=== PATIENT | male | born 1990 | race Caucasian/White ===

== ENCOUNTER 2020-05-17 17:38 | Emergency (ER) | payer SELFPAY ==
[2020-05-17 17:45] VITALS: BP 139/84; PULSE 138; RESP 18; TEMP 36.8; O2SAT 98; BMI 20.5
--- NOTE | 2020-05-17 17:58 | XRR_ITS ---
PROCEDURE INFORMATION: Exam: XR Chest, 1 View Exam date and time: 05/17/2020 6:13 PM Age: 30 years old Clinical indication: Patient HX: C/O shortness of breath and chest pain x 2 weeks. Dyspnea TECHNIQUE: Imaging protocol: XR of the chest Views: 1 view. COMPARISON: CR Chest 2 views* [id number] 09/20/2019 3:57 PM FINDINGS: Lungs: No lung consolidation or pulmonary edema. Pleural space: No pleural effusion or pneumothorax. Heart/Mediastinum: The cardiac silhouette is not enlarged. The mediastinal contours are normal. Bones/joints: No acute osseous abnormality. XR/XR chest 1V portable [id number] IMPRESSION: No acute abnormality.
--- NOTE | 2020-05-17 18:49 | ED_ITS ---
HPI - SOB/Dyspnea General: Chief Complaint: Shortness of Breath/Dyspnea Stated Complaint: covid s/s Time Seen by Provider: 05/17/20 18:06 Source: patient Mode of arrival: ambulatory Limitations: no limitations History of Present Illness: HPI Narrative: Prateek is a nice 30-year-old male who comes in with a complaint of shortness of breath. Patient states that he has an indirect exposure to the COVID-19 virus. He denies any loss of sense of smell, loss of sense of taste, cough, URI symptoms, headache, and fever. She states is possible he had a fever but he never felt as though he did and he never checked. Because of the exposure he was concerned and he presents here to the ER for check Associated symptoms: Deny abdominal pain, chest congestion, chest pain, diaphoresis, dizziness, extremity pain, fever(s), hemoptysis, lightheadedness, nausea, orthopnea, palpitations, syncope or vomiting Review of Systems Const: Denies: fever(s), chills, body aches, fatigue, malaise or diaphoresis Eyes: Denies: change in vision, blurry vision, blind spots, photophobia, eye discharge or eye redness ENMT: Denies: throat pain, odynophagia, hoarseness, swelling of lips/tongue, oral sores, ear or mastoid pain, ear discharge, change in hearing or nasal discharge Card: Denies: chest pain, palpitations, irregular heart rhythm, edema, lightheadedness, syncope, pre-syncope, dyspnea on exertion or orthopnea Resp: Reports: dyspnea; Denies: productive cough, non-productive cough, wheezing, hemoptysis or chest congestion GI: Denies: abdominal pain, nausea, vomiting, hematemesis, coffee ground emesis, heartburn, diarrhea, constipation, GI cramping, hematochezia or melena : Denies: flank pain, dysuria, urinary frequency, urinary urgency or hematuria Musc: Denies: neck pain, back pain, extremity pain, extremity swelling, joint pain, joint swelling, joint redness, joint warmth or joint stiffness Skin/Breast: Denies: rash, pruritus, erythema, skin tenderness or jaundice Neuro: Denies: headache(s), numbness in extremities, weakness in extremities, sensory changes, lack of coordination, difficulty walking, dizziness, vertigo, confusion, Slurred speech present or seizure-like activity Bakari/Lymph: Denies: easy bruising, easy bleeding, petechiae, purpura or enlarged lymph nodes All/Imm: Denies: urticaria, throat swelling, tongue swelling, facial swelling or acute wheezing PFSH ED PFSH: Medical History No pertinent past medical history Surgical History No pertinent past surgical history Physical Exam 2 Const: COMMON NORMALS: no acute distress, patient oriented x3, no limitations, healthy appearing and well nourished GENERAL APPEARANCE: cooperative, well kempt and well developed HENMT: COMMON NORMALS: normocephalic, atraumatic, external ears normal, EAC's normal and Normal external nose present HEAD & SCALP: normal to inspection, normocephalic and atraumatic FACE & SINUS: normal facial exam and face symmetric NOSE: Normal external nose present and Normal nares present EXTERNAL EAR: Yes external ears normal EXTERNAL AUDITORY CANAL: EAC's normal MOUTH: Normal oral and palatal mucosa present, lip normal and tongue normal Eye: COMMON NORMALS: Equal, round and reactive pupils present and conjunctivae normal GENERAL EYE: appearance normal, both eyes and all related structures ALIGNMENT: Yes alignment normal PERIORBITAL: periorbital findings normal EYELID: eyelids normal CONJUNCTIVA: Yes conjunctivae normal SCLERA: sclerae normal PUPIL: Yes Equal, round and reactive pupils present Neck/C-Spine: COMMON NORMALS: full ROM, no lymphadenopathy, supple, no meningeal signs and no JVD GENERAL: Yes normal visual inspection and Yes trachea midline Chest: COMMONS NORMALS: normal inspection of the chest and normal palpation of entire chest wall Resp: COMMON NORMALS: normal respiratory effort, No retractions and No use of accessory muscles EFFORT & INSPECTION: Yes able to speak in complete sentences and Yes symmetric chest movement AUSCULTATION: no crackles, no rales, no rhonchi and no wheezes Cardio: COMMON NORMALS: no JVD, regular rate, regular rhythm, S1 normal heart sound present and S2 normal heart sound present RATE: regular rate RHYTHM: regular rhythm HEART SOUNDS: S1 normal heart sound present, S2 normal heart sound present, no click, no gallops, no murmurs, no rubs and abnormal split S2 GI: COMMON NORMALS: Soft to palpation and No hepatosplenomegaly present PALPATION: Yes Soft to palpation, No Tenderness to palpation present (GI), No Guarding due to palpation present (GI), No Rigid due to palpation, Yes No hepatosplenomegaly present, No Hernia present, No Palpable mass present and No Pulsatile mass present : COMMON NORMALS: Yes no CVA tenderness BLADDER/KIDNEY EXAM: Yes no CVA tenderness Back/Pelvis: COMMON NORMALS: no CVA tenderness, thoracic and lumbar spine normal to inspection, no thoracic nor lumbar tenderness and thoraco-lumbar ROM normal Extremity: COMMON NORMALS: normal to inspection, full ROM, capillary refill normal, no joint enlargement, no clubbing, cyanosis or edema and no calf tenderness Neuro: COMMON NORMALS: patient oriented x3, CN's II-XII intact bilaterally, moves all extremities, no focal motor deficits and no sensory deficits noted MENINGEAL SIGNS: Yes no meningeal signs SPEECH: speech normal Psych: COMMON NORMALS: mental status grossly normal, Normal thought process present, cooperative, normal affect, speech normal and activity/motor behavior normal APPEARANCE: Yes well kempt SPEECH: Yes normal speech THOUGHT PROCESS: Normal thought process present Skin: COMMON NORMALS: no rashes or lesions noted, turgor normal, no jaundice, no petechiae and no mottling GENERAL SKIN EXAM: no rashes or lesions noted and turgor normal Course Vital Signs: Vital signs: Vital Signs Temperature 98.2 F 05/17/20 17:45 Pulse Rate 99 05/17/20 20:15 Respiratory Rate 18 05/17/20 17:45 Blood Pressure 126/85 05/17/20 18:59 Pulse Oximetry 98 05/17/20 17:45 MDM - SOB/Dyspnea MDM Narrative: Medical decision making narrative: Patient is feeling much better and is ready to go home. His heart rate is back down to normal. He is understanding he needs to quarantine himself for the next 14 days until he can get cleared from the COVID. He understands we will contact him with his test results. This time is feeling better. He has no shortness of breath, he has no cough and he has no loss of sense of smell or taste. We will discharge him home but he agrees to return should his symptoms change or worsen. Lab Data: Attestation: I reviewed the patient's lab results. Labs: Lab Results 05/17/20 05/17/20 05/17/20 Range/Units 18:56 18:56 18:56 WBC 11.0 H (4.0-10.0) 10^3/ uL RBC 5.57 H (4.1-5.3) 10^6/u L Hgb 16.8 H (11.7-16.6) g/dL Hct 49.1 (42.0-52.0) % MCV 88.2 (80-94) fL MCH 30.2 (28.0-34.0) pg MCHC 34.2 (30.0-36.0) g/dL RDW 12.3 (12.1-15.1) % Plt Count 275 (130-400) 10^3/c mm MPV 10.4 (7.4-10.4) fL Neut % (Auto) 74.4 % Lymph % (Auto) 17.5 % [place] % (Auto) 7.3 % Eos % (Auto) 0.4 % Baso % (Auto) 0.2 % Neut # (Auto) 8.19 H (1.8-7.7) 10^3/u L Lymph # (Auto) 1.9 (0.8-4.8) 10^3/u L [place] # (Auto) 0.8 (0.2-0.9) 10^3/u L Eos # (Auto) 0.0 (0.0-0.8) 10^3/u L Baso # (Auto) 0.0 (0.0-0.1) 10^3/u L Nucleated RBC % (a uto) 0 % Nucleated RBCs # 0.0 /100WBC D-Dimer <= 0.27 (0-0.59) ug/mIFE U Sodium 141 (136-145) mmol/L Potassium 3.7 (3.5-5.1) mmol/L Chloride 104 (98-107) mmol/L Carbon Dioxide 24 (22-29) mmol/L Anion Gap 16.7 (5-19) BUN 8 (6-20) mg/dL Creatinine 0.8 (0.7-1.2) mg/dL GFR Calculation 115.1 (90-130) mL/min Glucose 96 (65-115) mg/dL Calculated Osmolal ity 288 (285-295) mOsm/k g Lactic Acid (0.5-2.2) mmol/L Calcium 10.5 (8.5-10.5) mg/dL Magnesium 2.3 (1.7-2.3) mg/dL Total Bilirubin 0.5 (0.15-1.2) mg/dL AST 15 (0-40) U/L ALT 17 (0-41) U/L Alkaline Phosphata se 70 (40-130) IU/L Total Protein 7.5 (6.6-8.7) g/dL Albumin 5.0 (3.5-5.2) g/dL Globulin 2.5 (1.3-4.6) g/dL 05/17/20 Range/Units 18:56 WBC (4.0-10.0) 10^3/ uL RBC (4.1-5.3) 10^6/u L Hgb (11.7-16.6) g/dL Hct (42.0-52.0) % MCV (80-94) fL MCH (28.0-34.0) pg MCHC (30.0-36.0) g/dL RDW (12.1-15.1) % Plt Count (130-400) 10^3/c mm MPV (7.4-10.4) fL Neut % (Auto) % Lymph % (Auto) % [place] % (Auto) % Eos % (Auto) % Baso % (Auto) % Neut # (Auto) (1.8-7.7) 10^3/u L Lymph # (Auto) (0.8-4.8) 10^3/u L [place] # (Auto) (0.2-0.9) 10^3/u L Eos # (Auto) (0.0-0.8) 10^3/u L Baso # (Auto) (0.0-0.1) 10^3/u L Nucleated RBC % (a uto) % Nucleated RBCs # /100WBC D-Dimer (0-0.59) ug/mIFE U Sodium (136-145) mmol/L Potassium (3.5-5.1) mmol/L Chloride (98-107) mmol/L Carbon Dioxide (22-29) mmol/L Anion Gap (5-19) BUN (6-20) mg/dL Creatinine (0.7-1.2) mg/dL GFR Calculation (90-130) mL/min Glucose (65-115) mg/dL Calculated Osmolal ity (285-295) mOsm/k g Lactic Acid 1.5 (0.5-2.2) mmol/L Calcium (8.5-10.5) mg/dL Magnesium (1.7-2.3) mg/dL Total Bilirubin (0.15-1.2) mg/dL AST (0-40) U/L ALT (0-41) U/L Alkaline Phosphata se (40-130) IU/L Total Protein (6.6-8.7) g/dL Albumin (3.5-5.2) g/dL Globulin (1.3-4.6) g/dL Imaging Data^: CXR: My impression: No acute cardiopulmonary findings. Discharge Plan Discharge Patient Disposition: Home Clinical Impression: Acute dyspnea Condition: Stable Prescriptions: No Action No Known Home Medications RF: 0 Discharge Orders: Discharge Order (Routine); Ordered 05/17/20 Ordered By: Radha De La Garza Referrals: Andrzej Celaya MD [Primary Care Provider] - 1-3 days Discharge Diet: Advance as tolerated Discharge Activity: Increase activity as tolerated Activity Restrictions/Additional Instructions: Please return to the ER immediately for any of the signs or symptoms listed on your discharge instruction sheets, worsening/changing of your symptoms, you are not getting better as quickly as expected, or for ANY other cause or concerns. Self isolate yourself from everyone until you receive the results of your COVID test. Return to the ER for fever, vomiting, worsening shortness of breath or have any other cause for concern. 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
[2020-05-17 18:59] VITALS: BP 126/85
[2020-05-17 19:14] LABS: Basophils % 0.2 %; Eosinophils % 0.4 %; Hematocrit 49.1 % (42.0-52.0); Hemoglobin 16.8 g/dL (11.7-16.6); Lymphocytes # 1.9 10^3/uL (0.8-4.8); Lymphocytes % 17.5 %; Mean Corpuscular HGB Conc 34.2 g/dL (30.0-36.0); Mean Corpuscular Hemoglobin 30.2 pg (28.0-34.0); Mean Corpuscular Volume 88.2 fL (80-94); Mean Platelet Volume 10.4 fL (7.4-10.4); Monocytes # 0.8 10^3/uL (0.2-0.9); Monocytes % 7.3 %; Neutrophils # 8.19 10^3/uL (1.8-7.7); Neutrophils % 74.4 %; Nucleated Red Blood Cells % 0 %; Platelet Count 275 10^3/cmm (130-400); Red Blood Count 5.57 10^6/uL (4.1-5.3); Red Cell Distribution Width 12.3 % (12.1-15.1)
[2020-05-17 19:28] LABS: D Dimer <= 0.27 ug/mIFEU (0-0.59)
[2020-05-17 19:30] LABS: Lactic Sepsis W/Reflex 1.5 mmol/L (0.5-2.2)
[2020-05-17 19:40] LABS: Alanine Aminotransferase 17 U/L (0-41); Alkaline Phosphatase 70 IU/L (40-130); Anion Gap 16.7 (5-19); Aspartate Amino Transferase 15 U/L (0-40); Blood Urea Nitrogen 8 mg/dL (6-20); Calcium 10.5 mg/dL (8.5-10.5); Carbon Dioxide 24 mmol/L (22-29); Chloride 104 mmol/L (98-107); Creatinine Clr Calc Pharmacy 152.3472; Globulin 2.5 g/dL (1.3-4.6); Glomerular Filtration Rate 115.1 mL/min (90-130); Glucose 96 mg/dL (65-115); Magnesium 2.3 mg/dL (1.7-2.3); Osmolality Calculated 288 mOsm/kg (285-295); Potassium 3.7 mmol/L (3.5-5.1); Sodium 141 mmol/L (136-145); Total Bilirubin 0.5 mg/dL (0.15-1.2); Total Protein 7.5 g/dL (6.6-8.7)
[2020-05-17 20:15] VITALS: PULSE 99
[2020-05-17 20:41] VITALS: BP 115/81; PULSE 94; RESP 16; O2SAT 98
[2020-05-20 01:35] LABS: Quest SARS-CoV-2 RNA NOT DETECTED (NOT DETECTED)
== END 2020-05-17 20:41 | disposition home or self-care (01) ==
PROVIDERS: Emergency Provider Emergency Medicine; PCP Family Medicine
DX: R06.00 Dyspnea, unspecified (principal)
CPT/HCPCS: 12345; 36415; 71045; 80053; 83605; 83735; 85025; 85378; 87040; 87635; 96360; 99283

== ENCOUNTER 2021-06-01 12:56 | Emergency (ER) | payer SELFPAY ==
[2021-06-01 13:22] VITALS: BP 108/67; PULSE 65; RESP 16; TEMP 36.5; O2SAT 97; BMI 20.5
--- NOTE | 2021-06-01 13:56 | ED_ITS ---
HPI - General Adult General: Chief complaint: General Medical Stated complaint: SYNCOPAL EPISODE AFTER SMOKING MARIJUANA Time Seen by Provider: 06/01/21 13:33 History of Present Illness: HPI narrative: Patient states he did not have a syncopal episode. Patient did arrive via ambulance. Patient said he did not want to come but his mother talked him into it. Said after he smoked marijuana he kept repeating same thing over and over. He says he feels fine now. Onset (ago): hour(s) Associated symptoms: Reports no associated symptoms; Deny chest pain, dyspnea, headache(s), nausea, rash or vomiting Review of Systems Const: Denies: fever(s), chills or body aches Eyes: Denies: change in vision or blurry vision ENMT: Denies: throat pain or nasal congestion Card: Denies: chest pain or dyspnea on exertion Resp: Denies: dyspnea, productive cough or non-productive cough GI: Denies: abdominal pain, nausea or vomiting : Denies: difficulty urinating Musc: Denies: extremity pain Skin/Breast: Denies: rash Neuro: Reports: other (Patient says he did not pass out, but felt very tired); Denies: headache(s) Psych: Reports: other (Patient states he just did not feel right after smoking his marijuana today); Denies: anxiety or depression Bakari/Lymph: Denies: easy bruising [facility] ED PFSH: Medical History (Updated 06/01/21 @ 13:56 by YOKO Kumar) No pertinent past medical history Surgical History No pertinent past surgical history Physical Exam Narrative: EXAM NARRATIVE: Patient still appears intoxicated from smoking marijuana today Const: COMMON NORMALS: patient oriented x3 Eye: COMMON NORMALS: Equal, round and reactive pupils present PUPIL: Yes Equal, round and reactive pupils present Cardio: COMMON NORMALS: regular rate and regular rhythm RATE: regular rate RHYTHM: regular rhythm Neuro: COMMON NORMALS: patient oriented x3 Course Vital Signs: Vital signs: Vital Signs Temperature 97.7 F 06/01/21 13:22 Pulse Rate 65 06/01/21 13:22 Respiratory Rate 16 06/01/21 13:22 Blood Pressure 108/67 06/01/21 13:22 Pulse Oximetry 97 06/01/21 13:22 MDM - General Adult MDM Narrative: Medical decision making narrative: Patient states he is ready go home. Patient denies any problems presently. Patient says that he was tired after smoking marijuana today. He said he was forced to come in here did not really want to come in and in 1 to be here now. Patient appears appropriate does appear intoxicated from marijuana smoke. I did discuss since he says he has a history of clinical depression that may be marijuana is not the best choice for him because it can worsen depression. Discharge Plan Discharge Patient Disposition: Home Clinical Impression: Marijuana smoker Condition: Stable Prescriptions: No Action No Known Home Medications RF: 0 Discharge Orders: Discharge ED (Routine); Ordered 06/01/21 Ordered By: Akil Valle Referrals: Andrzej Celaya MD [Primary Care Provider] - Discharge Diet: Usual diet Discharge Activity: Increase activity as tolerated Activity Restrictions/Additional Instructions: Recommend stay away from marijuana if at all possible because history of clinical depression. Follow-up with family medical provider if he have any other problems. Consider other treatment for your medical problems besides marijuana if you can. 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
[2021-06-01 14:03] VITALS: BP 115/71; PULSE 58; RESP 18; O2SAT 95
== END 2021-06-01 14:04 | disposition home or self-care (01) ==
PROVIDERS: Emergency Provider Nurse Practitioner Family; PCP Family Medicine
DX: F12.10 Cannabis abuse, uncomplicated (principal)
CPT/HCPCS: 99282

== ENCOUNTER 2022-04-16 11:12 | Emergency (ER) | payer SELFPAY ==
[2022-04-16 12:22] VITALS: PULSE 90; RESP 18; TEMP 36.7; O2SAT 98
[2022-04-16 12:28] VITALS: BP 89/60
[2022-04-16] MEDS: sodium chloride 0.9% 1,000 ML 999 ML IV ×3 (14:25→17:26)
[2022-04-16] MEDS: ketorolac 30 mg/mL INJ IVP (14:27)
[2022-04-16] MEDS: acetaminophen 500 mg Tablet PO (14:28)
--- NOTE | 2022-04-16 14:31 | ED_ITS ---
HPI - General Adult General: Chief complaint: Urogenital-Male Stated complaint: Back pain/peeing blood Time Seen by Provider: 04/16/22 14:01 History of Present Illness: Patient is a 32-year-old male with a history of prior PEs who presents b/l flank pain and hematuria since this AM. Patient tells me he also has had bilateral lower back pain. Patient denies any prior history of renal colic. Patient denies any prior abdominal surgery. Denies any nausea/vomiting, fever/chills, cough runny nose sore throat, abdominal complaints. Patient denies any testicular pain or new penile discharge. Onset: this morning Duration:ongoing Location:home Severity:moderate Associated symptoms: Deny chest pain, dyspnea, nausea, rash, palpitations or vomiting Review of Systems Const: Denies: fever(s) or chills Eyes: Denies: change in vision ENMT: Denies: mouth pain Card: Denies: chest pain or palpitations Resp: Denies: dyspnea or non-productive cough GI: Denies: abdominal pain, nausea, vomiting or diarrhea : Reports: flank pain (+b/l flank pain) and other (+hematuria); Denies: dysuria Musc: Denies: extremity pain Skin/Breast: Denies: rash or new lesions Neuro: Denies: weakness in extremities Psych: Reports: other (Normal mood) Bakari/Lymph: Denies: easy bruising PFSH ED PFSH: Medical History (Updated 04/16/22 @ 17:35 by Starr Cheatham MD) No pertinent past medical history Surgical History No pertinent past surgical history Social History (Updated 04/16/22 @ 14:32 by Starr Cheatham MD) Smoking and tobacco status: current every day smoker Alcohol intake: never Substance/Drug Use: former Physical Exam Const: COMMON NORMALS: alert HENMT: COMMON NORMALS: atraumatic HEAD & SCALP: atraumatic MOUTH: moist mucous membranes not abnormal Eye: COMMON NORMALS: EOMs intact bilaterally and conjunctivae normal CONJUNCTIVA: Yes conjunctivae normal Neck/C-Spine: COMMON NORMALS: full ROM and supple Resp: COMMON NORMALS: normal respiratory effort and clear to auscultation bilaterally AUSCULTATION: clear to auscultation bilaterally Cardio: COMMON NORMALS: regular rate RATE: regular rate GI: COMMON NORMALS: Soft to palpation and non-tender PALPATION: Yes Soft to palpation OTHER: No focal TTP. NO guarding rebound, guarding, rigidity. +B/l CVA tenderness to percussion. Neg /Neg McBurney's point tenderness, no suprabupic tenderness to palpation. Extremity: COMMON NORMALS: full ROM Neuro: SENSORIUM/ORIENTATION: Yes alert MOTOR EXAM: No Abnormal motor strength present and Other motor observations present (no focal motor deficits) Psych: COMMON NORMALS: speech normal SPEECH: Yes normal speech MOOD & AFFECT: Yes euthymic mood Course Vital Signs: Vital signs: Vital Signs Temperature 98.0 F 04/16/22 18:07 Pulse Rate 90 04/16/22 18:07 Respiratory Rate 18 04/16/22 18:07 Blood Pressure 89/60 04/16/22 18:07 Pulse Oximetry 98 04/16/22 18:07 MDM - General Adult Medical Decision Making 32-year-old male presents emergency room for evaluation of bilateral flank pain and hematuria. Patient has bilateral CVA tenderness to palpation. Afebrile. White count 6.9. UA is consistent with renal colic. Creatinine 1.0. Patient received 2L IVF with morphine/toradol and reports there is improvement in pain. I have given patient close follow-up with urology for reneal colic Patient is given strict intervention for any signs of infection. No suspicion for other acute intra-abdominal pathology including SBO, biliary pathology, appendicitis, diverticulitis, or other emergent condition requiring surgery. I have given patient follow up with our case monitor to be seen by our outpatient Urology for kidney stones. Patient aware of a call from our case monitor to schedule for appointment(s) and verbalizes understanding of the importance of following up. Rx perocet PRN pain Disposition: Discharge. Patient counseled regarding diagnostic impression, treatment plan. Patient given ED strict return precautions to return for continuation, worsening, or development of new symptoms. Instructed to f/u w/ PCP regarding symptoms today. Patient verbalized understanding. Lab Data : 04/16/22 14:29 04/16/22 14:29 Laboratory Results WBC 6.9 10^3/uL (4.0-10.0) 04/16/22 14:29 RBC 5.00 10^6/uL (4.1-5.3) 04/16/22 14: Hgb 15.5 g/dL (11.7-16.6) 04/16/22 14:29 Hct 43.1 % (42.0-52.0) 04/16/22 14: MCV 86.2 fl (80-94) 04/16/22 14: MCH 31.0 pg (28.0-34.0) 04/16/22 14: MCHC 36.0 g/dL (30.0-36.0) 04/16/22 14: RDW 11.9 % (12.1-15.1) L 04/16/22 14: Plt Count 192 10^3/cmm (130-400) 04/16/22 14: MPV 10.8 fL (7.4-10.4) H 04/16/22 14: Neut % (Auto) 57.1 % 04/16/22 14: Lymph % (Auto) 30.7 % 04/16/22 14: [place] % (Auto) 9.0 % 04/16/22 14:29 Eos % (Auto) 2.8 % 04/16/22 14: Baso % (Auto) 0.1 % 04/16/22 14: Neut # (Auto) 3.92 10^3/uL (1.8-7.7) 04/16/22 14: Lymph # (Auto) 2.1 10^3/uL (0.8-4.8) 04/16/22 14:29 [place] # (Auto) 0.6 10^3/uL (0.2-0.9) 04/16/22 14:29 Eos # (Auto) 0.2 10^3/uL (0.0-0.8) 04/16/22 14: Baso # (Auto) 0.0 10^3/uL (0.0-0.1) 04/16/22 14: Nucleated RBC % (auto) 0 % 04/16/22 14: Nucleated RBCs # 0.0 /100WBC 04/16/22 14:29 Sodium 138 mmol/L (136-145) 04/16/22 14: Potassium 4.2 mmol/L (3.5-5.1) 04/16/22 14:29 Chloride 98 mmol/L (98-107) 04/16/22 14:29 Carbon Dioxide 27 mmol/L (22-29) 04/16/22 14:29 Anion Gap 17.2 (5-19) 04/16/22 14:29 BUN 19 mg/dL (6-20) 04/16/22 14: Creatinine 1.0 mg/dL (0.7-1.2) 04/16/22 14:29 GFR Calculation 87.7 mL/min (90-130) L 04/16/22 14:29 Glucose 81 mg/dL (65-115) 04/16/22 14:29 Calculated Osmolality 287 mOsm/kg (285-295) 04/16/22 14: Calcium 9.4 mg/dL (8.5-10.5) 04/16/22 14: Total Bilirubin 0.4 mg/dL (0.15-1.2) 04/16/22 14: AST 19 U/L (0-40) 04/16/22 14: ALT 11 U/L (0-41) 04/16/22 14: Alkaline Phosphatase 56 IU/L (40-130) 04/16/22 14:29 Total Protein 6.7 g/dL (6.6-8.7) 04/16/22 14: Albumin 4.4 g/dL (3.5-5.2) 04/16/22 14: Globulin 2.3 g/dL (1.3-4.6) 04/16/22 14:29 Urine Color Kel[place] (Yellow) 04/16/22 16:18 Urine Appearance Cloudy (CLEAR) 04/16/22 16:18 Urine pH 5 (5-7) 04/16/22 16:18 Ur Specific [place] 1.030 (1.005-1.030) 04/16/22 16:18 Urine Protein Neg (Negative) 04/16/22 16:18 Urine Glucose (UA) Norm (Normal) 04/16/22 16:18 Urine Ketones Negative (Negative) 04/16/22 16:18 Urine Blood 3+ (Negative) H 04/16/22 16:18 Urine Nitrate Negative (Negative) 04/16/22 16:18 Urine Bilirubin Neg (Negative) 04/16/22 16:18 Urine Urobilinogen Norm mg/dL (Negative) 04/16/22 16:18 Ur Leukocyte Esterase Negative (Negative) 04/16/22 16:18 Urine RBC >100 /hpf (0-2) H 04/16/22 16:18 Urine WBC 0-4 /hpf (0-5) H 04/16/22 16:18 Ur Squamous Epith Cells Rare /hpf (0-5) 04/16/22 16:18 Amorphous Sediment Not Reportable 04/16/22 16:18 Urine Bacteria Trace /hpf (NONE) 04/16/22 16:18 Urine Mucus Trace /hpf 04/16/22 16:18 Discharge Plan Discharge Patient Disposition: Home Clinical Impression: Bilateral renal colic Prescriptions: New acetaminophen 500 mg tablet 500 mg PO Q6H PRN (Reason: pain) 5 Days Qty: 20 0RF Discharge Orders: Discharge ED (Routine); Ordered 04/17/22 Ordered By: Starr Cheatham Referrals: Andrzej Celaya MD [Primary Care Provider] - Discharge Diet: Advance as tolerated Discharge Activity: Increase activity as tolerated Patient Instructions: Abdominal Pain (ED) Activity Restrictions/Additional Instructions: Our case monitor will have you follow-up with Urology in the next few days. You would be expected to have a phone call with our case monitor who will put you on the schedule. You can expect a call from us in the next 2-3 days. If you don't hear from us, call us back in the emergency room at [phone]. Please come back if you have any worsening abdominal pain, fever or chills, nausea or vomiting, diarrhea, blood in the stool, inability hold down liquid or solids, or any new concerning complaints. 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
[2022-04-16 14:32] VITALS: BP 89/60; PULSE 90; RESP 18; TEMP 36.7; O2SAT 98
[2022-04-16 15:13] LABS: Basophils % 0.1 %; Eosinophils # 0.2 10^3/uL (0.0-0.8); Eosinophils % 2.8 %; Hematocrit 43.1 % (42.0-52.0); Hemoglobin 15.5 g/dL (11.7-16.6); Lymphocytes # 2.1 10^3/uL (0.8-4.8); Lymphocytes % 30.7 %; Mean Corpuscular Volume 86.2 fl (80-94); Mean Platelet Volume 10.8 fL (7.4-10.4); Monocytes # 0.6 10^3/uL (0.2-0.9); Neutrophils # 3.92 10^3/uL (1.8-7.7); Neutrophils % 57.1 %; Nucleated Red Blood Cells % 0 %; Platelet Count 192 10^3/cmm (130-400); Red Cell Distribution Width 11.9 % (12.1-15.1); White Blood Count 6.9 10^3/uL (4.0-10.0)
[2022-04-16 16:22] LABS: Alanine Aminotransferase 11 U/L (0-41); Albumin Level 4.4 g/dL (3.5-5.2); Alkaline Phosphatase 56 IU/L (40-130); Anion Gap 17.2 (5-19); Aspartate Amino Transferase 19 U/L (0-40); Blood Urea Nitrogen 19 mg/dL (6-20); Calcium 9.4 mg/dL (8.5-10.5); Carbon Dioxide 27 mmol/L (22-29); Chloride 98 mmol/L (98-107); Globulin 2.3 g/dL (1.3-4.6); Glomerular Filtration Rate 87.7 mL/min (90-130); Glucose 81 mg/dL (65-115); Osmolality Calculated 287 mOsm/kg (285-295); Potassium 4.2 mmol/L (3.5-5.1); Sodium 138 mmol/L (136-145); Total Bilirubin 0.4 mg/dL (0.15-1.2); Total Protein 6.7 g/dL (6.6-8.7)
[2022-04-16 16:51] LABS: Add Urine Microscopic? YES; Bilirubin Urine Neg (Negative); Blood Urine 3+ (Negative); Glucose Urine UA Norm (Normal); Ketones Urine Negative (Negative); Leukocyte Esterase Urine Negative (Negative); Nitrate Urine Negative (Negative); Protein Urine Neg (Negative); Urine Appearance Cloudy (CLEAR); Urine Color Amber (Yellow); Urobilinogen Urine Norm (Negative); pH Urine 5 (5-7)
[2022-04-16 16:53] LABS: Bacteria Urine TRACE /hpf; Mucus Urine TRACE /hpf; RBC Urine >100 /hpf (0-2); Squamous Epithelial Cell Urine RARE /hpf (0-5); WBC Urine 0-4 /hpf (0-5)
[2022-04-16 16:54] LABS: Add Urine Culture? Yes
[2022-04-16] MEDS: morphine 4 mg/mL SDV 1 mL IVP (17:26)
[2022-04-16 18:07] VITALS: BP 89/60; PULSE 90; RESP 18; TEMP 36.7; O2SAT 98
--- NOTE | 2022-04-24 11:40 | DCPLANNER ---
Addendum entered by Yue Ace 05/15/22 11:17: gift shop manager was sent the following message about follow up appointment: Clinic tried numerous times and different days to contact this pt. Clinic is not able to reach pt. so the appt. on 05/16/22 will be cancelled. If you have any questions or another phone number please let us know. Batsheva On 04/26/22 @ 17:06 Mik Barboza Wrote To Urology Front Office Patient scheduled for 05/16/22 [id number]@[id number] Appointment to follow. Unable to reach patient. Mik Barboza completed item. Original Note: gift shop manager had message to schedule a follow up appointment for patient with urology. gift shop manager sent patients information to the front office staff at urology. Patients information will be printed and reviewed. Clinic will call patient with appointment information.
== END 2022-04-16 18:10 | disposition home or self-care (01) ==
PROVIDERS: Physician Assistant; Emergency Provider Emergency Medicine; PCP Family Medicine
DX: N23 Unspecified renal colic (principal); F17.210 Nicotine dependence, cigarettes, uncomplicated
CPT/HCPCS: 80053; 81001; 85025; 87086; 96361; 96374; 96375; 96376; 99284; J1885; J2270; J7030

== ENCOUNTER 2023-02-01 12:16 | Emergency (ER) | payer SELFPAY ==
[2023-02-01 11:58] VITALS: BP 124/78; PULSE 105; RESP 16; TEMP 36.7; O2SAT 97; BMI 21.8
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
== END 2023-02-01 12:22 | disposition left against medical advice (07) ==
LOC: ER 12:21
PROVIDERS: Emergency Provider Emergency Medicine; PCP Family Medicine
DX: Z04.1 Encounter for examination and observation following transport accident (principal); F11.90 Opioid use, unspecified, uncomplicated; Z53.21 Procedure and treatment not carried out due to patient leaving prior to being seen by health care provider; F17.210 Nicotine dependence, cigarettes, uncomplicated; V89.2XXA Person injured in unspecified motor-vehicle accident, traffic, initial encounter
CPT/HCPCS: 99282

== ENCOUNTER 2023-02-08 22:57 | Inpatient (IN) | payer SELFPAY ==
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
--- NOTE | 2023-02-08 22:58 | XRR_ITS ---
PROCEDURE INFORMATION: Exam: XR Chest Exam date and time: 02/08/2023 11:09 PM Age: 32 years old Clinical indication: Other: AMS; Additional info: AMS. Od TECHNIQUE: Imaging protocol: Radiologic exam of the chest. Views: 1 view. COMPARISON: CR XR chest 1V portable [id number] 05/17/2020 6:00 PM FINDINGS: Tubes, catheters and devices: Endotracheal tube tip in place 2.8 cm above the felicitas. Lungs: Bilateral right greater left pneumonic infiltrates. Pleural spaces: Unremarkable. No pleural effusion. No pneumothorax. Heart/Mediastinum: Unremarkable. No cardiomegaly. Bones/joints: Unremarkable. XR/XR chest 1V portable [id number] IMPRESSION: 1. Endotracheal tube tip in place 2.8 cm above the felicitas. 2. Bilateral right greater left pneumonic infiltrates.
--- NOTE | 2023-02-08 22:58 | ECG_ITS ---
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 Measurements Intervals [place] Rate: 86 P: 64 SC: 168 QRS: 94 QRSD: 95 T: 69 QT: 327 QTc: 391 Interpretive Statements SINUS RHYTHM BORDERLINE RIGHT AXIS DEVIATION [QRS AXIS > 90] Compared to ECG 09/20/2019 19:37:16 Sinus bradycardia no longer present Sinus arrhythmia no longer present Electronically Signed On 02-09-2023 21:57:02 CDT by Lupe Reed M.D. [id number]
[2023-02-08 23:00] VITALS: BP 164/94; PULSE 76; RESP 17; O2SAT 82
[2023-02-08 23:01] VITALS: BP 164/94; PULSE 83; RESP 18; TEMP 35.6; O2SAT 84; BMI 23.1
[2023-02-08 23:07] VITALS: RESP 18
[2023-02-08 23:09] LABS: Arterial Blood Gas Hematocrit 58.1 % (42-52); Base Excess ABG -4.1 mmol/L (-2.0-2.0); Blood Gas Allen Test Pos; Blood Gas Sample Site Radial, right; Blood Gas Sample Type Arterial; HCO3 ABG 29.3 mmol/L (22-26); Oxygen Device VENT; PO2 ABG 60.3 mmHg (80.0-100.0)
[2023-02-08 23:10] LABS: ABG PCO2 92.4 mmHg (35-45); ABG PH Result 7.11 (7.35-7.45)
[2023-02-08 23:30] VITALS: BP 163/99; PULSE 72; RESP 21; O2SAT 88
[2023-02-08] MEDS: propofol 10 mg/mL SDV 20 mL 50 MG IVP (23:30)
[2023-02-08 23:43] VITALS: BP 165/101; PULSE 97; RESP 24; O2SAT 79
[2023-02-08 23:49] LABS: Urine Appearance SL Hazy (CLEAR); Urine Color Yellow (Yellow)
[2023-02-08 23:50] LABS: Add Urine Microscopic? YES; Bilirubin Urine Neg (Negative); Blood Urine 3+ (Negative); Glucose Urine UA 4+ (Normal); Ketones Urine Negative (Negative); Leukocyte Esterase Urine 1+ (Negative); Nitrate Urine Negative (Negative); Protein Urine 2+ (Negative); RBC Urine 15-25 /hpf (0-2); Urobilinogen Urine Neg (Negative); pH Urine 5 (5-7)
[2023-02-08 23:52] LABS: Add Urine Culture? Yes; Bacteria Urine 1+ /hpf; Squamous Epithelial Cell Urine 0-4 /hpf (0-5); WBC Urine 15-25 /hpf (0-5)
[2023-02-09] VITALS (96 sets, daily range): BP systolic 74–143; BP diastolic 48–91; PULSE 80–117; RESP 16–30; TEMP 36.7–37.4; O2SAT 90–100
[2023-02-09] MEDS: propofol 1,000 MG/100 ML INJ 24.49 MG IV ×3 (00:07→21:41)
[2023-02-09 00:10] LABS: Amphetamines Screen Urine Negative (Negative); Barbiturates Screen Urine Negative (Negative); Benzodiazepines Screen Urine Positive (Negative); Cocaine Screen Urine Negative (Negative); Opiate Screen Urine Negative (Negative); PCP Screen Urine Negative (Negative); THC Screen Urine Positive (Negative)
[2023-02-09] MEDS: propofol 10 mg/mL SDV 20 mL 50 MG IVP ×2 (00:15)
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
--- NOTE | 2023-02-09 00:34 | W.ED.OVERDOS ---
HPI - Overdose General: Chief Complaint: Overdose Stated Complaint: OD Time Seen by Provider: 02/08/23 22:58 Source: EMS Mode of arrival: EMS Limitations: altered mental status History of Present Illness: 32-year-old male with a history of IV drug abuse family found him down unresponsive did initiate CPR when EMS arrived they states he was unresponsive did give him Narcan with no response patient was intubated in route. Pupils have been pinpoint. Patient currently is intubated he is not moving at this time. He is hypothermic with temperature 96 Review of Systems General: Reports: ROS unobtainable due to mental status [facility] ED PFSH: Medical History (Updated 02/09/23 @ 02:50 by Leland Rinaldi MD) No pertinent past medical history Surgical History No pertinent past surgical history Social History Smoking and tobacco status: current every day smoker Alcohol intake: never Substance/Drug Use: former Physical Exam Const: COMMON NORMALS: apparent distress and negative for patient oriented x3 HENMT: COMMON NORMALS: normocephalic and atraumatic HEAD & SCALP: normocephalic and atraumatic Eye: OTHER: Patient currently intubated his pupils are unreactive Neck/C-Spine: COMMON NORMALS: supple Chest: COMMONS NORMALS: normal inspection of the chest and normal palpation of entire chest wall Resp: OTHER: And abated diffuse rales bilaterally Cardio: RATE: tachycardic GI: COMMON NORMALS: Normal to inspection, nondistended, normoactive bowel sounds present, Soft to palpation and non-tender PALPATION: Yes Soft to palpation Back/Pelvis: COMMON NORMALS: thoracic and lumbar spine normal to inspection Extremity: COMMON NORMALS: normal to inspection Neuro: COMMON NORMALS: negative for patient oriented x3 Psych: COMMON NORMALS: negative for mental status grossly normal Skin: COMMON NORMALS: no rashes or lesions noted GENERAL SKIN EXAM: no rashes or lesions noted Course Vital Signs: Vital signs: Vital Signs Temperature 96.0 F L 02/08/23 23:01 Pulse Rate 106 H 02/09/23 02:00 Respiratory Rate 28 H 02/09/23 02:00 Blood Pressure 94/68 02/09/23 02:00 Pulse Oximetry 97 04/21/23 02:00 Oxygen Delivery Me thod Mechanical Ventil ation 02/08/23 23:01 Fraction of Inspir ed Oxygen 100 02/08/23 23:07 MDM - Overdose Medical Decision Making Patient presents here after an overdose he is intubated in the field he does have either pulmonary hemorrhage or pneumonia he did aspirate some in the field. He has a very tiny pneumothorax on the CT scan CT head and CT abdomen pelvis are normal he started to wake up now he will follow commands he is mouthing words we will squeeze her hand I did speak to the hospitalist will admit the ICU. Lab Data 02/09/23 02:30 02/09/23 00:13 Radiology Impressions Chest X-Ray 02/08/23 22:58 IMPRESSION: 1. Endotracheal tube tip in place 2.8 cm above the felicitas. 2. Bilateral right greater left pneumonic infiltrates. Head CT 02/08/23 22:58 IMPRESSION: Right sylvian fissure subtle hyperdensity likely reflects a vessel, subarachnoid hemorrhage is felt unlikely, series 3, image 18, please correlate clinically, consideration to short-term follow-up exam can be given. Cervical Spine CT 02/09/23 00:21 IMPRESSION: 1. Negative for fracture or dislocation. 2. Equivocal trace anterior right upper lobe pneumothorax, series 5, image 109, chest CT could further characterize this. Chest/Abdomen/Pelvis CT 02/09/23 00:21 IMPRESSION: 1. There is a small right pneumothorax. 2. Bilateral pulmonary opacities with consolidations in the lower lobes. Findings may be secondary to edema, hemorrhage or pneumonia. 3. The examination is limited by patient motion. 4. Support tubes and lines are in good position. IMPRESSION: No acute disease. ADDENDUM: 02/09/23 0148 THIS REPORT CONTAINS FINDINGS THAT MAY BE CRITICAL TO PATIENT CARE. The findings were verbally communicated by me to LELAND RINALDI via telephone conference at 1:46 AM CDT on 02/09/2023. The findings were acknowledged and understood. Laboratory Results WBC Cancelled 02/09/23 00:13 Corrected WBC Cancelled 02/09/23 00:13 RBC Cancelled 02/09/23 00:13 Hgb Cancelled 02/09/23 00:13 Hct Cancelled 02/09/23 00:13 MCV Cancelled 02/09/23 00:13 MCH Cancelled 02/09/23 00:13 MCHC Cancelled 02/09/23 00:13 RDW Cancelled 02/09/23 00:13 Plt Count Cancelled 02/09/23 00:13 MPV Cancelled 02/09/23 00:13 Gran % Cancelled 02/09/23 00:13 Neut % (Auto) Cancelled 02/09/23 00:13 Lymph % (Auto) Cancelled 02/09/23 00:13 [place] % (Auto) Cancelled 02/09/23 00:13 Eos % (Auto) Cancelled 02/09/23 00:13 Baso % (Auto) Cancelled 02/09/23 00:13 Neut # (Auto) Cancelled 02/09/23 00:13 Lymph # (Auto) Cancelled 02/09/23 00:13 [place] # (Auto) Cancelled 02/09/23 00:13 Eos # (Auto) Cancelled 02/09/23 00:13 Baso # (Auto) Cancelled 02/09/23 00:13 Absolute Gran (auto) Cancelled 02/09/23 00:13 Nucleated RBC % (auto) Cancelled 02/09/23 00:13 Nucleated RBCs # Cancelled 02/09/23 00:13 Specimen Type Arterial 02/08/23 22:57 Sample Site Radial, right 02/08/23 22:57 ABG pH 7.11 (7.35-7.45) L* 02/08/23 22:57 ABG pCO2 92.4 mmHg (35-45) H* 02/08/23 22:57 ABG pO2 60.3 mmHg (80.0-100.0) L 02/08/23 22:57 ABG HCO3 29.3 mmol/L (22-26) H 02/08/23 22:57 ABG Base Excess -4.1 mmol/L (-2.0-2.0) L 02/08/23 22:57 Greg Test Pos 02/08/23 22:57 Hematocrit 58.1 % (42-52) H 02/08/23 22:57 O2 Delivery Device Vent 02/08/23 22:57 FiO2 100.0 % 02/08/23 22:57 PEEP 10.0 cmH20 02/08/23 22:57 Behavioral Therapy Coordinator ID Boris 02/08/23 22:57 Sodium 136 mmol/L (136-145) 02/09/23 00:13 Potassium 5.7 mmol/L (3.5-5.1) H 02/09/23 00:13 Chloride 98 mmol/L (98-107) 02/09/23 00:13 Carbon Dioxide 27 mmol/L (22-29) 02/09/23 00:13 Anion Gap 16.7 (5-19) 02/09/23 00:13 BUN 19 mg/dL (6-20) 02/09/23 00:13 Creatinine 1.5 mg/dL (0.7-1.2) H 02/09/23 00:13 GFR Calculation 55.0 mL/min (90-130) L 02/09/23 00:13 Glucose 174 mg/dL (65-115) H 02/09/23 00:13 Calculated Osmolality 288 mOsm/kg (285-295) 02/09/23 00:13 Lactate Cancelled 02/09/23 00:13 Calcium 8.5 mg/dL (8.5-10.5) 02/09/23 00:13 Total Bilirubin 0.5 mg/dL (0.15-1.2) 02/09/23 00:13 AST 243 U/L (0-40) H 02/09/23 00:13 ALT 238 U/L (0-41) H 02/09/23 00:13 Alkaline Phosphatase 87 U/L (40-130) 02/09/23 00:13 Total Protein 7.0 g/dL (6.6-8.7) 02/09/23 00:13 Albumin 4.1 g/dL (3.5-5.2) 02/09/23 00:13 Globulin 2.9 g/dL (1.3-4.6) 02/09/23 00:13 Urine Color Yellow (Yellow) 02/08/23 23:18 Urine Appearance Sl hazy (CLEAR) A 02/08/23 23:18 Urine pH 5 (5-7) 02/08/23 23:18 Ur Specific [place] 1.030 (1.005-1.030) 02/08/23 23:18 Urine Protein 2+ (Negative) H 04/20/23 23:18 Urine Glucose (UA) 4+ (Normal) H 02/08/23 23:18 Urine Ketones Negative (Negative) 02/08/23 23:18 Urine Blood 3+ (Negative) H 02/08/23 23:18 Urine Nitrate Negative (Negative) 02/08/23 23:18 Urine Bilirubin Neg (Negative) 02/08/23 23:18 Urine Urobilinogen Neg mg/dL (Negative) 02/08/23 23:18 Ur Leukocyte Esterase 1+ (Negative) H 02/08/23 23:18 Urine RBC 15-25 /hpf (0-2) H 02/08/23 23:18 Urine WBC 15-25 /hpf (0-5) H 02/08/23 23:18 Ur Squamous Epith Cells 0-4 /hpf (0-5) H 02/08/23 23:18 Amorphous Sediment Not Reportable 02/08/23 23:18 Urine Bacteria 1+ /hpf (NONE) H 02/08/23 23:18 Salicylates < 0.3 mg/dL (3-10) L 02/09/23 00:13 Urine Opiates Screen Negative ng/mL (Negative) 02/08/23 23:18 Acetaminophen < 5.0 ug/mL (10-30) L 02/09/23 00:13 Ur Barbiturates Screen Negative ng/mL (Negative) 02/08/23 23:18 Ur Phencyclidine Scrn Negative ng/mL (Negative) 02/08/23 23:18 Ur Amphetamines Screen Negative ng/mL (Negative) 02/08/23 23:18 U Benzodiazepines Scrn Positive ng/mL (Negative) H 02/08/23 23:18 Urine Cocaine Screen Negative ng/mL (Negative) 02/08/23 23:18 U Marijuana (THC) Screen Positive ng/mL (Negative) H 02/08/23 23:18 Ethyl Alcohol < 10 mg/dL (0-10) 02/09/23 00:13 EKG Data EKG 1: I personally reviewed and interpreted this EKG as follows: EKG interpretation date: 02/09/23 EKG interpretation time: 23:04 Interpretation: nsr hr [address] or t wave abnormalities qrs 95 qtc 370 Critical Care Time Critical Care Time: Critical Care Time: Yes Total Critical Care Time: 50 Attestation: The high probability of a clinically significant, sudden or life threatening deterioration of the patient's resp system(s) required my full and direct attention, intervention and personal management. The critical care time is as shown. This time is in addition to time spent performing any reported procedures but includes the following: [x] Data and vital sign review and interpretation [x] Patient assessment, examination and intervention [x] Documentation [x] Medication orders and management Discharge Plan Discharge Admit Provider: Andrzej Celaya Clinical Impression: Drug overdose, Respiratory failure, Pneumonia Condition: Stable Coding Level of Care Code ED Electroencephalograph Technologist for Sreedhar Bhat
[2023-02-09 00:42] LABS: Alanine Aminotransferase 238 U/L (0-41); Albumin Level 4.1 g/dL (3.5-5.2); Alkaline Phosphatase 87 U/L (40-130); Blood Urea Nitrogen 19 mg/dL (6-20); Calcium 8.5 mg/dL (8.5-10.5); Carbon Dioxide 27 mmol/L (22-29); Chloride 98 mmol/L (98-107); Globulin 2.9 g/dL (1.3-4.6); Glucose 174 mg/dL (65-115); Osmolality Calculated 288 mOsm/kg (285-295); Sodium 136 mmol/L (136-145); Total Bilirubin 0.5 mg/dL (0.15-1.2)
[2023-02-09 00:44] LABS: Acetaminophen < 5.0 ug/mL (10-30); Alcohol Level < 10 mg/dL (0-10); Salicylate < 0.3 mg/dL (3-10)
[2023-02-09 00:45] LABS: Anion Gap 16.7 (5-19); Potassium 5.7 mmol/L (3.5-5.1)
[2023-02-09 00:46] LABS: Aspartate Amino Transferase 243 U/L (0-40)
[2023-02-09] MEDS: iohexol 350 mg/mL 500 mL Btl (per mL) IV (01:03)
[2023-02-09] MEDS: sodium chloride 0.9% 1,000 ML 999 ML IV ×2 (02:05→02:06)
[2023-02-09] MEDS: piperacillin-tazobactam 3.375 GM in sodium chloride 0.9% (plus) 50 ML IV ×3 (02:09→17:44)
--- NOTE | 2023-02-09 02:25 | XRR_ITS ---
PROCEDURE INFORMATION: Exam: XR Chest Exam date and time: 02/09/2023 2:39 AM Age: 32 years old Clinical indication: Other: Pneumothorax TECHNIQUE: Imaging protocol: Radiologic exam of the chest. Views: 1 view. COMPARISON: CT chest abdpel w/*[id number] 02/09/2023 1:23 AM FINDINGS: Tubes, catheters and devices: Endotracheal tube is in good position. Orogastric tube is in place. Lungs: Stable bilateral pulmonary infiltrates. Pleural spaces: Small pneumothorax along the right side of the heart border. Heart/Mediastinum: Unremarkable. No cardiomegaly. Bones/joints: Unremarkable. XR/XR chest 1V portable [id number] IMPRESSION: 1. Small pneumothorax along the right side of the heart border, grossly stable in size compared to the previous examination.. 2. Stable bilateral pulmonary infiltrates. 3. Endotracheal tube is in good position.
[2023-02-09 02:39] LABS: Basophils % 0.4 %; Eosinophils % 0.1 %; Hematocrit 57.5 % (42.0-52.0); Hemoglobin 19.4 g/dL (11.7-16.6); Lymphocytes # 1.2 10^3/uL (0.8-4.8); Lymphocytes % 14.7 %; Mean Corpuscular HGB Conc 33.7 g/dL (30.0-36.0); Mean Corpuscular Hemoglobin 32.2 pg (28.0-34.0); Mean Corpuscular Volume 95.5 fl (80-94); Monocytes # 0.3 10^3/uL (0.2-0.9); Monocytes % 3.3 %; Neutrophils # 6.54 10^3/uL (1.8-7.7); Nucleated Red Blood Cells % 0 %; Platelet Count 183 10^3/cmm (130-400); Red Blood Count 6.02 10^6/uL (4.1-5.3); Red Cell Distribution Width 13.1 % (12.1-15.1); White Blood Count 8.1 10^3/uL (4.0-10.0)
--- NOTE | 2023-02-09 02:55 | ECG_ITS ---
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 Measurements Intervals [place] Rate: 105 P: 58 ME: 143 QRS: 101 QRSD: 89 T: 57 QT: 301 QTc: 398 Interpretive Statements SINUS TACHYCARDIA RIGHT AXIS DEVIATION [QRS AXIS > 100] Compared to ECG 02/08/2023 23:04:53 Sinus rhythm no longer present Electronically Signed On 02-09-2023 22:20:07 CDT by Lupe Reed M.D. [id number]
[2023-02-09 02:56] LABS: Troponin(5th) Baseline 77 ng/L (0-15)
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
--- NOTE | 2023-02-09 03:35 | ECG_ITS ---
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 Measurements Intervals [place] Rate: 107 P: 51 MN: 139 QRS: 89 QRSD: 88 T: 57 QT: 294 QTc: 394 Interpretive Statements SINUS TACHYCARDIA ABNORMAL RHYTHM ECG Compared to ECG 02/08/2023 23:04:53 Sinus rhythm no longer present Electronically Signed On 02-09-2023 21:57:18 CDT by Lupe Reed M.D. [email or web address].V[employer] Mediaselect specialty [email or web address] Systemsaultman alliance community hospitalALICE [id number]
[2023-02-09] MEDS: propofol 1,000 MG/100 ML INJ 14.7 MG IV ×2 (03:53→17:51)
--- NOTE | 2023-02-09 03:53 | PC.PHAR ---
Pharmacokinetic dosing service Date: 02/09/23 Time: 352 Objective: Patient: Tu Koehler Floor: ICU-11 Age: 32 yo Serum creatinine: 1.5 mg/dL Height: 74.0 Inches Weight (kg): 81.647 Diagnosis: Relevant medical/social history: Cultures and sensitivities: Other labs: Assessment: IBW (kg): 82.20 Dosing wt(kg): 81.647 Estimated Creatinine clearance (ml/min): 83.2 CRCL method: Cockcroft and Gault using ibw(default). Drug selected: Vancomycin Loading dose (mg): 0 Vd (liters): 73.5 (factor used: 0.9 L/kg) Nacho (hr-1): 0.073 Half life (hrs): 9.50 Recommended dose: 1250 mg Interval: 12 hrs Infusion time (hrs): 1.5 Predicted peak (mcg/mL): 27.6 Predicted trough (mcg/mL): 12.82 Total body weight is being used for vancomycin dosing. Renal function is stable [ ] /unstable [ ] Recommendations: Give Vancomycin 1250 mg q 12 hrs with an expected Cpeak of 27.6 mcg/ml and an expected Ctrough of 12.82 mcg/ml Renal dosing of other antibiotics (review renal dosing of other medications and list guidelines here): Thank you for the consult, will continue to follow. Signature: Katja Fiore [facility]
[2023-02-09] MEDS: vancomycin 1,250 MG/250 ML PIGGYBACK 250 MG IV (04:03)
[2023-02-09] MEDS: sodium chloride 0.9% 1,000 ML 75 ML IV ×2 (04:03→16:30)
[2023-02-09] MEDS: pantoprazole 40 mg SDV IVP (04:03)
[2023-02-09] MEDS: enoxaparin 40 mg/0.4 mL Syringe SUBCUT (04:03)
--- NOTE | 2023-02-09 04:30 | XRR_ITS ---
PROCEDURE INFORMATION: Exam: XR Chest Exam date and time: 02/09/2023 6:05 AM Age: 32 years old Clinical indication: Other: Pneumo follow up; Additional info: Pneumothorax TECHNIQUE: Imaging protocol: Radiologic exam of the chest. Views: 1 view. COMPARISON: CR (CHEST, ) 02/09/2023 2:39 AM FINDINGS: Tubes, catheters and devices: ET tube in adequate position 5 cm above the felicitas. NG tube coursing below the field of view into the stomach. Lungs: There is diffuse airspace disease with bilateral alveolar infiltrates more pronounced on the right slightly progressed from previous examination. There is a very small pneumothorax along the mediastinal pleural reflection adjacent to the right heart border and right apex unchanged. Pleural spaces: No significant pleural effusion Heart/Mediastinum: No cardiomegaly. No significant interval change. Bones/joints: Unremarkable for age. XR/XR chest 1V portable [id number] IMPRESSION: 1. Diffuse airspace disease more pronounced on the right slightly progressed from previous exam. 2. Minimal right pneumothorax, stable.
[2023-02-09 04:52] LABS: Estmated Average Glucose 88; Hemoglobin A1C 4.7 % (4.0-6.0)
[2023-02-09] MEDS: ipratropium-albuterol 3 mL Neb INHALATION ×5 (04:53→21:05)
[2023-02-09 05:00] LABS: ABG PCO2 47.6 mmHg (35-45); ABG PH Result 7.32 (7.35-7.45); Arterial Blood Gas Hematocrit 53.7 % (42-52); Base Excess ABG -1.9 mmol/L (-2.0-2.0); Blood Gas Operator Identificat JB; Blood Gas Sample Site Brachial, right; Blood Gas Sample Type Arterial; HCO3 ABG 24.7 mmol/L (22-26); Oxygen Device VENT; PO2 ABG 90.6 mmHg (80.0-100.0)
[2023-02-09 05:00] LABS: Troponin 5 2HR 66.24 ng/L (0-15)
[2023-02-09 05:01] LABS: Blood Gas Tidal Volume 0.45
[2023-02-09 05:01] LABS: Troponin 5 2HR Delta -10.76 ABS# (0-10)
[2023-02-09 05:02] LABS: Lactic Sepsis W/Reflex 3.1 mmol/L (0.5-2.2)
[2023-02-09 05:16] LABS: Chol HDL Ratio 6.04 mg/dL (1.0-5.00); Cholesterol 163 mg/dL (0-200); Creatine Phosphokinase 118 U/L (39-308); HDL Cholesterol 27 mg/dL (60-100); NT Pro B Type Natriuretic Pept 36 pg/mL (0-125); Thyroid Stimulating Hormone 3.24 uIU/mL (0.27-4.20); Triglycerides 662 mg/dL (0-150)
[2023-02-09 05:17] LABS: HIV 1 & 2 Antibody Non-Reactive (Non-Reactiv); HIV 1 & 2 Antigen Non-Reactive (Non-Reactiv)
[2023-02-09 05:22] LABS: Hepatitis A Antibody IgM Non-Reactive (Nonreactive); Hepatitis B Core IgM Non-Reactive (Nonreactive); Hepatitis B Surface Antigen Non-Reactive (Nonreactive); Hepatitis C Virus Antibody Non-Reactive (Nonreactive)
[2023-02-09 05:34] LABS: LDL Cholesterol Direct 77 mg/dL (0-100)
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
[2023-02-09 06:25] LABS: Reflex Lactate Order REFLEX LACTIC ORDERD
--- NOTE | 2023-02-09 07:40 | PC.PHAR ---
unable to verify medications due to pt being intubated-no meds pull up on ext med history
--- NOTE | 2023-02-09 08:00 | XRR_ITS ---
PROCEDURE INFORMATION: Exam: XR Chest Exam date and time: 02/09/2023 7:04 AM Age: 32 years old Clinical indication: Condition or disease; Lung condition and disease; Pneumothorax; Additional info: Pneumonia TECHNIQUE: Imaging protocol: Radiologic exam of the chest. Views: 1 view. COMPARISON: CR (CHEST, ) 02/09/2023 6:05 AM FINDINGS: Tubes, catheters and devices: ET and NG tube are unchanged and in satisfactory position. Lungs: There is diffuse airspace disease with fluffy bilateral perihilar alveolar opacities and more dense consolidation right lower lobe, unchanged. Minimal right lower lobe pneumothorax evident along the right heart border and right hemidiaphragm slightly more apparent but probably unchanged. Pleural spaces: No significant pleural effusions. Heart/Mediastinum: Unremarkable. No cardiomegaly. Bones/joints: Unremarkable for age. XR/XR chest 1V portable [id number] IMPRESSION: 1. Diffuse airspace disease most pronounced right lower lobe, unchanged. 2. Minimal right pneumothorax, stable.
[2023-02-09 08:56] LABS: Alanine Aminotransferase 114 U/L (0-41); Albumin Level 2.9 g/dL (3.5-5.2); Alkaline Phosphatase 49 U/L (40-130); Anion Gap 15.4 (5-19); Aspartate Amino Transferase 110 U/L (0-40); Blood Urea Nitrogen 17 mg/dL (6-20); Calcium 7.4 mg/dL (8.5-10.5); Carbon Dioxide 22 mmol/L (22-29); Chloride 105 mmol/L (98-107); Glomerular Filtration Rate 64.8 mL/min (90-130); Glucose 121 mg/dL (65-115); Magnesium 1.3 mg/dL (1.7-2.3); Osmolality Calculated 289 mOsm/kg (285-295); Phosphorus 2.1 mg/dL (2.5-4.5); Potassium 4.4 mmol/L (3.5-5.1); Sodium 138 mmol/L (136-145); Total Bilirubin 0.3 mg/dL (0.15-1.2); Total Protein 4.9 g/dL (6.6-8.7)
[2023-02-09 08:57] LABS: Troponin 5 6HR 29.96 ng/L (0-15)
[2023-02-09 09:10] LABS: Creatinine Clr Calc Pharmacy 97.0487
--- NOTE | 2023-02-09 09:41 | PC.NURSE ---
weaned off fentynl gtt at this time per doctor Datar order increase diprivan to 50 mcg for sedation
[2023-02-09] MEDS: magnesium sulfate premix 2 GM/50 ML PIGGYBACK IV (11:18)
[2023-02-09] MEDS: dexmedetomidine 400 MCG in sodium chloride 0.9% (100 ml) 100 ML IV (12:53)
--- NOTE | 2023-02-09 12:59 | PC.NURSE ---
grandmother here gave her silvertone ring off right index finger as it was swelling , getting stuck
[2023-02-09] MEDS: propofol 1,000 MG/100 ML INJ 19.6 MG IV (13:09)
--- NOTE | 2023-02-09 14:06 | P.PN_ITS ---
Subjective Subjective: He is resting, eyes closed, wakes up with minimal stimulation. Follows directions to squeeze both hands. Vitals/I&O/Wt Last Vital Signs Temp 99.4 F 02/09/23 09:45 Pulse 98 02/09/23 13:00 Resp 16 02/09/23 12:00 BP 91/58 02/09/23 13:00 Pulse Ox 96 02/09/23 13:00 O2 Del Method Mechanical Ventilation 02/09/23 11:20 FiO2 50 02/09/23 12:00 02/08/23 02/09/23 02/09/23 22:59 06:59 14:59 Intake Total 2436.034 / 2436.034 361.422 / 361.422 Output Total 700 / 700 Balance 1736.034 / 1736.034 361.422 / 361.422 Weight last 48 hrs Weight 83.149 kg Weight 81.647 kg Physical Exam Const: GENERAL APPEARANCE: cooperative and patient mechanically ventilated HENMT: COMMON NORMALS: oropharynx normal Neck/C-Spine: COMMON NORMALS: no JVD Resp: COMMON NORMALS: normal respiratory effort AUSCULTATION: rhonchi and other (Coarse ) Cardio: COMMON NORMALS: no JVD, regular rhythm, S1 normal heart sound present, S2 normal heart sound present and No murmurs present (Cardio) RHYTHM: regular rhythm HEART SOUNDS: S1 normal heart sound present and S2 normal heart sound present GI: COMMON NORMALS: Normal to inspection, nondistended, normoactive bowel sounds present, Soft to palpation and non-tender PALPATION: Yes Soft to palpation Extremity: COMMON NORMALS: no joint enlargement and no pedal edema Neuro: COMMON NORMALS: moves all extremities Skin: COMMON NORMALS: no rashes or lesions noted GENERAL SKIN EXAM: no rashes or lesions noted Urinary Catheter Management: Arias: Cath Placed During This Visit: yes Reason for Continuing Indwelling Catheter: Accurate Measurement of Urinary Output in Critically Ill Patients Urinary Catheter Date of Insertion: 02/08/23 Urinary Catheter Time of Insertion: 23:33 Data 02/09/23 02:30 02/09/23 08:26 Micro: Microbiology 02/08/23 00:40 Blood Culture - Preliminary Blood SPECIMEN COLLECTED 02/08/23 00:13 Blood Culture - Preliminary Blood SPECIMEN COLLECTED A&P Assessment and plan (1) Aspiration pneumonia: (2) Shock liver: (3) Acute renal failure: (4) Acute respiratory failure with hypoxia: (5) Pneumonia: (6) Respiratory failure: (7) Drug overdose: (8) NSTEMI (non-ST elevated myocardial infarction): (9) Hypothermia: (10) Metabolic acidosis: (11) Hyperkalemia: Plan Acute hypoxic respiratory failure Multifocal pneumonia, possibly aspiration Continue Zosyn, vancomycin Oxygenation noted gradually improving, oxygen requirement decreasing, down to 50% FiO2 currently. Sedation adjusted, fentanyl was discontinued earlier in anticipation of hopefully recovery within the next day or 2. Basal layer of top urine in Arias bag. Triglycerides 662. Taper down propofol. Precedex per protocol added. Follow-up triglyceride level. Continue wean down vent support. Breathing trial in the morning. Requiring Levophed, up to 6 mcg/min. -DuoNeb -Budesonide Respiratory viral panel requested. Follow-up sputum culture. Obtain MRSA PCR. Drug overdose Possible overdose or other adverse effect, however, unclear. UDS reviewed, positive for benzodiazepine, marijuana. Pinpoint pupils reported when he was found. Requiring hemodynamic support, Levophed at 6 mcg/min. Continue supportive care. Subsequently monitor for withdrawal. -History of fentanyl abuse -History of polysubstance abuse, substance abuse, recently at rehab in [place] Aspiration pneumonia -Had roughly 800 cc of stool output from orogastric tube? No signs of obstruction on CT. Abdomen nondistended, nontender on exam. Continue to monitor intake and output. Right pneumothorax -Small along the right heart border -No hemodynamic instability, received 100% FiO2 Appreciate pulmonology recommendations. Continue expectant management, follow- up pneumothorax. Requesting repeat chest x-ray RBC elevation: Possibly degree of hemoconcentration. Does appear to have h istory of elevated hemoglobin. Receiving gentle hydration. He is also a smoker. Follow-up CBC requested. Consider follow-up with hematology after discharge. Shock liver Repeat CMP obtained, improving transaminases. Acute renal failure, CPK noted normal. Hemodynamic support as above with press or. Gentle IV hydration Non-ST elevation IN, likely type II, from acute respiratory failure, drug overdose, serial EKGs serial troponins telemetry monitoring Neurologic, can follow commands on sedation, able to squeeze my fingers, continue to monitor mentation closely Hypomagnesemia: Supplement, recheck Hypophosphatemia: Follow-up level Hypertriglyceridemia: We will benefit from treatment, follow-up. Discussed with hardware sales assistant. Current documentation reviewed. Attestations Medical Necessity Statement*: Continue for assessment management of respiratory failure after possible drug overdose, aspiration pneumonia, right pneumothorax, multiorgan injury with KADE, shock liver, demand cardiac ischemia. Coding Level of Care Code Critical Care >/= 30 minutes Critical care time (in minutes): 40 The high probability of a clinically significant, sudden or life threatening deterioration, as referenced in this documentation, required my full and direct attention, intervention and personal management. The critical care time shown is in addition to time spent performing any reported separately billable procedures and includes the following: [x] Data and vital sign review and interpretation [x ] Patient assessment, examination and intervention [x] Medication orders and management [x] Patient/Family updates as able [x] Care Coordination and D ocumentation. Diagnoses Aspiration pneumonia J69.0 Shock liver K72.00 Acute renal failure N17.9 Acute respiratory failure with hypoxia J96.01 Pneumonia J18.9 Respiratory failure J96.90 Drug overdose T50.901A NSTEMI (non-ST elevated myocardial infarction) I21.4 Hypothermia T68.XXXA Metabolic acidosis E87.20 Hyperkalemia E87.5
[2023-02-09] MEDS: vancomycin 1,250 MG/250 ML PIGGYBACK 200 MG IV (15:59)
[2023-02-09 16:25] LABS: Adenovirus Not Detected (NOT DETECT); Chlamydia Pneumoniae Not Detected (NOT DETECT); Coronavirus 229E,HKU1,NL63,OC4 Not Detected (NOT DETECT); Human Metapneumovirus Not Detected (NOT DETECT); Human Rhinovirus/Enterovirus Not Detected (NOT DETECT); Influenza A Not Detected (NOT DETECT); Influenza A H1 Not Detected (NOT DETECT); Influenza A H1-2009 Not Detected (NOT DETECT); Influenza A H3 Not Detected (NOT DETECT); Influenza B Not Detected (NOT DETECT); Mycoplasma Pneumoniae Not Detected (NOT DETECT); Parainfluenza Virus Type 1 Not Detected (NOT DETECT); Parainfluenza Virus Type 2 Not Detected (NOT DETECT); Parainfluenza Virus Type 3 Not Detected (NOT DETECT); Parainfluenza Virus Type 4 Not Detected (NOT DETECT); Respiratory Syncytial Virus A Not Detected (NOT DETECT); Respiratory Syncytial Virus B Not Detected (NOT DETECT); SARS-COV-2 Not Detected (NOT DETECT)
[2023-02-09] MEDS: budesonide 0.5 mg/2 mL Neb INHALATION (21:05)
[2023-02-10] VITALS (66 sets, daily range): BP systolic 95–129; BP diastolic 40–65; PULSE 80–100; RESP 12–33; TEMP 37; O2SAT 89–100
[2023-02-10] MEDS: ipratropium-albuterol 3 mL Neb INHALATION ×6 (00:28→23:18)
[2023-02-10] MEDS: propofol 1,000 MG/100 ML INJ 24.49 MG IV ×2 (01:01→04:46)
[2023-02-10] MEDS: piperacillin-tazobactam 3.375 GM in sodium chloride 0.9% (plus) 50 ML IV ×3 (01:09→18:25)
[2023-02-10] MEDS: pantoprazole 40 mg SDV IVP (04:04)
[2023-02-10] MEDS: enoxaparin 40 mg/0.4 mL Syringe SUBCUT (04:04)
[2023-02-10] MEDS: vancomycin 1,250 MG/250 ML PIGGYBACK 250 MG IV (04:04)
[2023-02-10 04:50] LABS: Basophils % 0.4 %; Eosinophils # 0.3 10^3/uL (0.0-0.8); Eosinophils % 2.6 %; Hematocrit 40.5 % (42.0-52.0); Hemoglobin 13.4 g/dL (11.7-16.6); Lymphocytes # 1.5 10^3/uL (0.8-4.8); Lymphocytes % 14.8 %; Mean Corpuscular HGB Conc 33.1 g/dL (30.0-36.0); Mean Corpuscular Hemoglobin 31.9 pg (28.0-34.0); Mean Corpuscular Volume 96.4 fl (80-94); Mean Platelet Volume 10.6 fL (7.4-10.4); Monocytes # 0.6 10^3/uL (0.2-0.9); Monocytes % 5.4 %; Neutrophils # 7.97 10^3/uL (1.8-7.7); Neutrophils % 76.5 %; Nucleated Red Blood Cells % 0 %; Platelet Count 144 10^3/cmm (130-400); Red Cell Distribution Width 13.2 % (12.1-15.1); White Blood Count 10.4 10^3/uL (4.0-10.0)
[2023-02-10 05:14] LABS: Anion Gap 11.9 (5-19); Blood Urea Nitrogen 14 mg/dL (6-20); Calcium 7.6 mg/dL (8.5-10.5); Carbon Dioxide 25 mmol/L (22-29); Chloride 104 mmol/L (98-107); Glomerular Filtration Rate 71.1 mL/min (90-130); Glucose 112 mg/dL (65-115); Osmolality Calculated 285 mOsm/kg (285-295); Phosphorus 2.2 mg/dL (2.5-4.5); Potassium 3.9 mmol/L (3.5-5.1); Sodium 137 mmol/L (136-145); Triglycerides 294 mg/dL (0-150)
[2023-02-10] MEDS: sodium chloride 0.9% 1,000 ML 75 ML IV (05:40)
--- NOTE | 2023-02-10 06:00 | XRR_ITS ---
PROCEDURE INFORMATION: Exam: XR Chest Exam date and time: 02/10/2023 5:21 AM Age: 32 years old Clinical indication: Device placement; Ett placement (vent status); Additional info: Hypoxia, ptx TECHNIQUE: Imaging protocol: Radiologic exam of the chest. Views: 1 view. COMPARISON: CR XR chest 1V portable [id number] 02/09/2023 7:04 AM FINDINGS: Tubes, catheters and devices: Life support tubes with unremarkable position. Lungs: Patchy lung opacities greatest in right lower lung zone are mildly decreased from comparison. Pleural spaces: Unremarkable. No pleural effusion. No pneumothorax. Heart/Mediastinum: Unremarkable. No cardiomegaly. Bones/joints: Unremarkable. XR/XR chest 1V portable [id number] IMPRESSION: Mildly improved pulmonary disease.
[2023-02-10] MEDS: norepinephrine 8 MG in dextrose 5 % 500 ML 38.1 MG IV (07:09)
[2023-02-10] MEDS: propofol 1,000 MG/100 ML INJ 19.6 MG IV (07:54)
[2023-02-10] MEDS: budesonide 0.5 mg/2 mL Neb INHALATION ×2 (08:10→19:50)
[2023-02-10] MEDS: dexmedetomidine 400 MCG in sodium chloride 0.9% (100 ml) 100 ML IV (09:00)
--- NOTE | 2023-02-10 09:06 | PC.NURSE ---
weaning levophed as blood pressure tolerated and weaning diprivan gtt to assist in weaning vent at this time... on cpap awaiting for extubation
[2023-02-10 09:24] LABS: ABG PCO2 41.4 mmHg (35-45); Alveolar-Arterial Oxygen Gradi 10.1 mmHg (5-10); Arterial Blood Gas Hematocrit 41.5 % (42-52); Base Excess ABG 0.9 mmol/L (-2.0-2.0); Blood Gas Allen Test Pos; Blood Gas Operator Identificat MONRO; Blood Gas Sample Site Radial, right; Blood Gas Sample Type Arterial; Carboxyhemoglobin 1.3 %THgb (0.4-20.1); HCO3 ABG 25.8 mmol/L (22-26); Ionized Calcium Level - ABG 1.1 mmol/L (1.1-1.4); Methemoglobin 0.3 % (0.4-1.5); Oxygen Device VENT; Oxygen Saturation ABG 97.5; Potassium Level - ABG 3.7 mmol/L (3.5-5.0); Total Hemoglobin 13.5 g/dL (14-18)
--- NOTE | 2023-02-10 09:29 | P.PN_ITS ---
Subjective Subjective: No overnight events Taper down sedation-patient following commands Tolerated pressure support ventilation-ABG acceptable improvement of congestion on his chest x-ray y Successfully extubated to 3 L nasal cannula Patient able to communicate postextubation and cannot recollect what happened exactly exactly prior to this event. Denied taking any medications/drugs. With history of previous suicide attempts-psychiatry having been consulted Medications: Reviewed: Yes Vitals/I&O/Wt Last Vital Signs Temp 98.8 F 02/09/23 19:00 Pulse 90 02/10/23 08:15 Resp 17 02/10/23 08:26 BP 110/64 02/10/23 08:15 Pulse Ox 95 02/10/23 08:26 O2 Del Method Mechanical Ventilation 02/10/23 08:00 FiO2 30 02/10/23 08:26 02/09/23 02/10/23 02/10/23 22:59 06:59 14:59 Intake Total 1637.480 / 8209.945 1057.481 / 3603.383 489.000 / 489.000 Output Total 600 / 600 800 / 1400 Balance 1037.480 / 1398.902 804.481 / 2203.383 489.000 / 489.000 Weight last 48 hrs Weight 183 lb 5 oz Weight 180 lb Physical Exam Narrative: PHYSICAL EXAM: General: lying in bed, sedated and intubated. HEENT:NCAT, PERRLA, EOMI Neck: Supple Lungs: Bilateral diffuse crackles associated with some wheezing Heart: s1/s2, RRR Abd: soft, NT, ND, BS + Normoactive Extremities: No edema TEA BLENDER: sedated and limited TEA BLENDER exam possible. SKIN: no rash Urinary Catheter Management: Arias: Cath Placed During This Visit: yes Reason for Continuing Indwelling Catheter: Accurate Measurement of Urinary Output in Critically Ill Patients Urinary Catheter Date of Insertion: 02/08/23 Urinary Catheter Time of Insertion: 23:33 Data 02/10/23 04:00 02/10/23 04:00 Other Labs: Radiology Impressions Head CT 02/08/23 22:58 IMPRESSION: Right sylvian fissure subtle hyperdensity likely reflects a vessel, subarachnoid hemorrhage is felt unlikely, series 3, image 18, please correlate clinically, consideration to short-term follow-up exam can be given. Cervical Spine CT 02/09/23 00:21 IMPRESSION: 1. Negative for fracture or dislocation. 2. Equivocal trace anterior right upper lobe pneumothorax, series 5, image 109, chest CT could further characterize this. Chest/Abdomen/Pelvis CT 02/09/23 00:21 IMPRESSION: 1. There is a small right pneumothorax. 2. Bilateral pulmonary opacities with consolidations in the lower lobes. Findings may be secondary to edema, hemorrhage or pneumonia. 3. The examination is limited by patient motion. 4. Support tubes and lines are in good position. IMPRESSION: No acute disease. ADDENDUM: 02/09/23 0148 THIS REPORT CONTAINS FINDINGS THAT MAY BE CRITICAL TO PATIENT CARE. The findings were verbally communicated by me to LELAND RINALDI via telephone conference at 1:46 AM CDT on 02/09/2023. The findings were acknowledged and understood. Chest X-Ray 02/10/23 06:00 IMPRESSION: Mildly improved pulmonary disease. Laboratory Results WBC 10.4 10^3/uL (4.0-10.0) H 02/10/23 04:00 Corrected WBC Cancelled 02/09/23 00:13 RBC 4.20 10^6/uL (4.1-5.3) 02/10/23 04:00 Hgb 13.4 g/dL (11.7-16.6) D 02/10/23 04:00 Hct 40.5 % (42.0-52.0) L 02/10/23 04:00 MCV 96.4 fl (80-94) H 02/10/23 04:00 MCH 31.9 pg (28.0-34.0) 02/10/23 04:00 MCHC 33.1 g/dL (30.0-36.0) 02/10/23 04:00 RDW 13.2 % (12.1-15.1) 02/10/23 04:00 Plt Count 144 10^3/cmm (130-400) 02/10/23 04:00 MPV 10.6 fL (7.4-10.4) H 02/10/23 04:00 Gran % Cancelled 02/09/23 00:13 Neut % (Auto) 76.5 % 02/10/23 04:00 Lymph % (Auto) 14.8 % 02/10/23 04:00 [place] % (Auto) 5.4 % 02/10/23 04:00 Eos % (Auto) 2.6 % 02/10/23 04:00 Baso % (Auto) 0.4 % 02/10/23 04:00 Neut # (Auto) 7.97 10^3/uL (1.8-7.7) H 02/10/23 04:00 Lymph # (Auto) 1.5 10^3/uL (0.8-4.8) 02/10/23 04:00 [place] # (Auto) 0.6 10^3/uL (0.2-0.9) 02/10/23 04:00 Eos # (Auto) 0.3 10^3/uL (0.0-0.8) 02/10/23 04:00 Baso # (Auto) 0.0 10^3/uL (0.0-0.1) 02/10/23 04:00 Absolute Gran (auto) Cancelled 02/09/23 00:13 Nucleated RBC % (auto) 0 % 02/10/23 04:00 Nucleated RBCs # 0.0 /100WBC 02/10/23 04:00 Specimen Type Arterial 02/10/23 09:11 Sample Site Radial, right 02/10/23 09:11 ABG pH 7.40 (7.35-7.45) 02/10/23 09:11 ABG pCO2 41.4 mmHg (35-45) 02/10/23 09:11 ABG pO2 85.0 mmHg (80.0-100.0) 02/10/23 09:11 ABG HCO3 25.8 mmol/L (22-26) 02/10/23 09:11 ABG O2 Saturation 97.5 02/10/23 09:11 ABG Base Excess 0.9 mmol/L (-2.0-2.0) 02/10/23 09:11 Greg Test Pos 02/10/23 09:11 A-a O2 Gradient 10.1 mmHg (5-10) H 02/10/23 09:11 Hematocrit 41.5 % (42-52) L 02/10/23 09:11 Hgb O2 Saturation 96.0 % (95-100) 02/10/23 09:11 Carboxyhemoglobin 1.3 %THgb (0.4-20.1) 02/10/23 09:11 Methemoglobin 0.3 % (0.4-1.5) L 02/10/23 09:11 Total Hemoglobin 13.5 g/dL (14-18) L 02/10/23 09:11 Sodium 137.0 mmol/L (131-143) 02/10/23 09:11 Potassium 3.7 mmol/L (3.5-5.0) 02/10/23 09:11 Glucose 100.0 mg/dL (70-115) 02/10/23 09:11 Ionized Calcium 1.1 mmol/L (1.1-1.4) 02/10/23 09:11 O2 Delivery Device Vent 02/10/23 09:11 FiO2 30.0 % 02/10/23 09:11 Tidal Volume 0.45 02/09/23 04:46 PEEP 5.0 cmH20 02/10/23 09:11 Agency Appointments Supervisor ID [place] 02/10/23 09:11 Sodium 137 mmol/L (136-145) 02/10/23 04:00 Potassium 3.9 mmol/L (3.5-5.1) 02/10/23 04:00 Chloride 104 mmol/L (98-107) 02/10/23 04:00 Carbon Dioxide 25 mmol/L (22-29) 02/10/23 04:00 Anion Gap 11.9 (5-19) 02/10/23 04:00 BUN 14 mg/dL (6-20) 02/10/23 04:00 Creatinine 1.2 mg/dL (0.7-1.2) 02/10/23 04:00 GFR Calculation 71.1 mL/min (90-130) L 02/10/23 04:00 Glucose 112 mg/dL (65-115) 02/10/23 04:00 Estimat Average Glucose 88 02/09/23 04:25 Hemoglobin A1c 4.7 % (4.0-6.0) 02/09/23 04:25 Calculated Osmolality 285 mOsm/kg (285-295) 02/10/23 04:00 Lactic Acid 3.1 mmol/L (0.5-2.2) H 02/09/23 04:25 Lactic Acid (Sepsis) 3.0 mmol/L (0.5-2.2) H 02/09/23 08:26 Lactate 3.0 mmol/L (0.5-2.2) H 02/09/23 02:30 Calcium 7.6 mg/dL (8.5-10.5) L 02/10/23 04:00 Phosphorus 2.2 mg/dL (2.5-4.5) L 02/10/23 04:00 Magnesium 2.0 mg/dL (1.7-2.3) 02/10/23 04:00 Total Bilirubin 0.3 mg/dL (0.15-1.2) 02/09/23 08:26 AST 110 U/L (0-40) H 02/09/23 08:26 ALT 114 U/L (0-41) H 02/09/23 08:26 Alkaline Phosphatase 49 U/L (40-130) 02/09/23 08:26 Creatine Kinase 118 U/L (39-308) 02/09/23 04:25 Troponin T Baseline 77 ng/L (0-15) H 02/09/23 02:30 Troponin T 120 Minute 66.24 ng/L (0-15) H 02/09/23 04:25 Delta Troponin T -10.76 ABS# (0-10) L 02/09/23 04:25 Troponin T Hi Sens 6Hr 29.96 ng/L (0-15) H 02/09/23 08:26 Troponin T Hi Sens 6Hr Delta -47.04 ng/L (0-12) L 02/09/23 08:26 NT-Pro-B Natriuret Pep 36 pg/mL (0-125) 02/09/23 04:25 Total Protein 4.9 g/dL (6.6-8.7) L D 02/09/23 08:26 Albumin 2.9 g/dL (3.5-5.2) L 02/09/23 08:26 Globulin 2.0 g/dL (1.3-4.6) 02/09/23 08:26 Triglycerides 294 mg/dL (0-150) H 02/10/23 04:00 Cholesterol 163 mg/dL (0-200) 02/09/23 04:25 LDL Cholesterol Direct 77 mg/dL (0-100) 02/09/23 04:25 LDL Cholesterol, Calc Not Reportable 02/09/23 04:25 HDL Cholesterol 27 mg/dL (60-100) L 02/09/23 04:25 LDL/HDL Ratio Not Reportable 02/09/23 04:25 Cholesterol/HDL Ratio 6.04 mg/dL (1.0-5.00) H 02/09/23 04:25 TSH 3.24 uIU/mL (0.27-4.20) 02/09/23 04:25 Urine Color Yellow (Yellow) 02/08/23 23:18 Urine Appearance Sl hazy (CLEAR) A 02/08/23 23:18 Urine pH 5 (5-7) 02/08/23 23:18 Ur Specific [place] 1.030 (1.005-1.030) 02/08/23 23:18 Urine Protein 2+ (Negative) H 02/08/23 23:18 Urine Glucose (UA) 4+ (Normal) H 02/08/23 23:18 Urine Ketones Negative (Negative) 02/08/23 23:18 Urine Blood 3+ (Negative) H 02/08/23 23:18 Urine Nitrate Negative (Negative) 02/08/23 23:18 Urine Bilirubin Neg (Negative) 02/08/23 23:18 Urine Urobilinogen Neg mg/dL (Negative) 02/08/23 23:18 Ur Leukocyte Esterase 1+ (Negative) H 02/08/23 23:18 Urine RBC 15-25 /hpf (0-2) H 02/08/23 23:18 Urine WBC 15-25 /hpf (0-5) H 02/08/23 23:18 Ur Squamous Epith Cells 0-4 /hpf (0-5) H 02/08/23 23:18 Amorphous Sediment Not Reportable 02/08/23 23:18 Urine Bacteria 1+ /hpf (NONE) H 02/08/23 23:18 Nasal Influ A H1 2008 PCR Not detected (NOT DETECT) 02/09/23 14:25 Salicylates < 0.3 mg/dL (3-10) L 02/09/23 00:13 Urine Opiates Screen Negative ng/mL (Negative) 02/08/23 23:18 Acetaminophen < 5.0 ug/mL (10-30) L 02/09/23 00:13 Ur Barbiturates Screen Negative ng/mL (Negative) 02/08/23 23:18 Ur Phencyclidine Scrn Negative ng/mL (Negative) 02/08/23 23:18 Ur Amphetamines Screen Negative ng/mL (Negative) 02/08/23 23:18 U Benzodiazepines Scrn Positive ng/mL (Negative) H 02/08/23 23:18 Urine Cocaine Screen Negative ng/mL (Negative) 02/08/23 23:18 U Marijuana (THC) Screen Positive ng/mL (Negative) H 02/08/23 23:18 Ethyl Alcohol < 10 mg/dL (0-10) 02/09/23 00:13 Adenovirus (PCR) Not detected (NOT DETECT) 02/09/23 14:25 C. pneumoniae DNA (PCR) Not detected (NOT DETECT) 02/09/23 14:25 Coronavirus 229E (PCR) Not detected (NOT DETECT) 02/09/23 14:25 Hepatitis A IgM Ab Non-reactive (Nonreactive) 02/09/23 04:25 Hep Bs Antigen Non-reactive (Nonreactive) 02/09/23 04:25 Hep B Core IgM Ab Non-reactive (Nonreactive) 02/09/23 04:25 Hepatitis C Antibody Non-reactive (Nonreactive) 02/09/23 04:25 HIV 1&2 Ab & HIV 1 Ag Non-reactive (Non-Reactiv) 02/09/23 04:25 HIV 1&2 Antibody Non-reactive (Non-Reactiv) 02/09/23 04:25 Human Metapneumovir PCR Not detected (NOT DETECT) 02/09/23 14:25 Influenza A (H1) PCR Not detected (NOT DETECT) 02/09/23 14:25 Influenza A (H3) PCR Not detected (NOT DETECT) 02/09/23 14:25 Influenza Type A (PCR) Not detected (NOT DETECT) 02/09/23 14:25 Influenza Type B (PCR) Not detected (NOT DETECT) 02/09/23 14:25 M. pneumoniae (PCR) Not detected (NOT DETECT) 02/09/23 14:25 Parainfluenza 1 (PCR) Not detected (NOT DETECT) 02/09/23 14:25 Parainfluenza 2 (PCR) Not detected (NOT DETECT) 02/09/23 14:25 Parainfluenza 3 (PCR) Not detected (NOT DETECT) 02/09/23 14:25 Parainfluenza 4 (PCR) Not detected (NOT DETECT) 02/09/23 14:25 RSV Type A (PCR) Not detected (NOT DETECT) 02/09/23 14:25 RSV Type B (PCR) Not detected (NOT DETECT) 02/09/23 14:25 Entero/Rhino (PCR) Not detected (NOT DETECT) 02/09/23 14:25 SARS-CoV-2 (PCR) Not detected (NOT DETECT) 02/09/23 14:25 Micro: Microbiology 02/08/23 00:40 Blood Culture - Preliminary Blood NEGATIVE TO DATE 02/08/23 00:13 Blood Culture - Preliminary Blood NEGATIVE TO DATE A&P Assessment and plan (1) Metabolic acidosis: (2) NSTEMI (non-ST elevated myocardial infarction): (3) Acute respiratory failure with hypoxia: (4) Acute renal failure: (5) Aspiration pneumonia: (6) Drug overdose: (7) Respiratory failure: (8) Hypomagnesemia: (9) Septic shock: Plan Mr. Tu Koehler is a 32-year-old male with no significant past medical history- history of polysubstance use admitted for acute hypoxic respiratory failure likely secondary to aspiration pneumonia requiring mechanical ventilation. #Unresponsive at home -CT head on arrival showed right sylvian fissure subtle hyperdensity likely reflects a vessel, subarachnoid hemorrhage is unlikely.-Will monitor clinically and if patient has difficulty awakening after tapering down sedation then will obtain repeat CT chest -Family reported patient was down for 10 minutes before EMS arrived and he received Narcan- however U tox negative for opiates -Other possibility aspiration pneumonia causing hypoxia; and negative pulmonary edema he is gastric output was 800 cc as per admitting note --Today following commands on minimal sedation -Successfully extubated-he needs to sit out of bed to chair #Hypoxic respiratory failure secondary to aspiration pneumonia -On minimal vent settings, following commands, chest x-ray improved congestion- extubated successfully to 3 L nasal cannula -Once FiO2 is down to 40%-we will start awakening trial and breathing trials -CT shows diffuse pulmonary infiltrates-suspected aspiration versus noncardiogenic pulmonary edema -Send for respiratory viral panel, including COVID-19, MRSA nares-negative; sputum cultures pending -Discontinue vancomycin and continue Zosyn until final cultures available -Scheduled DuoNeb and Pulmicort nebulization as there is some diffuse wheezing on examination #Shock-hypovolemic versus sepsis -Currently on Levophed 3 mcg/hour and IV fluids -Currently covered with antibiotics -Blood cultures and sputum cultures are pending -We will obtain echocardiogram to assess LV function given his hypotension #Elevated troponins, elevated liver enzymes, KADE, metabolic acidosis due to lactic acidosis, hyperkalemia-I will secondary to hypotension -Repeat labs show improvement -Monitor renal functions and liver enzymes -Monitor urine output #Hypomagnesemia -Supplement and monitor ICU CHECKLIST: Problem list updated Verbal orders reviewed and signed Code Status: Full code Disposition: ICU Critically ill: Yes MD discussed with: Hospitalist, RN, RT taking care of the patient Analgesia: N/A Glycemic Control: N/A Nutrition: Start clear liquids after bedside swallow eval and advance as tolerated Restraint Renewal (within 24 hrs): N/A Ulcer Prophylaxis: PPI Chemical Thromboprophylaxis: Prophylaxis: Lovenox Mechanical Thromboprophylaxis: SCDs Need for Arias catheter: N/A Critical Care Time (No Overlap): 63 min Attestations Medical Necessity Statement*: Patient successfully extubated Can be transferred to floor Time Spent in Patient Care: Greater than 35 minutes (>than 50% of time spent in counselling and/or direct pt care on unit) . Critical Care Time: Critical Care Time (No Overlap): 63 min This patient has a high probability of clinically significant, sudden or life threatening deterioration of the patient's (neurological, pulmonary, cardiac, renal) systems required my full, direct attention, the highest level of physician preparedness for urgent intervention and personal management. I managed/supervised life or organ supporting interventions that required frequent physician assessment. I devoted my full attention in the ICU to the direct care of this patient for the period of time indicated above. Time I spent with family or surrogate(s) is included only if the patient was incapable of providing necessary information or participating in decision making. This time includes the following services provided: Telemetry review Mechanical Ventilation Hemodynamic interpretation, assessment and management Review and interpretation of CXR Review and interpretation of lab values Review and interpretation of microbiologic data and culture results Review of medications and administration Review and interpretation of Nutrition requirements and management Discussion of management with other consultants and services Clinical update to family members [x] Data and vital sign review and interpretation [x] Patient assessment, examination and intervention [x] Documentation [x] Medication orders and management Time spent for teaching as well as performing procedures are billed separately and is not included in this note Coding Level of Care Code Critical Care >/= 30 minutes Diagnoses Metabolic acidosis E87.20 NSTEMI (non-ST elevated myocardial infarction) I21.4 Acute respiratory failure with hypoxia J96.01 Acute renal failure N17.9 Aspiration pneumonia J69.0 Drug overdose T50.901A Respiratory failure J96.90 Hypomagnesemia E83.42 Septic shock A41.9; R65.21 Time Spent (min) 63
--- NOTE | 2023-02-10 11:00 | PC.NURSE ---
transfered to icu 4 after extubation for SI and one on one sitter family and pt aware at this time ...
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
--- NOTE | 2023-02-10 11:40 | PC.NURSE ---
family anxious and upset wanting to have family member stay in room with him at all times explained 1to 1 and doctor coming to see and decide also upset that we had called Tu.... his name is brianne . apologized to family
--- NOTE | 2023-02-10 11:54 | CTR_ITS ---
PROCEDURE INFORMATION: Exam: CT Head Without Contrast Exam date and time: 02/10/2023 4:10 PM Age: 32 years old Clinical indication: Pain; Headache not specified; Additional info: Follow up R sylvian fissure to reassess for any, hemorrhage TECHNIQUE: Imaging protocol: Computed tomography of the head without contrast. Radiation optimization: All CT scans at this facility use at least one of these dose optimization techniques: automated exposure control; mA and/or kV adjustment per patient size (includes targeted exams where dose is matched to clinical indication); or iterative reconstruction. REPORTING DATA: Count of CT and Cardiac NM exams in prior 12 months: This patient has received 3 known CTs and 0 known cardiac nuclear medicine studies in the 12 months prior to the current study. COMPARISON: CT head wo con* [id number] 02/09/2023 1:15 AM RADIATION DOSE METRICS: Total DLP (mGy-cm): 1131.38 FINDINGS: Brain: Previously noted linear shaped density rights sylvian fissure is no longer demonstrated and may have been artifactual. No evidence of intracranial hemorrhage. No areas of mass effect edema or midline shift. Cortical sulci are unremarkable for age. Cerebral ventricles: Unremarkable for age. Paranasal sinuses: Mild mucosal thickening resulting and partial opacification of the paranasal sinuses. Mastoid air cells: Visualized mastoid air cells are well aerated. Bones/joints: Unremarkable. No acute fracture. Soft tissues: Unremarkable. CT/CT head wo con* [id number] IMPRESSION: 1. Unremarkable CT examination of the head. 2. Mild paranasal sinusitis.
--- NOTE | 2023-02-10 12:15 | PC.NURSE ---
Dr Bennett, talked with pt and family aware of 96 hold and rule of visitation and ect .. in icu 4 with one on one sitter
[2023-02-10 15:12] LABS: Vancomycin Trough 6.2 ug/mL (10-15)
[2023-02-10] MEDS: FUROsemide 10 mg/mL SDV 2mL 20 MG IVP (15:54)
[2023-02-10] MEDS: nicotine 21 mg Patch 1 PATCH TRANSDERMA (15:57)
[2023-02-10] MEDS: vancomycin 1,000 MG in sodium chloride 0.9% 250 ML 250 MG IV ×2 (16:23→23:34)
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
--- NOTE | 2023-02-10 17:53 | PC.NURSE ---
96 hour rights reviewed with patient @1315. All questions answered. Patient verbalized understanding, and just asked for something for nicotine withdrawls. Copy of rights left at bedside with patient.
--- NOTE | 2023-02-10 20:14 | PC.NURSE ---
Addendum entered by Kenyetta Swain RN 02/10/23 20:18: Propofol removed from pt room and wasted by dayshift. Original Note: Propofol stopped on dayshift prior to extubation, exact time unknown. MAR changed for 1900, beginning of shift, to reflect that Propofol is off.
[2023-02-10] MEDS: acetaminophen 325 mg Tablet 650 MG PO (20:46)
--- NOTE | 2023-02-10 20:54 | ECG_ITS ---
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 Measurements Intervals [place] Rate: 94 P: 31 MI: 161 QRS: 65 QRSD: 95 T: 15 QT: 326 QTc: 409 Interpretive Statements SINUS RHYTHM NONSPECIFIC T-WAVE ABNORMALITY INTERPRETATION BASED ON A DEFAULT AGE OF 40 YEARS Compared to ECG 02/09/2023 03:35:51 T-wave abnormality now present Sinus tachycardia no longer present Electronically Signed On 02-11-2023 9:47:46 CDT by Leoncio Little M.D. [id number] f
--- NOTE | 2023-02-10 21:03 | PC.NURSE ---
Chest Pain: Pt reported chest pain 7/10, not radiating to shoulder or jaw. EKG obtained and placed in chart. Dr. Celaya messaged @[phone], no new orders a this time. See MAR for medications given.
[2023-02-10] MEDS: nicotine 2 mg Gum BUCCAL (21:20)
[2023-02-11] VITALS (18 sets, daily range): BP systolic 96–145; BP diastolic 59–80; PULSE 75–100; RESP 16–30; TEMP 36.6–38.3; O2SAT 88–98; BMI 22.4
[2023-02-11] MEDS: piperacillin-tazobactam 3.375 GM in sodium chloride 0.9% (plus) 50 ML IV ×2 (02:48→09:12)
[2023-02-11] MEDS: pantoprazole 40 mg SDV IVP (02:49)
[2023-02-11] MEDS: acetaminophen 325 mg Tablet 650 MG PO (03:01)
[2023-02-11] MEDS: ipratropium-albuterol 3 mL Neb INHALATION (03:09)
[2023-02-11 05:27] LABS: Basophils % 0.2 %; Eosinophils # 0.2 10^3/uL (0.0-0.8); Eosinophils % 2.7 %; Hematocrit 40.9 % (42.0-52.0); Hemoglobin 13.8 g/dL (11.7-16.6); Lymphocytes # 1.1 10^3/uL (0.8-4.8); Lymphocytes % 12.4 %; Mean Corpuscular HGB Conc 33.7 g/dL (30.0-36.0); Mean Corpuscular Hemoglobin 31.9 pg (28.0-34.0); Mean Corpuscular Volume 94.7 fl (80-94); Mean Platelet Volume 10.2 fL (7.4-10.4); Monocytes # 0.4 10^3/uL (0.2-0.9); Monocytes % 4.9 %; Neutrophils # 7.05 10^3/uL (1.8-7.7); Nucleated Red Blood Cells % 0 %; Platelet Count 151 10^3/cmm (130-400); Red Blood Count 4.32 10^6/uL (4.1-5.3); Red Cell Distribution Width 12.6 % (12.1-15.1); White Blood Count 8.9 10^3/uL (4.0-10.0)
--- NOTE | 2023-02-11 06:00 | USCV_ITS ---
Tu Koehler Age: 32 Gender: M : 1990 Exam Date: 02/10/2023 16:36 Ordering Phys: Zachariah Webb MD Technologist: SHI [place] [facility] [place]ication: lv function BP: / HR: 91 Rhythm: Sinus Technical Quality: Adequate MEASUREMENTS (Male / Female) Normal Values 2D ECHO LV Diastolic Diameter PLAX 5.6 cm 4.2 - 5.9 / 3.9 - 5.3 cm LV Systolic Diameter PLAX 3.6 cm IVS Diastolic Thickness 0.7 cm 0.6 - 1.0 / 0.6 - 0.9 cm IVS Systolic Thickness 0.9 cm LVPW Diastolic Thickness 0.7 cm 0.6 - 1.0 / 0.6 - 0.9 cm LVPW Systolic Thickness 1.0 cm LVOT Diameter 2.2 cm LV Ejection Fraction 2D Teich 64.2 % LV Ejection Fraction MOD 2C 56.2 % LV Ejection Fraction 2C AL 56.6 % LA Diameter 3.6 cm IVC Diameter 2.3 cm M-MODE Aortic Annulus Diameter 2.8 cm LA Ao Ratio MM 1.3 MV E Point Septal Separation 0.3 cm DOPPLER AV Peak Velocity 131.0 cm/s LVOT Peak Velocity 111.0 cm/s AV Area Cont Eq vti 3.3 cm squared AV Area Cont Eq pk 3.2 cm squared MV Area PHT 2.9 cm squared Mitral E to A Ratio 1.1 MV E' Velocity 51.5 cm/s Mitral E to MV E' Ratio 7.4 Mitral E to LV E' Lateral Ratio 8.3 Mitral E to LV E' Septal Ratio 6.7 TR Peak Velocity 262.7 cm/s TR Peak Gradient 27.6 mmHg TV Peak E Velocity 62.0 cm/s Right Atrial Pressure 3.0 mmHg Pulmonary Artery Systolic Pressu 30.6 mmHg PV Peak Velocity 99.0 cm/s FINDINGS Left Ventricle Normal left ventricular size, systolic function and wall thickness, with no regional wall motion abnormalities. Normal left ventricular wall thickness. Normal diastolic filling pattern. Left ventricular ejection fraction is estimated at 60 %. Right Ventricle The right ventricle is normal in size and function. Normal right ventricular systolic pressure. Right Atrium The right atrium is normal in size. Left Atrium The left atrium is normal in size. Mitral Valve Structurally normal mitral valve without significant stenosis or prolapse. There is no mitral regurgitation. Aortic Valve Structurally normal aortic valve without significant sclerosis or stenosis. There is no aortic regurgitation. Tricuspid Valve Structurally normal tricuspid valve without significant stenosis or regurgitation. Pulmonary artery systolic pressure is normal. Pulmonic Valve Structurally normal pulmonic valve without significant stenosis. Trace pulmonary valve regurgitation. Pericardium Normal pericardium without effusion. Aorta Normal ascending aorta dimension. IVC The inferior vena cava appears normal. CONCLUSIONS Normal transthoracic echocardiogram. There are no prior echocardiogram studies to compare. Dr. Leoncio Little MD (Electronically Signed) Final Date: 11 February 2023 09:28 S
[2023-02-11 06:16] LABS: Lactate (Lactic Acid level) 1.3 mmol/L (0.5-2.2)
[2023-02-11 07:39] LABS: Alanine Aminotransferase 52 U/L (0-41); Albumin Level 3.2 g/dL (3.5-5.2); Alkaline Phosphatase 70 U/L (40-130); Anion Gap 10.2 (5-19); Aspartate Amino Transferase 39 U/L (0-40); Blood Urea Nitrogen 10 mg/dL (6-20); Calcium 8.4 mg/dL (8.5-10.5); Carbon Dioxide 23 mmol/L (22-29); Chloride 99 mmol/L (98-107); Globulin 2.6 g/dL (1.3-4.6); Glomerular Filtration Rate 87.7 mL/min (90-130); Glucose 92 mg/dL (65-115); Magnesium 1.8 mg/dL (1.7-2.3); Osmolality Calculated 267 mOsm/kg (285-295); Potassium 3.2 mmol/L (3.5-5.1); Sodium 129 mmol/L (136-145); Total Bilirubin 1.3 mg/dL (0.15-1.2); Total Protein 5.8 g/dL (6.6-8.7); Triglycerides 319 mg/dL (0-150)
[2023-02-11] MEDS: vancomycin 1,000 MG in sodium chloride 0.9% 250 ML 250 MG IV (07:41)
[2023-02-11] MEDS: potassium chloride ER 20 mEq Tablet 40 MEQ PO (09:11)
[2023-02-11] MEDS: nicotine 21 mg Patch 1 PATCH TRANSDERMA (09:11)
--- NOTE | 2023-02-11 09:54 | W.PM.NPUPNS ---
Subjective NPU Subjective: Patient presented today still in his ICU unit and seeming more cooperative with this information writer. We once again discussed the plan which included going to the neuropsychiatric unit and being on a 96-hour hold while the explore appropriate treatment moving forward. We discussed his likely aspiration pneumonia as another sequela of his overdose and likely aspiration leading to intubation. He did not try to find the reality of the hold or admission to [facility]. Mental Status Exam MSE Comments: This is a well-nourished well-developed white male in hospital gown with limited grooming and adequate eye contact. Multiple tattoos noted on exposed skin. No abnormal movements except for psychomotor retardation. Slightly more cooperative with exam in mild distress. Speech was decreased rate and volume. Mood described as fine affect more calm. Thought process organized. Thought content: Patient denied suicidal or homicidal ideation, there were no delusions reported or noted, he denied any auditory or visual hallucinations. Attention and concentration appeared intact and memory was often unreliable but likely intentionally so but no more formally tested. He is alert and oriented x3. Insight, judgment and impulse control are impaired. Vitals/I&O/Wt Last Vital Signs Temp 99.9 F H 02/11/23 08:00 Pulse 100 02/11/23 08:00 Resp 20 H 02/11/23 08:00 BP 111/73 02/11/23 08:00 Pulse Ox 93 02/11/23 08:00 O2 Del Method Nasal Cannula 02/11/23 08:00 O2 Flow Rate 1 02/11/23 08:00 FiO2 30 02/10/23 16:00 02/10/23 02/11/23 02/11/23 22:59 06:59 14:59 Intake Total 2000.879 / 2667.953 250 / 2917.953 300 / 300 Output Total 3250 / 3250 750 / 4000 Balance -1248.121 / -582.047 -500 / -1082.047 300 / 300 Physical Exam Urinary Catheter Management: Arias: Cath Placed During This Visit: yes, but has since been removed by the nurse Reason for Continuing Indwelling Catheter: Does Not Meet Criteria Urinary Catheter Date of Insertion: 02/08/23 Urinary Catheter Time of Insertion: 23:33 Date Urinary Catheter Removed: 02/10/23 Time Urinary Catheter Discontinued: 20:19 Data NPU 02/11/23 05:02 02/11/23 05:02 Micro: Microbiology 02/08/23 23:18 Urine Culture - Final Urine,Clean Catch 02/09/23 11:00 Gram Stain - Final Sputum - Endotracheal Tube Aspirate Sputum Culture - Preliminary 02/09/23 14:25 MRSA Culture - Final Nose Microbiology 02/08/23 23:18 Urine,Clean Catch Urine Culture - Final 02/09/23 11:00 Sputum - Endotracheal Tube Aspirate Gram Stain - Final 02/09/23 11:00 Sputum - Endotracheal Tube Aspirate Sputum Culture - Preliminary 02/09/23 14:25 Nose MRSA Culture - Final A&P Assessment and plan (1) Metabolic acidosis: (2) Hypothermia: (3) Hyperkalemia: (4) Hypomagnesemia: (5) Septic shock: (6) Acute renal failure: (7) Opioid use disorder, severe, dependence: (8) Self-harming behavior: (9) Suicide attempt by drug overdose: (10) Depression: (11) Partner relational problem: (12) Parent-child relational problem: Plan This is a 32-year-old white male with a history of opioid dependence, multiple mental health inpatient stays with limited outpatient mental health services and intermittent addiction services who presents with recent multiple overdoses needing intervention with the most recent 1 leading to needing CPR and intubation. 1. Continue current medications.? Consider possible medications once patient is possibly more forthcoming with issues related to his mental health more so than his addiction. 2. Encouraged individual , group, and milieu therapy once he reaches the unit. 3. Start every 15 minute checks for safety. 4. Recommend sober living treatment at the highest level of care to which the patient is willing to commit. In his case inpatient would seem to be the most appropriate level. 5. Explore whether methadone, Suboxone, Vivitrol or any other medication assisted treatments have been explored. 6. Transfer to neuropsychiatric unit when medically stable. Attestations NPU Medical Necessity Statement*: Inpatient hospitalization is medically necessary and the clinically appropriate intervention at this time. We will monitor/initiate medications and make changes as indicated. Likely length of stay 4-6 days. Coding Level of Care Code Acute Code for Chg Fwd Diagnoses Metabolic acidosis E87.20 Hypothermia T68.XXXA Hyperkalemia E87.5 Hypomagnesemia E83.42 Septic shock A41.9; R65.21 Acute renal failure N17.9 Opioid use disorder, severe, dependence F11.20 Self-harming behavior Suicide attempt by drug overdose T50.902A Depression F32.A Partner relational problem Z63.0 Parent-child relational problem Z62.820
[2023-02-11] MEDS: levoFLOXacin 750 mg Tablet PO (13:22)
--- NOTE | 2023-02-11 13:55 | PC.NURSE ---
mother called informed of transfer to npu ,report called iv out po antibiotic started
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
[2023-02-11] MEDS: amoxicillin-clav 875-125 mg Tablet 1 TAB PO (21:00)
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
[2023-02-12 06:00] VITALS: BP 147/80; PULSE 66; RESP 16; TEMP 36.8; O2SAT 94
--- NOTE | 2023-02-12 06:00 | XR_ITS ---
WS: [id number] Exam: XR chest 1V portable [id number] Date/Time of Exam: 02/12/2023 6:00 AM Reason For Exam: Hypoxia Comparison 02/10/2023. Previously noted pulmonary infiltrates have resolved. The lungs are clear and fully expanded. Normal cardiomediastinal silhouette. No pleural effusions are seen. Areas of plaque atelectasis in the lower lung zones. Regional bony elements appear normal. XR/XR chest 1V portable [id number] IMPRESSION: 1. Resolved right pulmonary infiltrates since previous exam. Residual bibasal p laque atelectasis.
[2023-02-12 09:02] LABS: Basophils % 0.3 %; Eosinophils # 0.3 10^3/uL (0.0-0.8); Eosinophils % 4.1 %; Hematocrit 40.8 % (42.0-52.0); Hemoglobin 14.5 g/dL (11.7-16.6); Lymphocytes # 1.3 10^3/uL (0.8-4.8); Mean Corpuscular HGB Conc 35.5 g/dL (30.0-36.0); Mean Corpuscular Hemoglobin 32.2 pg (28.0-34.0); Mean Corpuscular Volume 90.5 fl (80-94); Monocytes # 0.7 10^3/uL (0.2-0.9); Monocytes % 8.9 %; Neutrophils # 5.57 10^3/uL (1.8-7.7); Neutrophils % 69.7 %; Nucleated Red Blood Cells % 0 %; Platelet Count 174 10^3/cmm (130-400); Red Blood Count 4.51 10^6/uL (4.1-5.3); Red Cell Distribution Width 12.3 % (12.1-15.1)
[2023-02-12 09:19] LABS: Phosphorus 1.2 mg/dL (2.5-4.5)
[2023-02-12] MEDS: amoxicillin-clav 875-125 mg Tablet 1 TAB PO ×2 (09:19→20:42)
[2023-02-12 09:20] LABS: Alanine Aminotransferase 44 U/L (0-41); Albumin Level 3.5 g/dL (3.5-5.2); Alkaline Phosphatase 67 U/L (40-130); Anion Gap 15.6 (5-19); Aspartate Amino Transferase 33 U/L (0-40); Blood Urea Nitrogen 15 mg/dL (6-20); Calcium 8.7 mg/dL (8.5-10.5); Carbon Dioxide 21 mmol/L (22-29); Chloride 102 mmol/L (98-107); Globulin 3.1 g/dL (1.3-4.6); Glomerular Filtration Rate 87.7 mL/min (90-130); Glucose 82 mg/dL (65-115); Osmolality Calculated 280 mOsm/kg (285-295); Potassium 3.6 mmol/L (3.5-5.1); Sodium 135 mmol/L (136-145); Total Bilirubin 0.9 mg/dL (0.15-1.2); Total Protein 6.6 g/dL (6.6-8.7)
[2023-02-12] MEDS: levoFLOXacin 750 mg Tablet PO (13:33)
[2023-02-12 14:00] VITALS: BP 113/80; PULSE 70; RESP 16; TEMP 36.6; O2SAT 96
[2023-02-12] MEDS: nicotine 2 mg Gum BUCCAL (14:09)
--- NOTE | 2023-02-12 14:12 | W.PM.NPUPNS ---
Subjective NPU Subjective: Patient presented today in the same ambivalent space that he was with his initial evaluation. He continues to downplay the need for any kind of treatment reporting that his plan is to go home and just make sure that he avoids his mother and spends time with his daughter and ex-girlfriend that he is trying to rekindle with, get a job and he believes that that will take care of the opiate addiction that is had him needing Narcan, CPR and revival multiple times in the last 4 to 6 weeks. Mental Status Exam MSE Comments: This is a well-nourished well-developed white male in hospital gown with limited grooming and adequate eye contact. Multiple tattoos noted on exposed skin. No abnormal movements. Slightly more cooperative with exam in mild distress. Speech was more normal rate and volume. Mood described as fine affect more calm. Thought process organized. Thought content: Patient denied suicidal or homicidal ideation, there were no delusions reported or noted, he denied any auditory or visual hallucinations. Attention and concentration appeared intact and memory was often unreliable but likely intentionally so but none were formally tested. He is alert and oriented x3. Insight, judgment and impulse control are impaired. Vitals/I&O/Wt Last Vital Signs Temp 98 F 02/12/23 14:00 Pulse 70 02/12/23 14:00 Resp 16 02/12/23 14:00 BP 113/80 02/12/23 14:00 Pulse Ox 96 02/12/23 14:00 O2 Del Method Room Air 02/12/23 14:00 O2 Flow Rate 1 02/11/23 08:00 FiO2 30 02/11/23 12:00 02/11/23 02/12/23 02/12/23 22:59 06:59 14:59 Intake Total 394.251 / 694.251 Output Total 1450 / 2150 Balance -1055.749 / -1455.749 Weight last 48 hrs Weight 79.379 kg Physical Exam Urinary Catheter Management: Arias: Cath Placed During This Visit: yes, but has since been removed by the nurse Reason for Continuing Indwelling Catheter: Does Not Meet Criteria Urinary Catheter Date of Insertion: 02/08/23 Urinary Catheter Time of Insertion: 23:33 Date Urinary Catheter Removed: 02/10/23 Time Urinary Catheter Discontinued: 20:19 Data NPU 02/12/23 08:43 02/12/23 08:43 Micro: Microbiology 02/09/23 11:00 Gram Stain - Final Sputum - Endotracheal Tube Aspirate Sputum Culture - Final 02/08/23 23:18 Urine Culture - Final Urine,Clean Catch Microbiology 02/09/23 11:00 Sputum - Endotracheal Tube Aspirate Gram Stain - Final 02/09/23 11:00 Sputum - Endotracheal Tube Aspirate Sputum Culture - Final 02/08/23 23:18 Urine,Clean Catch Urine Culture - Final A&P Assessment and plan (1) Metabolic acidosis: (2) Hypothermia: (3) Hyperkalemia: (4) Hypomagnesemia: (5) Septic shock: (6) Acute renal failure: (7) Opioid use disorder, severe, dependence: (8) Self-harming behavior: (9) Suicide attempt by drug overdose: (10) Depression: (11) Partner relational problem: (12) Parent-child relational problem: Plan This is a 32-year-old white male with a history of opioid dependence, multiple mental health inpatient stays with limited outpatient mental health services and intermittent addiction services who presents with recent multiple overdoses needing intervention with the most recent 1 leading to needing CPR and intubation. 1. Continue current medications.? Consider possible medications once patient is possibly more forthcoming with issues related to his mental health more so than his addiction. 2. Encouraged individual , group, and milieu therapy. 3. Continue every 15 minute checks for safety. 4. Recommend sober living treatment at the highest level of care to which the patient is willing to commit. In his case inpatient would seem to be the most appropriate level. 5. Explore whether methadone, Suboxone, Vivitrol or any other medication assisted treatments have been explored. 6. Maybe family meeting for his supports to impress upon him where they are it is needed for active treatment. Involuntary Hold Information 96 Hour Hold: 96 Hour Involuntary Admission: Yes 96 Hour Hold Ending Date: 02/16/23 96 Hour Hold Ending Time: 00:01 Attestations NPU Medical Necessity Statement*: Inpatient hospitalization is medically necessary and the clinically appropriate intervention at this time. We will monitor/initiate medications and make changes as indicated. Likely length of stay 3-5 days. Coding Level of Care Code Acute Code for g Fwd Diagnoses Metabolic acidosis E87.20 Hypothermia T68.XXXA Hyperkalemia E87.5 Hypomagnesemia E83.42 Septic shock A41.9; R65.21 Acute renal failure N17.9 Opioid use disorder, severe, dependence F11.20 Self-harming behavior Suicide attempt by drug overdose T50.902A Depression F32.A Partner relational problem Z63.0 Parent-child relational problem Z62.820
[2023-02-12] MEDS: potassium chloride ER 20 mEq Tablet 40 MEQ PO (15:58)
[2023-02-12] MEDS: phosphorus 250 mg Tablet PO (18:40)
[2023-02-12 20:41] VITALS: BP 117/76; PULSE 79; RESP 18; TEMP 36.7; O2SAT 97
[2023-02-12] MEDS: trazodone 50 mg Tablet PO ×2 (20:43→23:15)
[2023-02-13 06:00] VITALS: BP 113/73; PULSE 69; RESP 18; TEMP 36.8; O2SAT 95
[2023-02-13] MEDS: amoxicillin-clav 875-125 mg Tablet 1 TAB PO ×2 (08:52→20:28)
[2023-02-13] MEDS: phosphorus 250 mg Tablet PO ×2 (08:53→18:12)
[2023-02-13 09:14] LABS: Basophils % 0.4 %; Eosinophils # 0.4 10^3/uL (0.0-0.8); Eosinophils % 4.3 %; Hematocrit 43.8 % (42.0-52.0); Hemoglobin 15.2 g/dL (11.7-16.6); Lymphocytes # 1.9 10^3/uL (0.8-4.8); Lymphocytes % 20.9 %; Mean Corpuscular HGB Conc 34.7 g/dL (30.0-36.0); Mean Corpuscular Hemoglobin 31.5 pg (28.0-34.0); Mean Corpuscular Volume 90.9 fl (80-94); Mean Platelet Volume 9.7 fL (7.4-10.4); Monocytes # 0.7 10^3/uL (0.2-0.9); Neutrophils # 5.87 10^3/uL (1.8-7.7); Neutrophils % 65.8 %; Nucleated Red Blood Cells % 0 %; Platelet Count 204 10^3/cmm (130-400); Red Blood Count 4.82 10^6/uL (4.1-5.3); Red Cell Distribution Width 12.5 % (12.1-15.1); White Blood Count 8.9 10^3/uL (4.0-10.0)
[2023-02-13 09:29] LABS: Alanine Aminotransferase 47 U/L (0-41); Albumin Level 3.5 g/dL (3.5-5.2); Alkaline Phosphatase 63 U/L (40-130); Anion Gap 15.8 (5-19); Aspartate Amino Transferase 33 U/L (0-40); Blood Urea Nitrogen 18 mg/dL (6-20); Carbon Dioxide 23 mmol/L (22-29); Chloride 104 mmol/L (98-107); Glomerular Filtration Rate 87.7 mL/min (90-130); Glucose 104 mg/dL (65-115); Osmolality Calculated 290 mOsm/kg (285-295); Potassium 3.8 mmol/L (3.5-5.1); Sodium 139 mmol/L (136-145); Total Bilirubin 0.5 mg/dL (0.15-1.2); Total Protein 6.5 g/dL (6.6-8.7)
[2023-02-13] MEDS: levoFLOXacin 750 mg Tablet PO (12:30)
[2023-02-13 14:00] VITALS: BP 109/70; PULSE 80; RESP 18; TEMP 36.8; O2SAT 96
[2023-02-13] MEDS: nicotine 2 mg Gum BUCCAL ×2 (14:42→23:01)
--- NOTE | 2023-02-13 17:44 | W.PM.NPUPNS ---
Subjective NPU Subjective: Patient presents today for the first time talking reasonably about the possibility of inpatient rehab. He is working the treatment team on some of those options. There is a program that might take him on Suboxone in a tapering off. Though is unclear if that is practical given that he is not on it now. We had a long discussion about considering medication assisted recovery and Suboxone in particular. He was open to the treatment after discussion of the risks, benefits alternatives he understood the proceed as documented in this note. There is a concern we discussed about his date of last use and initiation of Suboxone in particular but also wondering if long-term Suboxone is better answer. Mental Status Exam MSE Comments: This is a well-nourished well-developed white male in hospital scrubs with improving grooming and adequate eye contact. Multiple tattoos noted on exposed skin. No abnormal movements. Slightly more cooperative with exam in no acute distress. Speech was more normal rate and volume. Mood described as fine, affect more calm. Thought process organized. Thought content: Patient denied suicidal or homicidal ideation, there were no delusions reported or noted, he denied any auditory or visual hallucinations. Attention and concentration appeared intact and memory was often unreliable but likely intentionally so but none were formally tested. He is alert and oriented x3. Insight and judgment are limited but improving and impulse control improving but impaired. Vitals/I&O/Wt Last Vital Signs Temp 98.2 F 02/13/23 19:57 Pulse 74 02/13/23 19:57 Resp 16 02/13/23 19:57 BP 117/70 02/13/23 19:57 Pulse Ox 97 02/13/23 19:57 O2 Del Method Room Air 02/13/23 19:57 O2 Flow Rate 1 02/11/23 08:00 FiO2 30 02/11/23 12:00 Physical Exam Urinary Catheter Management: Arias: Cath Placed During This Visit: yes, but has since been removed by the nurse Reason for Continuing Indwelling Catheter: Does Not Meet Criteria Urinary Catheter Date of Insertion: 02/08/23 Urinary Catheter Time of Insertion: 23:33 Date Urinary Catheter Removed: 02/10/23 Time Urinary Catheter Discontinued: 20:19 Data NPU 02/13/23 08:56 02/13/23 08:56 Micro: Microbiology 02/08/23 00:40 Blood Culture - Final Blood NO GROWTH AFTER 5 DAYS 02/08/23 00:13 Blood Culture - Final Blood NO GROWTH AFTER 5 DAYS Microbiology 02/08/23 00:40 Blood Blood Culture - Final NO GROWTH AFTER 5 DAYS 02/08/23 00:13 Blood Blood Culture - Final NO GROWTH AFTER 5 DAYS A&P Assessment and plan (1) Metabolic acidosis: (2) Hypothermia: (3) Hyperkalemia: (4) Hypomagnesemia: (5) Septic shock: (6) Acute renal failure: (7) Opioid use disorder, severe, dependence: (8) Self-harming behavior: (9) Suicide attempt by drug overdose: (10) Depression: (11) Partner relational problem: (12) Parent-child relational problem: Plan This is a 32-year-old white male with a history of opioid dependence, multiple mental health inpatient stays with limited outpatient mental health services and intermittent addiction services who presents with recent multiple overdoses needing intervention with the most recent 1 leading to needing CPR and intubation. 1. Continue current medications.? Consider possible medications once patient is possibly more forthcoming with issues related to his mental health more so than his addiction. 2. Encouraged individual , group, and milieu therapy. 3. Continue every 15 minute checks for safety. 4. Recommend sober living treatment at the highest level of care to which the patient is willing to commit. In his case inpatient would seem to be the most appropriate level. 5. Explore whether methadone, Suboxone, Vivitrol or any other medication assisted treatments have been explored. Possibly start Suboxone when we are appropriate days out from last use. 6. Maybe family meeting for his supports to impress upon him where they are it is needed for active treatment. Involuntary Hold Information 96 Hour Hold: 96 Hour Involuntary Admission: Yes 96 Hour Hold Ending Date: 02/16/23 96 Hour Hold Ending Time: 00:01 Attestations NPU Medical Necessity Statement*: Inpatient hospitalization is medically necessary and the clinically appropriate intervention at this time. We will monitor/initiate medications and make changes as indicated. Likely length of stay 2-4 days. Coding Level of Care Code Acute Code for g Fwd Diagnoses Metabolic acidosis E87.20 Hypothermia T68.XXXA Hyperkalemia E87.5 Hypomagnesemia E83.42 Septic shock A41.9; R65.21 Acute renal failure N17.9 Opioid use disorder, severe, dependence F11.20 Self-harming behavior Suicide attempt by drug overdose T50.902A Depression F32.A Partner relational problem Z63.0 Parent-child relational problem Z62.820
[2023-02-13 19:57] VITALS: BP 117/70; PULSE 74; RESP 16; TEMP 36.8; O2SAT 97
[2023-02-13] MEDS: trazodone 50 mg Tablet PO ×2 (20:29→23:02)
[2023-02-13] MEDS: hyDROXYzine 25 mg Capsule 50 MG PO (20:29)
[2023-02-14 06:00] VITALS: RESP 16
[2023-02-14] MEDS: amoxicillin-clav 875-125 mg Tablet 1 TAB PO (10:45)
[2023-02-14] MEDS: phosphorus 250 mg Tablet PO (10:46)
[2023-02-14] MEDS: levoFLOXacin 750 mg Tablet PO (12:17)
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
[2023-02-14 13:31] VITALS: BP 110/67; PULSE 82; RESP 16; TEMP 36.8; O2SAT 98
[2023-02-14 15:16] VITALS: BP 110/67; PULSE 82; RESP 16; TEMP 36.8; O2SAT 98
== END 2023-02-14 15:05 | disposition home or self-care (01) | DRG 917 ==
LOC: ER 02-09 00:36 → ICU 02-09 02:47 → NP 02-11 13:58
PROVIDERS: Internal Medicine; Internal Medicine Pulmonary Disease; Admitting Provider Family Medicine; Emergency Provider Emergency Medicine; PCP Family Medicine; Visit Provider Internal Medicine
DX: T42.4X1A Poisoning by benzodiazepines, accidental (unintentional), initial encounter (principal); G92.9 Unspecified toxic encephalopathy; I21.A1 Myocardial infarction type 2; K72.00 Acute and subacute hepatic failure without coma; J69.0 Pneumonitis due to inhalation of food and vomit; J96.01 Acute respiratory failure with hypoxia; N17.9 Acute kidney failure, unspecified; E87.20 Acidosis, unspecified; J93.9 Pneumothorax, unspecified; F11.20 Opioid dependence, uncomplicated; R68.0 Hypothermia, not associated with low environmental temperature; F17.200 Nicotine dependence, unspecified, uncomplicated; E87.5 Hyperkalemia; F12.90 Cannabis use, unspecified, uncomplicated; E83.42 Hypomagnesemia; E78.1 Pure hyperglyceridemia; F41.9 Anxiety disorder, unspecified; F32.A Depression, unspecified; Z81.8 Family history of other mental and behavioral disorders
CPT/HCPCS: 36415; 36600; 51702; 70450; 71045; 71260; 72125; 74177; 80048; 80051; 80053; 80061; 80074; 80202; 80306; 80307; 81001; 82330; 82550; 82803; 82805; 83036; 83605; 83721; 83735; 83880; 84100; 84443; 84478; 84484; 85025; 87040; 87070; 87086; 87205; 87486; 87581; 87633; 87641; 87806; 93005; 93306; 94002; 94003; 94640; 94799; 96365; 96366; 96367; 96372; 96376; 97150; 97165; 99291; 99292; C9113; J1650; J1940; J2543; J2704; J3010; J3370; J3475; J7030; J7050; J7060; J7626; Q9967

== ENCOUNTER 2023-04-02 02:00 | Emergency (ER) | payer SELFPAY ==
[2023-04-02 02:05] VITALS: PULSE 118; RESP 18; TEMP 37; O2SAT 96; BMI 21.2
[2023-04-02 02:09] VITALS: BP 113/81
[2023-04-02 02:12] VITALS: O2SAT 97
--- NOTE | 2023-04-02 02:21 | ED_ITS ---
HPI - Skin/Abscess/Foreign Bdy General: Chief complaint: Skin/Abscess/Foreign Body Stated complaint: Fishing Hook Stuck in Face Time Seen by Provider: 04/02/23 02:02 History of Present Illness: 32-year-old male patient comes in today with a fishing lower stuck in his right facial cheek. Patient reports his line got stuck in a tree and he was pulling on it to release it when it came back and stuck in his face. Patient appears nontoxic. Patient appears mild pain. Review of Systems General: Reports: 10 or more systems reviewed and unremarkable except in HPI and below Skin/Breast: Reports: new lesions [facility] ED PFSH: Medical History (Updated 04/02/23 @ 02:23 by YOKO Garcia) No pertinent past medical history Surgical History No pertinent past surgical history Family History Other No pertinent family history in first degree relatives Social History Smoking and tobacco status: current every day smoker Alcohol intake: never Substance/Drug Use: former Physical Exam Const: COMMON NORMALS: alert HENMT: COMMON NORMALS: normocephalic HEAD & SCALP: normocephalic FACE & SINUS IMAGES: 1. Impaled fishhook Neck/C-Spine: COMMON NORMALS: full ROM Resp: COMMON NORMALS: normal respiratory effort Cardio: COMMON NORMALS: regular rate and regular rhythm RATE: regular rate RHYTHM: regular rhythm Extremity: COMMON NORMALS: normal to inspection Neuro: SENSORIUM/ORIENTATION: Yes alert Skin: TRAUMA: puncture ([place] in the right facial cheek) Procedures Foreign Body Removal Site: right and face Description of foreign body: fish hook Sedation/Analgesia: other (Lidocaine 1% 3 mL) Technique: removal with forceps and incision made to facilitate removal Confirmed by:: direct visualization Complications: pain Post-procedure exam: awake, alert Course Vital Signs: Vital signs: Vital Signs Temperature 98.6 F 04/02/23 02:05 Pulse Rate 118 H 04/02/23 02:05 Respiratory Rate 18 04/02/23 02:05 Blood Pressure 113/81 04/02/23 02:09 Pulse Oximetry 97 04/02/23 02:12 Oxygen Delivery Me thod Room Air 04/02/23 02:12 MDM - Skin/Abscess/Foreign Bdy Medicial Decision Making 32-year-old male patient comes in today with fishhook in his right facial cheek. On exam we note a fishing mother with one of the barbs in the face. No signs of severe injury is noted. Patient appears nontoxic. Vital signs are normal. Differential diagnosis includes need for prophylaxis tetanus, puncture wound, foreign body. Under local anesthetic fishhook was removed. Patient was offered a tetanus shot but stated he had had 1 in the last 10 years and did not want one at this time. Reviewed postprocedure care and instructions with patient with recommendations for antibiotics as needed. Patient stated understanding and agreed to plan. Prescription in the pocket for Augmentin was provided. Discharge Plan Discharge Patient Disposition: Home Clinical Impression: Fish hook in cheek Condition: Stable Prescriptions: New amoxicillin-pot clavulanate 875-125 mg tablet 1 tab PO BID Qty: 14 0RF Discharge Orders: Discharge ED (Routine); Ordered 04/02/23 Ordered By: Leo Chandler Discharge Diet: Usual diet Discharge Activity: Increase activity as tolerated Patient Instructions: Puncture Wound (ED) Activity Restrictions/Additional Instructions: Clean wound with mild soap and water twice daily and apply antibiotic ointment. Monitor site for signs of infection such as increased swelling and redness. Take oral antibiotics if signs of infection develop. Follow-up with primary care as needed. Return to ED for new concerns. Coding Level of Care Code ED [facility]
[2023-04-02 02:27] VITALS: PULSE 109; RESP 18; O2SAT 97
--- NOTE | 2023-04-06 11:54 | DCPLANNER ---
recruiter manager called patient due to no primary care physician - no answer at this time.
== END 2023-04-02 02:27 | disposition home or self-care (01) ==
PROVIDERS: Emergency Provider Nurse Practitioner Family
DX: S01.441A Puncture wound with foreign body of right cheek and temporomandibular area, initial encounter (principal); W26.8XXA Contact with other sharp object(s), not elsewhere classified, initial encounter; F17.210 Nicotine dependence, cigarettes, uncomplicated
CPT/HCPCS: 10120; 99283

== ENCOUNTER 2023-10-29 19:16 | Emergency (ER) | payer BC, MEDICAID, SELFPAY ==
[2023-10-29 19:43] VITALS: PULSE 99; RESP 16; TEMP 36.6; O2SAT 98; BMI 21.2
--- NOTE | 2023-10-29 20:39 | ED_ITS ---
HPI - Extremity Problem General: Chief complaint: Extremity Injury, Upper Stated complaint: wants rings removed from right hand Time Seen by Provider: 10/29/23 19:31 History of Present Illness: 33-year-old male presents emergency depa rtment with complaints of having 2 rings stuck on his right hand. He states 1 ring on the right third digit has been on there for 3 to 4 months and has had intermittent swelling. He states the ring on the right fourth digit has been on there for 3 weeks and has had significant swelling intermittently. Patient states he initially attempted to go to an urgent care and then was advised to come to the emergency department as they were unable to utilize a ring cutter at the urgent care. Review of Systems General: Reports: 10 or more systems reviewed and unremarkable except in HPI and below Neuro: Reports: other (Right hand swelling) [facility] ED PFS: Medical History (Updated 10/29/23 @ 20:42 by Dhiraj Cohn MD) No pertinent past medical history Surgical History No pertinent past surgical history Family History Other No pertinent family history in first degree relatives Social History Smoking and tobacco/nicotine status: current every day tobacco/nicotine user Alcohol intake: never Substance/Drug Use: former Physical Exam Narrative: EXAM NARRATIVE: Constitutional: the patient appears well nourished and of normal development. Vital signs as documented. No acute distress at present. Alert and oriented-to person, place, time and situation. Head, eyes, ears, nose, mouth, throat: Normocephalic, atraumatic. Pupils-equal, round, reactive to light. No scleral icterus. Normal-appearing external ears. Normal appearing nasal turbinates, no drainage. No obvious oral lesions, posterior oropharynx without erythema or exudates. Neck: Supple, trachea is midline, no lymphadenopathy, no jugular venous distension, thyromegaly, or carotid bruits. Carotid upstrokes are brisk bilaterally. Lungs: clear to auscultation to all lung pappas. Symmetrical rise and fall of chest, no obvious signs of increased work of breathing at present. Cardiac: Regular rate and rhythm, positive S1, S2. No murmurs, rubs or gallops that I can appreciate Abdomen: Soft, non-tender to palpation, normal active bowel sounds to all quadrants. No palpable masses, no organomegaly and abdominal bruits. Extremities: 2+ pulses in the upper extremities that are equal bilaterally, 2+ pulses in the lower extremities that are equal bilaterally. Generalized edema to the right hand. Moves all extremities well, sensation to all extremities are noted. Skin: Warm, dry, intact. Course ED course: Ring cutter utilized to remove the ring off the right third digit without difficulty. I utilized the ring cutter again to partially cut through the patient's ring that was on his right middle finger and advised him that I needed to go change the blade of the ring automatic fabric cutter and that I would be back to discharge him after we removed the ring. The patient stated he would prefer to try to keep that ring as it was given to him by his daughter. I did provide him information regarding how to help remove the ring. Vital Signs: Vital signs: Vital Signs Temperature 97.8 F 10/29/23 19:43 Pulse Rate 99 10/29/23 19:43 Respiratory Rate 16 10/29/23 19:43 Pulse Oximetry 98 10/29/23 19:43 Oxygen Delivery Me thod Room Air 10/29/23 19:43 MDM - Extremity (Nontraumatic) Medical Decision Making Physical exam completed and documented, I will use a ring cutter to remove the ring from the patient's fingers Medical Records I reviewed the patient's medical records. 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
== END 2023-10-29 21:49 | disposition home or self-care (01) ==
PROVIDERS: Emergency Provider Internal Medicine
DX: R60.0 Localized edema (principal); Z72.0 Tobacco use
CPT/HCPCS: 99282

== ENCOUNTER 2024-01-17 22:30 | Emergency (ER) | payer BC, MEDICAID, SELFPAY ==
[2024-01-17 22:42] VITALS: BP 119/75; PULSE 122; RESP 18; TEMP 36.9; O2SAT 100
--- NOTE | 2024-01-17 23:13 | W.ED.MALEGU ---
HPI - Male Genitourinary General: Chief complaint: Urogenital-Male Stated complaint: Wont tell Me Time Seen by Provider: 01/17/24 22:52 History of Present Illness: 33-year-old male patient comes in today with a sore to the glans of his penis. Patient states that he had a small scabbed lesion approximately 1 week ago that came up to his penis. After couple days the scab fell off and the patient reported not really thinking much about it until the following day when he started getting increasing redness and soreness. Since then patient has developed a large area of a blister like lesion. Patient denies any new sexual partners. Patient denies having sex with men. Patient has had no other prior sores. Patient denies any previous sexual transmitted illnesses such as gonorrhea or chlamydia. Patient cannot recall any injury. Patient does shave in his genital regions. Patient is nontoxic. Patient appears in no pain. After further discussion patient did report a staph infection to his right hand about 1 month ago. Review of Systems General: Reports: 10 or more systems reviewed and unremarkable except in HPI and below Skin/Breast: Reports: new lesions PFSH ED PFSH: Medical History (Updated 01/17/24 @ 23:22 by YOKO Garcia) No pertinent past medical history Surgical History No pertinent past surgical history Family History Other No pertinent family history in first degree relatives Social History Smoking and tobacco/nicotine status: current every day tobacco/nicotine user Alcohol intake: never Substance/Drug Use: former Physical Exam Const: COMMON NORMALS: alert HENMT: COMMON NORMALS: normocephalic HEAD & SCALP: normocephalic Neck/C-Spine: COMMON NORMALS: full ROM Resp: COMMON NORMALS: normal respiratory effort Cardio: COMMON NORMALS: regular rate RATE: regular rate : PENIS: circumcised and other (Ruptured bulla) Back/Pelvis: COMMON NORMALS: thoracic and lumbar spine normal to inspection Extremity: COMMON NORMALS: full ROM Neuro: SENSORIUM/ORIENTATION: Yes alert Skin: COMMON NORMALS: turgor normal GENERAL SKIN EXAM: turgor normal Course Vital Signs: Vital signs: Vital Signs Temperature 98.5 F 01/17/24 22:42 Pulse Rate 122 H 01/17/24 22:42 Respiratory Rate 18 01/17/24 22:42 Blood Pressure 119/75 01/17/24 22:42 Pulse Oximetry 100 01/17/24 22:42 Oxygen Delivery Me thod Room Air 01/17/24 22:42 MDM - Male Medical Decision Making Patient comes in today for a lesion to the glans of his penis. Patient has an area dry crusted skin surrounded by a residual bulla. Approximately 2 cm to the glans of his penis. No significant redness is noted outside this area. Differential diagnosis includes but not limited to monkeypox, syphilis, erysipelas, impetigo, necrotizing fasciitis. No signs of severe illness is noted. Believe patient probably had a superficial injury to the tip of his penis and has developed some bullous impetigo or staph infection. Will go ahead and treat with doxycycline and mupirocin ointment. Patient reports understanding of care plan need for follow-up or return to the ER. No radiology studies performed this visit Discharge Plan Discharge Patient Disposition: Home Clinical Impression: Bullous staphylococcal impetigo Condition: Stable Prescriptions: New doxycycline hyclate 100 mg capsule 100 mg PO BID 10 Days Qty: 20 0RF mupirocin 2 % ointment 1 applic topical TID Qty: 22 0RF Discharge Orders: Discharge ED (Routine); Ordered 01/17/24 Ordered By: Leo Chandler Discharge Diet: Usual diet Discharge Activity: Increase activity as tolerated Patient Instructions: Impetigo (ED) Activity Restrictions/Additional Instructions: Use antibiotic ointment to the lesion 3 times a day until healed. If you develop any new lesions start the antibiotic ointment on those lesions also. Take oral doxycycline 100 mg twice a day for the next 10 days. You should notice improvement within the next 3 days. Follow-up with primary care for recheck in 1 week. Return to ED for worsening symptoms such as high fever, increasing redness and swelling, or new concerns. 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
[2024-01-17] MEDS: mupirocin oint 22 gm 1 APPLIC TOPICAL (23:36)
[2024-01-17] MEDS: doxycycline 100 mg Tablet PO (23:36)
[2024-01-17 23:42] VITALS: RESP 16
== END 2024-01-17 23:43 | disposition home or self-care (01) ==
PROVIDERS: Emergency Provider Nurse Practitioner Family
DX: L01.03 Bullous impetigo (principal); B95.8 Unspecified staphylococcus as the cause of diseases classified elsewhere; Z72.0 Tobacco use
CPT/HCPCS: 99283

== ENCOUNTER 2024-02-05 12:48 | Emergency (ER) | payer BC, MEDICAID, SELFPAY ==
[2024-02-05 12:54] VITALS: PULSE 106; RESP 24; O2SAT 89; BMI 23.1
--- NOTE | 2024-02-05 12:57 | ED_ITS ---
HPI - Overdose 2 General: Chief Complaint: Overdose Stated Complaint: Unresponsive Time Seen by Provider: 02/05/24 12:53 History of Present Illness: Patient brought in by car to triage where he was unresponsive. Took 3 nurses to get him back to the room 11. Patient was minimally responsive to sternal rub he had pinpoint pupils. We placed an IV gave him 2 mg of Narcan which admittedly awoken him and when awoke was alert and oriented and admitted to taking fentanyl. That he began immediately yelling he wanted to sign himself out and give him the AMA paperwork he is going to leave Review of Systems 2 General: Reports: 10 or more systems reviewed and unremarkable except in HPI and below PFSH ED 2 [facility]: Medical History (Updated 02/05/24 @ 13:09 by Bimal Rivera DO) No pertinent past medical history Surgical History No pertinent past surgical history Family History Other No pertinent family history in first degree relatives Social History Smoking and tobacco/nicotine status: current every day tobacco/nicotine user Alcohol intake: never Substance/Drug Use: former Physical Exam 2 Narrative: EXAM NARRATIVE: Responsive only to sternal rub upon arrival Eye: OTHER: Pinpoint pupils Neck/C-Spine: COMMON NORMALS: no JVD Chest: COMMONS NORMALS: normal inspection of the chest and normal palpation of entire chest wall Resp: COMMON NORMALS: normal respiratory effort, No retractions, No use of accessory muscles and clear to auscultation bilaterally AUSCULTATION: clear to auscultation bilaterally Cardio: COMMON NORMALS: no JVD, regular rate, regular rhythm, S1 normal heart sound present, S2 normal heart sound present, No gallops present (Cardio), No clicks present (Cardio), No murmurs present (Cardio) and No rub (Cardio) R ATE: regular rate RHYTHM: regular rhythm HEART SOUNDS: S1 normal heart sound present and S2 normal heart sound present GI: COMMON NORMALS: Normal to inspection, nondistended, normoactive bowel sounds present, Soft to palpation, non-tender, No hepatosplenomegaly present and no masses PALPATION: Yes Soft to palpation and Yes No hepatosplenomegaly present Course 2 Vital Signs: Vital signs: Vital Signs Temperature 98 F 02/05/24 13:03 Pulse Rate 106 H 02/05/24 12:54 Respiratory Rate 24 H 02/05/24 12:54 Blood Pressure 133/95 02/05/24 13:03 Pulse Oximetry 89 L 02/05/24 12:54 Oxygen Delivery Me thod Room Air 02/05/24 12:54 MDM - Overdose Medical Decision Making Patient brought was brought in unresponsive. He was given Narcan. He became alert oriented coherent and signed out AMA. He did admit to using fentanyl before arrival. Differential Diagnosis Likely drug overdose Lab Data I reviewed the patient's lab results. 02/05/24 12:50 02/05/24 12:50 No radiology studies performed this visit Discharge Plan Discharge Patient Disposition: Left Against Medical Advice Clinical Impression: Poisoning by opiate or related narcotic Condition: Stable Prescriptions: No Action Unable to Assess Patient Instructions: Against Medical Advice (ED) Coding Level of Care Code ED [employer] [facility]
[2024-02-05 13:02] LABS: Hematocrit 49.2 % (37-53); Mean Corpuscular HGB Conc 33.5 g/dL (30-55); Mean Corpuscular Hemoglobin 31.1 pg (27-33); Mean Corpuscular Volume 92.8 fl (82-101); Mean Platelet Volume 9.8 fL (7.4-10.4); Platelet Count 273 10^3/cmm (157-399); Red Cell Distribution Width 12.2 % (12.1-15.1); White Blood Count 15.56 10^3/uL (3.29-11.43)
[2024-02-05 13:03] VITALS: BP 133/95; TEMP 36.6
[2024-02-05 13:19] LABS: Alanine Aminotransferase 16 U/L (0-41); Albumin Level 4.1 g/dL (3.5-5.2); Alkaline Phosphatase 97 U/L (40-130); Anion Gap 13.2 (5-19); Aspartate Amino Transferase 16 U/L (0-40); Blood Urea Nitrogen 18 mg/dL (6-20); Calcium 9.1 mg/dL (8.5-10.5); Carbon Dioxide 30 mmol/L (22-29); Chloride 100 mmol/L (98-107); Creatinine Clr Calc Pharmacy 124.1068; Globulin 2.7 g/dL (1.3-4.6); Glomerular Filtration Rate 87.2 mL/min (90-130); Glucose 146 mg/dL (65-115); Osmolality Calculated 293 mOsm/kg (285-295); Potassium 4.2 mmol/L (3.5-5.1); Sodium 139 mmol/L (136-145); Total Bilirubin 0.2 mg/dL (0.15-1.2); Total Protein 6.8 g/dL (6.6-8.7)
--- NOTE | 2024-02-05 13:19 | PC.NURSE ---
PATIENT ARRIVED VIA POV WITH NO HEART RATE, NO BP, AND WAS NARCANNED. PATIENT ALERT AND ORIENTED AFTER, REQUESTING TO AMA. PATIENT VERBALIZED THAT HE WAS NOT INTENDING ON HURTING HIMSELF. PATIENT SIGNED FORM, PHYSICIAN SIGNED AMA FORM. PATIENT HEART RATE 100, 98% ROOM AIR, 133/95. BOTH PATIENT'S IVS REMOVED PRIOR TO PATIENT LEAVING AMA. WALKED PATIENT TO WAITING AREA UPON LEAVING.
[2024-02-05 13:21] VITALS: BP 133/95; PULSE 100; RESP 24; TEMP 36.6; O2SAT 98
[2024-02-05 13:24] LABS: Acetaminophen < 5.0 ug/mL (10-30); Alcohol Level < 10 mg/dL (0-10); Salicylate < 0.3 mg/dL (3-10)
[2024-02-05 13:28] LABS: Absolute Eosinophils 0.3 10^3/cmm (0.0-0.7); Absolute Neutrophil 5.4 10^3/cmm (1.4-6.5); Absolute Segmented Neutrophil 5.4 10/cmm (1.6-7.1); Eosinophils 2 %; Lymphocytes 44 %; Lymphocytes Absolute 9.3 10^3/cmm (1.2-3.4); Monocytes Absolute 0.5 10^3/cmm (0.1-0.6); Platelet Estimate Normal (Normal); Segmented Neutrophils 35 %; Slide Review Slide Review Perform; Total Cells Counted 100 (0-100)
== END 2024-02-05 13:23 | disposition left against medical advice (07) ==
PROVIDERS: Emergency Provider Emergency Medicine
DX: T40.2X1A Poisoning by other opioids, accidental (unintentional), initial encounter (principal); Z53.29 Procedure and treatment not carried out because of patient's decision for other reasons; Z72.0 Tobacco use
CPT/HCPCS: 80053; 80307; 85007; 85025; 96374; 99285; J2310

== ENCOUNTER 2024-04-24 21:06 | Inpatient (IN) | payer BC, MEDICAID, SELFPAY ==
[2024-04-24 21:07] VITALS: BP 116/77; PULSE 98; RESP 15; TEMP 36.6; O2SAT 98
--- NOTE | 2024-04-24 22:15 | W.ED.SKABFB ---
HPI - Skin/Abscess/Foreign Bdy General: Chief complaint: Skin/Abscess/Foreign Body Stated complaint: Left arm pain/weakness Time Seen by Provider: 04/24/24 22:00 COUNTS INCLUDE 234 BEDS AT THE [facility] ED PFSH: Medical History (Updated 02/13/24 @ 00:01 by NAHUN Orozco) No pertinent past medical history Surgical History No pertinent past surgical history Family History Other No pertinent family history in first degree relatives Social History Smoking and tobacco/nicotine status: current every day tobacco/nicotine user Alcohol intake: never Substance/Drug Use: former Course Vital Signs: Vital signs: Vital Signs Temperature 97.9 F 04/24/24 21:07 Pulse Rate 98 04/24/24 21:07 Respiratory Rate 15 04/24/24 21:07 Blood Pressure 116/77 04/24/24 21:07 Pulse Oximetry 98 04/24/24 21:07 Oxygen Delivery Me thod Room Air 04/24/24 21:07 Discharge Plan Discharge Condition: Stable Prescriptions: No Action Unable to Assess Referrals: Guy Razo, TEEN COUNSELOR-C [Primary Care Provider] - Coding Level of Care Code ED [employer]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
--- NOTE | 2024-04-24 22:23 | USCV_ITS ---
Tu Koehler Age: 34 Gender: M : 1990 Exam Date: 04/24/2024 23:19 Ordering Phys: Ita Messina Technologist: REN [place] [facility] [place]: IV drug abuser with painful, swollen LEFT arm. HISTORY: IV drug abuser with painful, swollen LEFT arm. PROCEDURES: Venous duplex imaging was performed in only the left upper extremity. The following venous structures were evaluated: internal jugular vein, subclavian vein, axillary vein, and brachial veins. In addition, the basilic vein, cephalic vein, radial vein, and ulnar vein. Serial compression, augmentation maneuvers, and spectral Doppler flow evaluation were performed, which were normal. All ov the above-named veins demonstrate good compressibility, phasicity, and augmenttion. No evidence of thrombus noted. In the LEFT antecubital space is a 4.0 x 1.5 x 2.8 cm mixed, echopenic lesion consistent with abscess. CONCLUSIONS Abscess Left antecubital measuring 4.0 x 1.5 x 2.8cm No evidence of thrombus of the left upper extremity veins. Van Dao MD (Electronically Signed) Final Date: 25 April 2024 10:30 S
--- NOTE | 2024-04-24 22:23 | CTR_ITS ---
PROCEDURE INFORMATION: Exam: CT Left Upper Extremity With Contrast, Elbow Exam date and time: 04/24/2024 10:38 PM Age: 34 years old Clinical indication: Patient HX: C/O left elbow pain with diffuse swelling and redness. ; Additional info: Iv drug use; Swelling/edema/erythema; Severe pain TECHNIQUE: Imaging protocol: Computed tomography of the left upper extremity with contrast. Exam focused on the elbow. Radiation optimization: All CT scans at this facility use at least one of these dose optimization techniques: automated exposure control; mA and/or kV adjustment per patient size (includes targeted exams where dose is matched to clinical indication); or iterative reconstruction. Contrast material: OMNI 350; Contrast volume: 100 ml; Contrast route: INTRAVENOUS (IV); COMPARISON: No relevant prior studies available. RADIATION DOSE METRICS: Total DLP (mGy-cm): 837.67 FINDINGS: Bones/joints: No evidence of fracture or subluxation. Radiocapitellar and ulnotrochlear articulations are intact. No evidence the region of the of joint effusion. Soft tissues: There is a complex 3 x 3 cm fluid collection in the volar subcutaneous soft tissues in the region of the antecubital fossa with edema edema/cellulitis. There are thrombosed superficial veins extending directly into the region of the collection suggestive of thrombophlebitis (for example, images 33 and 40 of series 12). There is also hypodensity within a branch of the brachial vein concerning for DVT (images 34-38 of series 13). Correlation with Doppler ultrasound is recommended. CT/CT elbow LT w con [id number] IMPRESSION: 1. Abscess in the region of the antecubital fossa. No evidence of joint involvement or acute osseous abnormality. 2. Hypodensity within a branch of the brachial vein concerning for DVT. Correlation with Doppler ultrasound is recommended. 3. Superficial thrombophlebitis in the region of the abscess.
--- NOTE | 2024-04-24 22:24 | ED_ITS ---
HPI - Extremity Problem 2 General: Chief complaint: Skin/Abscess/Foreign Body Stated complaint: Left arm pain/weakness Time Seen by Provider: 04/24/24 22:00 Source: patient Mode of arrival: ambulatory Limitations: no limitations History of Present Illness: Patient is a 34-year-old male who presents to ED today with a complaint of pain, swelling, redness, warmth surrounding his left elbow joint following a miss with IV drug use 2 days ago. He arrives with stable vital signs. He is not complaining of loss of sensation, numbness, or tingling however he does have significant discomfort. MD Complaint: extremity pain, extremity swelling, joint swelling and joint pain Onset (ago): day(s) (yesterday) Pain Consistency: constant Location: left and elbow Severity scale (1-10): >10 Radiation: none Relieving factors: nothing Exacerbating factors: range of motion and palpation Associated symptoms: Reports no associated symptoms; Deny chest pain or fever(s) Context: other (IV drug use) Review of Systems 2 Const: Denies: fever(s), chills, body aches, fatigue or malaise Card: Denies: chest pain Resp: Denies: dyspnea GI: Denies: nausea or vomiting Musc: Reports: extremity pain, extremity swelling, joint pain, joint swelling and joint redness Neuro: Denies: numbness in extremities, weakness in extremities or sensory changes PFSH ED 2 PFSH: Medical History (Updated 04/25/24 @ 00:13 by ROSE Oakley) No pertinent past medical history Surgical History No pertinent past surgical history Family History Other No pertinent family history in first degree relatives Social History Smoking and tobacco/nicotine status: current every day tobacco/nicotine user Alcohol intake: never Substance/Drug Use: former Physical Exam 2 Const: COMMON NORMALS: no acute distress, patient oriented x3, no limitations, alert and well nourished GENERAL APPEARANCE: cooperative O RIENTATION/CONSCIOUSNESS: Yes awake, Yes oriented to person, Yes oriented to place and Yes oriented to time Resp: COMMON NORMALS: normal respiratory effort and clear to auscultation bilaterally AUSCULTATION: clear to auscultation bilaterally Cardio: COMMON NORMALS: regular rate and regular rhythm RATE: regular rate RHYTHM: regular rhythm Extremity: COMMON NORMALS: capillary refill normal GENERAL: Yes normal exam except as noted LEFT UPPER EXTREMITY: Yes elbow joint (significant redness/warmth/edema to elbow) Left elbow: Yes ROM (limited secondary to pain/swelling) and Yes neurovascular exam (normal) OTHER: probable L AC deep abscess formation Neuro: COMMON NORMALS: patient oriented x3, moves all extremities, no focal motor deficits and no sensory deficits noted SENSORIUM/ORIENTATION: Yes alert, Yes oriented to person, Yes oriented to place and Yes oriented to time Course 2 Consultations: Consultation #1: Dr. Reynoso-recommends NPO at midnight and he will consult on patient and plan for OR Consultation #2: Dr. Alvarez-will accept admission Vital Signs: Vital signs: Vital Signs Temperature 97.9 F 04/24/24 21:07 Pulse Rate 100 04/24/24 23:06 Respiratory Rate 13 04/24/24 23:06 Blood Pressure 118/67 04/24/24 23:06 Pulse Oximetry 100 04/24/24 23:06 Oxygen Delivery Me thod Room Air 04/24/24 23:06 MDM - Extremity (Nontraumatic) Medical Decision Making Patient is a 34-year-old male here after he has subsequently developed infection/abscess in his antecubital fossa following IV drug use. He has significant redness, swelling, edema surrounding the elbow. Vital signs are stable. ESR 16. CRP 130. WBC 11.76. Blood cultures obtained and IV antibiotics initiated. There was question of DVT on patient's elbow CT. US currently in room scanning his arm. General surgery asked that anticoagulation be held due to planning for OR tomorrow. Hospitalist aware. Case ran by Dr. Rivera who agrees with care here in ED/plan for admission. Medical Records I reviewed the patient's medical records. Lab Data I reviewed the patient's lab results. 04/24/24 22:31 04/24/24 22:[address] 04/24/24 22:23 IMPRESSION: 1. Abscess in the region of the antecubital fossa. No evidence of joint involvement or acute osseous abnormality. 2. Hypodensity within a branch of the brachial vein concerning for DVT. Correlation with Doppler ultrasound is recommended. 3. Superficial thrombophlebitis in the region of the abscess. Laboratory Results WBC 11.76 10^3/uL (3.29-11.43) H 04/24/24 22: RBC 4.73 10^6/uL (3.85-5.65) 04/24/24 22:31 Hgb 14.80 g/dL (11.27-16.99) 04/24/24 22:31 Hct 43.8 % (37-53) 04/24/24 22:31 MCV 92.6 fl (82-101) 04/24/24 22: MCH 31.3 pg (27-33) 04/24/24 22: MCHC 33.8 g/dL (30-55) 04/24/24 22: RDW 12.2 % (12.1-15.1) 04/24/24 22:31 Plt Count 220 10^3/cmm (157-399) 04/24/24 22:31 MPV 10.0 fL (7.4-10.4) 04/24/24 22: Neut % (Auto) 75.3 % 04/24/24 22:31 Lymph % (Auto) 15.1 % 04/24/24 22: [place] % (Auto) 7.7 % 04/24/24 22: Eos % (Auto) 1.5 % 04/24/24 22: Baso % (Auto) 0.3 % 04/24/24 22: Neut # (Auto) 8.85 10^3/uL (1.8-7.7) H 04/24/24 22: Lymph # (Auto) 1.8 10^3/uL (0.8-4.8) 04/24/24 22:31 [place] # (Auto) 0.9 10^3/uL (0.2-0.9) 04/24/24 22: Eos # (Auto) 0.2 10^3/uL (0.0-0.8) 04/24/24 22: Baso # (Auto) 0.0 10^3/uL (0.0-0.1) 04/24/24 22:31 Nucleated RBC % (auto) 0 % 07/04/24 22:31 Nucleated RBCs # 0.0 /100WBC 04/24/24 22:31 ESR 16 mm/hr (0-10) H 04/24/24 22:31 Sodium 136 mmol/L (136-145) 04/24/24 22:31 Potassium 3.7 mmol/L (3.5-5.1) 04/24/24 22:31 Chloride 97 mmol/L (98-107) L 04/24/24 22:31 Carbon Dioxide 28 mmol/L (22-29) 04/24/24 22:31 Anion Gap 14.7 (5-19) 04/24/24 22:31 BUN 19 mg/dL (6-20) 04/24/24 22:31 Creatinine 1.0 mg/dL (0.7-1.2) 04/24/24 22:31 GFR Calculation 86.6 mL/min (90-130) L 04/24/24 22:31 Glucose 105 mg/dL (65-115) 04/24/24 22:31 Calculated Osmolality 285 mOsm/kg (285-295) 04/24/24 22:31 Calcium 9.0 mg/dL (8.5-10.5) 04/24/24 22:31 Total Bilirubin 0.4 mg/dL (0.15-1.2) 04/24/24 22:31 AST 11 U/L (0-40) 04/24/24 22:31 ALT 9 U/L (0-41) 04/24/24 22:31 Alkaline Phosphatase 80 U/L (40-130) 04/24/24 22:31 C-Reactive Protein 130.0 mg/L (0.0-4.9) H 04/24/24 22:31 Total Protein 6.9 g/dL (6.6-8.7) 04/24/24 22:31 Albumin 3.7 g/dL (3.5-5.2) 04/24/24 22:31 Globulin 3.2 g/dL (1.3-4.6) 04/24/24 22:31 All radiology interpretation(s) finalized by discharge Discharge Plan Discharge Patient Disposition: Admitted As Inpatient Admit Provider: Yelena Alvarez Clinical Impression: Abscess of antecubital fossa, Active intravenous drug use Condition: Stable Coding Level of Care Code ED [employer] for Sreedhar Bhat
[2024-04-24 22:40] LABS: Basophils % 0.3 %; Eosinophils # 0.2 10^3/uL (0.0-0.8); Eosinophils % 1.5 %; Hematocrit 43.8 % (37-53); Lymphocytes # 1.8 10^3/uL (0.8-4.8); Lymphocytes % 15.1 %; Mean Corpuscular HGB Conc 33.8 g/dL (30-55); Mean Corpuscular Hemoglobin 31.3 pg (27-33); Mean Corpuscular Volume 92.6 fl (82-101); Monocytes # 0.9 10^3/uL (0.2-0.9); Monocytes % 7.7 %; Neutrophils # 8.85 10^3/uL (1.8-7.7); Neutrophils % 75.3 %; Nucleated Red Blood Cells % 0 %; Platelet Count 220 10^3/cmm (157-399); Red Blood Count 4.73 10^6/uL (3.85-5.65); Red Cell Distribution Width 12.2 % (12.1-15.1); White Blood Count 11.76 10^3/uL (3.29-11.43)
[2024-04-24] MEDS: iohexol 350 mg/mL 500 mL Btl (per mL) IV (22:46)
[2024-04-24 22:51] LABS: Erythrocyte Sedimentation Rate 16 mm/hr (0-10)
[2024-04-24] MEDS: ondansetron 2 mg/ML SDV 2 mL 4 MG IVP (22:58)
[2024-04-24] MEDS: morphine 4 mg/mL SDV 1 mL IVP (23:01)
[2024-04-24] MEDS: vancomycin 1,000 MG in sodium chloride 0.9% 250 ML 250 MG IV (23:03)
[2024-04-24 23:06] VITALS: BP 118/67; PULSE 100; RESP 13; O2SAT 100
[2024-04-24 23:08] LABS: Alanine Aminotransferase 9 U/L (0-41); Albumin Level 3.7 g/dL (3.5-5.2); Alkaline Phosphatase 80 U/L (40-130); Anion Gap 14.7 (5-19); Aspartate Amino Transferase 11 U/L (0-40); Blood Urea Nitrogen 19 mg/dL (6-20); Carbon Dioxide 28 mmol/L (22-29); Chloride 97 mmol/L (98-107); Globulin 3.2 g/dL (1.3-4.6); Glomerular Filtration Rate 86.6 mL/min (90-130); Glucose 105 mg/dL (65-115); Osmolality Calculated 285 mOsm/kg (285-295); Potassium 3.7 mmol/L (3.5-5.1); Sodium 136 mmol/L (136-145); Total Bilirubin 0.4 mg/dL (0.15-1.2); Total Protein 6.9 g/dL (6.6-8.7)
--- NOTE | 2024-04-24 23:50 | P.HP_ITS ---
Providers/Chief Complaint 2 Admitting Physician: Yelena Alvarez MD Primary Care Provider: LASHONDA Evangelista Chief Complaint: Left arm pain/weakness History of Present Illness Tu Koehler is a 34 year old male with history of IV drug abuse fentanyl, methamphetamine presented to the hospital today for complaint of left arm swelling and pain. He states he missed when he tried to inject meth today. He has been having chills and fever. Denies nausea vomiting diarrhea constipation abdominal pain, chest pain, shortness of breath at this time. ED course: 118/67, respiratory 13, pulse 100, temperature 97.9, saturating 100% on room air. WBC 11.16, ESR 16, CRP 130. CT arm done which shows abscess in antecubital fossa. Upper extremity Dopplers pending to rule out DVT. Dr. Connie Pollock consulted. He advised to hold off on anticoagulation and keep patient n.p.o. at midnight for surgical incision drainage in AM. Medications/Allergies Home Medications Medication Instructions Recorded Confirmed Last Taken Type No Known Home Medications 04/25/24 04/25/24 Unknown History Allergies Allergy/AdvReac Type Severity Reaction Status Date / Time No Known Allergies Allergy Verified 04/24/24 21:12 PFSH Acute 2 PFSH: Medical History (Updated 04/25/24 @ 01:12 by Yelena Alvarez MD) No pertinent past medical history Surgical History No pertinent past surgical history Family History Other No pertinent family history in first degree relatives Social History Smoking and tobacco/nicotine status: current every day tobacco/nicotine user Alcohol intake: never Substance/Drug Use: former Vitals/I&O/Wt Last Vital Signs Temp 97.9 F 04/24/24 21:07 Pulse 92 04/25/24 00:43 Resp 13 04/24/24 23:06 BP 114/71 04/25/24 00:43 Pulse Ox 100 04/25/24 00:43 O2 Del Method Room Air 04/25/24 00:50 04/24/24 04/24/24 04/25/24 14:59 22:59 06:59 Intake Total 250 / 250 Balance 250 / 250 Weight last 48 hrs Weight 77.111 kg Weight 72.575 kg Physical Exam 2 Narrative: No acute distress sitting up comfortably in bed. Lungs clear to oxygen bilaterally. No wheezes no rhonchi Abdomen soft nontender Left arm significant erythema, swelling extending distally into the forearm. Antecubital fossa extremely tender to palpation with significant warmth present. Data 04/24/24 22:31 04/24/24 22:31 Micro: Microbiology 04/24/24 22:34 Blood Culture - Preliminary Blood SPECIMEN COLLECTED 04/24/24 22:31 Blood Culture - Preliminary Blood SPECIMEN COLLECTED A&P Assessment and plan (1) Abscess of antecubital fossa: (2) Active intravenous drug use: (3) Methamphetamine abuse: (4) Cellulitis: Plan #Left arm cellulitis #Antecubital fossa abscess #Superficial thrombophlebitis #IV drug user #Fever, chills secondary to above ? CT elbow shows abscess in region of antecubital fossa. No evidence of joint involvement or acute osseous abnormality. Hypodensity within a branch of brachial vein concerning for DVT. Superficial thrombophlebitis in region of abscess. ? Will place patient on vancomycin and Zosyn at this time. ? Check blood cultures ? Tylenol every 6 hours for fever ? N.p.o. at midnight except medications -Check upper extremity Dopplers ? Patient has a history of signing out AMA multiple times in the past. I did tell patient that he has a cellulitis and even after incision and drainage tomorrow he probably will need to stay for IV antibiotic and will need to rule out bacteremia. CRP is 130. Patient will need at least 48-72 hours of IV antibiotics prior to discharge. If he is indeed bacteremic it will be a challenge to treat his patient leaves AMA. Full code DVT prophylaxis: SCDs at this time. Hold off on pharmacological as per general surgery request. Attestations 2 Medical Necessity Statement*: Greater than 2 midnight stay for management of left arm cellulitis, antecubital fossa abscess. Diagnoses Abscess of antecubital fossa L02.419 Active intravenous drug use F19.90 Methamphetamine abuse F15.10 Cellulitis L03.90
[2024-04-25] VITALS (16 sets, daily range): BP systolic 106–138; BP diastolic 45–77; PULSE 65–106; RESP 16–18; TEMP 36.1–37.1; O2SAT 94–100; BMI 21.8
[2024-04-25] MEDS: morphine 4 mg/mL SDV 1 mL IVP ×5 (00:19→23:55)
[2024-04-25] MEDS: pantoprazole 40 mg SDV IVP (01:25)
[2024-04-25] MEDS: sodium chloride 0.9% 1,000 ML 999 ML IV (01:26)
[2024-04-25] MEDS: piperacillin-tazobactam 3.375 GM in sodium chloride 0.9% (plus) 50 ML IV ×4 (01:47→19:54)
[2024-04-25 02:23] LABS: Magnesium 1.6 mg/dL (1.7-2.3)
[2024-04-25 02:24] LABS: Lactic Sepsis W/Reflex 0.9 mmol/L (0.5-2.2)
[2024-04-25 02:31] LABS: Procalcitonin 0.16 ng/mL (0-0.5)
[2024-04-25] MEDS: sodium chloride 0.9% 1,000 ML 125 ML IV ×3 (02:32→23:54)
[2024-04-25] MEDS: LORazepam 2 mg/mL INJ 1 mL 1 MG IVP (04:17)
--- NOTE | 2024-04-25 08:02 | P.CONIM_ITS ---
Providers/Reason For Consult 2 Consulting Physician/Specialty*: General surgery Reason for Consult*: Abscess of the left upper extremity Attending Physician: Yelena Alvarez MD Primary Care Provider: LASHONDA Evangelista History of Present Illness History of Present Illness Tu Koehler is a 34 year old male with history of IV drug abuse who presented to the hospital with left antecubital swelling show ladies and abscess formation after injection of drugs into the subcutaneous tissue. Patient states that 2 days ago he attempted to inject blocks into his bloodstream and he means the vein injecting them into the subcutaneous tissue, after this he developed edema pain erythema and swelling at the level of the antecubital fossa. A CT scan done in the emergency department show evidence of extensive cellulitis of the left upper extremity and a subcutaneous abscess at the level of the antecubital fossa. There is also some thrombosis of the superficial veins at this level. Review of Systems 2 General: Reports: 10 or more systems reviewed and unremarkable except in HPI and below Medications/Allergies Home Medications Medication Instructions Recorded Confirmed Last Taken Type No Known Home Medications 04/25/24 04/25/24 Unknown History Allergies Allergy/AdvReac Type Severity Reaction Status Date / Time No Known Allergies Allergy Verified 04/24/24 21:12 Current Medications Generic Name Dose Route Start Last Admin Trade Name Freq PRN Reason Stop Dose Admin Sodium Chloride 1,000 mls @ 125 mls/hr 04/25/24 01:15 04/25/24 02:32 Sodium Chloride 0.9% IV 125 mls/hr .Q8H JONO Administration Piperacillin Sod/Tazobactam 50 mls @ 12.5 mls/hr 04/25/24 06:00 04/25/24 05:18 Sod 3.375 gm/ Sodium Chloride IV 12.5 mls/hr Q8H JONO Administration Morphine Sulfate 4 mg 04/25/24 01:13 04/25/24 04:17 Morphine 4 Mg/Ml Sdv 1 Ml IVP 4 mg Q4H PRN Administration SEVERE PAIN Pantoprazole Sodium 40 mg 04/25/24 01:15 04/25/24 01:25 Pantoprazole 40 Mg Sdv IVP 40 mg Q24H JONO Administration PFSH Acute 2 PFSH: Medical History (Updated 04/25/24 @ 01:12 by Yelena Alvarez MD) No pertinent past medical history Surgical History No pertinent past surgical history Family History Other No pertinent family history in first degree relatives Social History Smoking and tobacco/nicotine status: current every day tobacco/nicotine user Alcohol intake: never Substance/Drug Use: former Vitals/I&O/Wt Last Vital Signs Temp 98.5 F 04/25/24 04:00 Pulse 100 04/25/24 04:00 Resp 16 04/25/24 04:17 BP 112/73 04/25/24 04:00 Pulse Ox 98 04/25/24 04:00 O2 Del Method Room Air 04/25/24 04:00 04/24/24 04/25/24 04/25/24 22:59 06:59 14:59 Intake Total 1300 / 1300 Balance 1300 / 1300 Weight last 48 hrs Weight 179 lb 8 oz Weight 170 lb Weight 160 lb Physical Exam 2 Narrative: General : Patient is well developed , no acute distress, oriented x3 Head : Normal cephalic, a-traumatic. Nose : Mucous membranes are without erythema. Lungs : Equal chest rise bilaterally, no use of accessory muscles, trachea is midline. CV : Rate and rhythm are normal. Abdomen : Soft, ND, NT, no g/r/m Extremities : Left upper extremity has erythema and edema that extends from the distal arm to the level of the forearm, there is area of fluctuance and significant tenderness at the level of the antecubital fossa. Back : non-tender to palpation, no CVA tenderness. Data 04/24/24 22:31 04/24/24 22:31 Micro: Microbiology 04/24/24 22:34 Blood Culture - Preliminary Blood SPECIMEN COLLECTED 04/24/24 22:31 Blood Culture - Preliminary Blood SPECIMEN COLLECTED A&P Assessment and plan (1) Active intravenous drug use: (2) Abscess of antecubital fossa: (3) Cellulitis: Plan 34-year-old male with left upper extremity abscess in the setting of IV drug abuse. Patient will require I&D of the liver extremity abscess. I discussed with the patient the risk and benefits of this procedure including the risks of bleeding, damage to surrounding structures, recurrent infection, need for additional interventions, nerve damage, poor cosmetic outcome, progression of the infection and sepsis. Patient shows understanding agrees and wishes to proceed. We will proceed to the OR today. After I&D patient will require IV antibiotics until there is improvement of his cellulitis and then he can get daily dressing changes until wound heals. Coding Level of Care Code 43834 Diagnoses Active intravenous drug use F19.90 Abscess of antecubital fossa L02.419 Cellulitis L03.90
[2024-04-25] MEDS: vancomycin 1,000 MG in sodium chloride 0.9% 250 ML 250 MG IV ×3 (08:14→23:55)
[2024-04-25 08:24] LABS: C Reactive Protein 114.7 mg/L (0.0-4.9)
--- NOTE | 2024-04-25 09:47 | PC.CHAP ---
Pastoral Care Encounter/Spiritual Assessment Type of Contact [] Declined lab analyst visit [] Patient/Family/Request visit [] Outpatient visit [] Follow-up visit [] Physician referral [] Code/Alert [] Routine visit [] Staff referral [] Actively dying [] Patient sleeping [] Family support [] [] Out of room [] Palliative care [] [x] Receiving care in room [] Pre-surgical visit [] Trauma [] Long length of stay [] ICU visit [] Other: Relational/Emotional Strength [] Patient feels connected with others/family/visitors/staff [] Distress [] Loneliness/isolation [] Abandonment Spirituality of Patient [] Person of Agatha [] Attends Jainism of their Agatha [] Believes in Prayer [] Reads Bible or Sabianism materials [] There are Spiritual issues to be addressed Police Worker Interventions [] Prayer [] Active listening [] Non-anxious presence [] Spiritual/emotional support [] Crisis/trauma care [] Spiritual counseling [] Bereavement support [] Provided bereavement packet [] Provided Bible/devotional materials [] Provided toy/stuffed animal, coloring book to patient or family member [] Provided Communion [] Anointing/[place] [] Salvation [] Completed spiritual assessment [] Other: Impact on Illness or Injury [] Angry [] Fearful [] Anxious [] Often cries [] Exhaustion [] Unable to work [] Unable to attend jehovah's witness [] Unable to walk/stand [] Unable to read [] Unable to drive [] Unable to eat/drink [] Unable to sleep [] Unable to be with family [] Patient intubated [] Other: Summary Time spent with patient
--- NOTE | 2024-04-25 10:12 | P.ANESASSM_ITS ---
Pre-Anesthetic Assessment Height/Weight: Height 1.88 m Weight 81.42 kg Temp Pulse Resp BP Pulse Ox O2 Del Method 98.5 F 90 16 106/67 97 Room Air 04/25/24 08:00 04/25/24 08:00 04/25/24 08:00 04/25/24 08:00 04/25/24 08:00 04/25/24 08:00 Operation Date: 04/25/24 07:10 Proposed Procedures p Incision And Drainage Incision And Drainage Upper Extremity(Left) - Guanaco Reynoso MD Operation Date: 04/25/24 12:10 Proposed Procedures p Incision And Drainage Incision And Drainage Upper Extremity(Left) - Guanaco Reynoso MD Familial anesthetic complications: None Was Beta Shirin taken within 24 hours: N/A Was Clonidine taken within 24 hours: N/A Last intake: Intake Last Liquid Date 04/24/24 Last Solid Date 04/23/24 Social Alcohol and Tobacco methamphetamines 2 days ago Exam alert, oriented x 3, clear to auscultation bilaterally and regular rate & rhythm Airway Mallampati: Class II Dentition: chipped Comments: Comments: white Pulmonary hx aspiration pneumonia Anesthetic Plan ASA status: 3 Anesthesia: General Risk of > 500 ml blood loss (7ml/kg in children): No Other Pertinent Information patient with history of abuse of multiple substances, has been found unresponsive from overdose multiple times. H required CPR and intubation and developed shock liver, ARF, and metabolic acidosis as a result. Medications/Allergies Home Medications Medication Instructions Recorded Confirmed Last Taken Type No Known Home Medications 04/25/24 04/25/24 Unknown History Allergies Allergy/AdvReac Type Severity Reaction Status Date / Time No Known Allergies Allergy Verified 04/24/24 21:12 Current Medications Generic Name Dose Route Start Last Admin Trade Name Freq PRN Reason Stop Dose Admin Sodium Chloride 1,000 mls @ 125 mls/hr 04/25/24 01:15 04/25/24 02:32 Sodium Chloride 0.9% IV 125 mls/hr .Q8H JONO Administration Piperacillin Sod/Tazobactam 50 mls @ 12.5 mls/hr 04/25/24 06:00 04/25/24 05:18 Sod 3.375 gm/ Sodium Chloride IV 12.5 mls/hr Q8H JONO Administration Vancomycin HCl 1,000 mg/ 250 mls @ 250 mls/hr 04/25/24 08:00 04/25/24 08:14 Sodium Chloride IV 250 mls/hr Q8H JONO Administration Morphine Sulfate 4 mg 04/25/24 01:13 04/25/24 04:17 Morphine 4 Mg/Ml Sdv 1 Ml IVP 4 mg Q4H PRN Administration SEVERE PAIN Pantoprazole Sodium 40 mg 04/25/24 01:15 04/25/24 01:25 Pantoprazole 40 Mg Sdv IVP 40 mg Q24H JONO Administration PFSH Anesthesia Medical History (Updated 04/25/24 @ 01:12 by Yelena Alvarez MD) No pertinent past medical history Surgical History No pertinent past surgical history Family History Other No pertinent family history in first degree relatives Social History Smoking and tobacco/nicotine status: current every day tobacco/nicotine user Alcohol intake: never Substance/Drug Use: former Data Anesthesia 04/24/24 22:31 04/24/24 22:31 Short CBC 04/24/24 Range/Units 22:31 WBC 11.76 H (3.29-11.43) 10^3/uL Hgb 14.80 (11.27-16.99) g/dL Hct 43.8 (37-53) % MCV 92.6 (82-101) fl Plt Count 220 (157-399) 10^3/cmm Neut % (Auto) 75.3 % Neut # (Auto) 8.85 H (1.8-7.7) 10^3/uL BMP 04/24/24 22:31 Sodium 136 Potassium 3.7 Chloride 97 L Carbon Dioxide 28 BUN 19 Creatinine 1.0 Glucose 105 Calcium 9.0 Liver Function 04/24/24 Range/Units 22:31 Total Bilirubin 0.4 (0.15-1.2) mg/dL AST 11 (0-40) U/L ALT 9 (0-41) U/L Alkaline Phosphatase 80 (40-130) U/L Albumin 3.7 (3.5-5.2) g/dL Coags 04/24/24 04/25/24 22:31 01:51 ESR 16 H C-Reactive Protein 130.0 H 114.7 H Microbiology 04/24/24 22:34 Blood Culture - Preliminary Blood SPECIMEN COLLECTED 04/24/24 22:31 Blood Culture - Preliminary Blood SPECIMEN COLLECTED Cardiac Studies: 2 Echocardiogram 02/11/23
[2024-04-25] MEDS: lidocaine-epi 1% 20 mL INJ INJECTION (12:42)
--- NOTE | 2024-04-25 12:53 | PM.OP ---
Operative Report Date of procedure: April 25, 2024 Pre-op diagnosis: Left upper extremity cellulitis and abscess Post-op diagnosis: Same Post-op findings: There was a 4 x 3 cm subcutaneous abscess of the left antecubital fossa. Procedure done: Incision and drainage of left antecubital fossa abscess Specimens removed/disposition: Cultures Surgeon: Guanaco Reynoso MD Associate Professor Of Musicology: KASSANDRA OR Staff Estimated blood loss: 5 Complications: none Brief History: 34-year-old male with history of IV drug abuse who presents with cellulitis and abscess of the left upper extremity. I&D was indicated. Procedure: Patient was brought into the OR, moderate anesthesia sedation was given. The left upper extremity was prepped and draped in the usual sterile fashion and timeout was conducted. I proceeded to make that 2.5 cm incision overlying the area of maximal fluctuance in the antecubital fossa, immediate entry and upon the abscess cavity was noted and large amount of purulent material was evacuated, measuring about 20 cc. Cultures were taken. Loculations were broken with a hemostat and blunt dissection. The wound was irrigated abundantly with saline. Hemostasis was obtained. No residual abscess was noted. Local anesthesia was infiltrated. The abscess cavity was packed with quarter inch iodoform packing. Sterile dressing was applied. At the end of the procedure all counts were correct, the patient tolerated well the procedure and was transferred to the PACU in stable condition.
--- NOTE | 2024-04-25 13:10 | ANE.PACU2 ---
Inpatient post-anesthesia follow up: Airway intact: Yes Vital signs: Temperature 98.1 F Pulse Rate 83 Respiratory Rate 17 Blood Pressure 119/27 Pulse Oximetry 99 Oxygen Delivery Me thod Room Air Oxygen Flow Rate 6 Fraction of Inspir ed Oxygen Hydration adequate: Yes Nausea and vomiting: No Pain level: 1 Mental status: Baseline
--- NOTE | 2024-04-25 13:41 | P.PN_ITS ---
Subjective 2 Subjective: Sleeping. Wakes up briefly, cough or shortness of breath or chest pain. Awaiting drainage of left arm abscess with surgery. Vitals/I&O/Wt Last Vital Signs Temp 97 F L 04/25/24 12:58 Pulse 93 04/25/24 13:15 Resp 16 04/25/24 13:15 BP 118/58 04/25/24 13:15 Pulse Ox 100 04/25/24 13:15 O2 Del Method Room Air 04/25/24 13:15 O2 Flow Rate 6 04/25/24 13:08 04/24/24 04/25/24 04/25/24 22:59 06:59 14:59 Intake Total 1300 / 1300 300 / 300 Output Total 2 / 2 Balance 1300 / 1300 298 / 298 Weight last 48 hrs Weight 81.42 kg Weight 77.111 kg Weight 72.575 kg Physical Exam 2 Const: GENERAL APPEARANCE: cooperative and disheveled HENMT: COMMON NORMALS: oropharynx normal Neck/C-Spine: COMMON NORMALS: no JVD Resp: COMMON NORMALS: normal respiratory effort and clear to auscultation bilaterally AUSCULTATION: clear to auscultation bilaterally Cardio: COMMON NORMALS: no JVD, regular rhythm, S1 normal heart sound present, S2 normal heart sound present and No murmurs present (Cardio) RHYTHM: regular rhythm HEART SOUNDS: S1 normal heart sound present and S2 normal heart sound present GI: COMMON NORMALS: Normal to inspection, nondistended, normoactive bowel sounds present, Soft to palpation and non-tender PALPATION: Yes Soft to palpation Extremity: COMMON NORMALS: no pedal edema NARRATIVE EXTREMITY EXAM: Swelling of the left proximal forearm. Distal upper arm. Neuro: COMMON NORMALS: moves all extremities Skin: COMMON NORMALS: no rashes or lesions noted GENERAL SKIN EXAM: no rashes or lesions noted Data 04/24/24 22:31 04/24/24 22:31 Micro: Microbiology 04/24/24 22:34 Blood Culture - Preliminary Blood SPECIMEN COLLECTED 04/24/24 22:31 Blood Culture - Preliminary Blood SPECIMEN COLLECTED A&P Assessment and plan (1) Abscess of antecubital fossa: Reviewed vitals, CBC, CMP, procalcitonin, CRP. Noted leukocytosis, elevated CRP. Reviewed venous duplex ultrasound, negative for DVT. Discussed with surgeon, status post I&D of the small abscess. Cultures were sent out. Follow- up. Follow-up blood cultures. Continue IV antibiotics today for extensive cellulitis, reassess tomorrow. On vancomycin and Zosyn, monitor for risk of kidney injury with antibiotic combination. Reassess kidney function. He has required IV morphine for pain control. (2) Active intravenous drug use: Discussed with case management to assist him with rehabilitation options. (3) Methamphetamine abuse: (4) Cellulitis: Plan #Left arm cellulitis #Antecubital fossa abscess #Superficial thrombophlebitis #IV drug user #Fever, chills secondary to above ? Patient has a history of signing out AMA multiple times in the past. Patient will need at least 48-72 hours of IV antibiotics prior to discharge. If he is indeed bacteremic it will be a challenge to treat his patient leaves AMA. Full code DVT prophylaxis: SCDs at this time. Hold off on pharmacological as per general surgery request. Attestations 2 Medical Necessity Statement*: Continue admission for assessment management of abscess, large area of cellulitis of left upper extremity, superficial thrombophlebitis and gentleman with IV drug use disorder, follow-up blood culture. and High MDM includes amount and/or complexity of data reviewed/ordered [ resulted lab(s)/test(s), ordered lab(s)/test(s) and other healthcare professional discussion] and described risk of complication, morbidity or mortality of management as documented Diagnoses Abscess of antecubital fossa L02.419 Active intravenous drug use F19.90 Methamphetamine abuse F15.10 Cellulitis L03.90
[2024-04-25] MEDS: magnesium sulfate premix 2 GM/50 ML PIGGYBACK IV (13:48)
[2024-04-25] MEDS: nicotine 21 mg Patch 2 PATCH TRANSDERMA (17:17)
[2024-04-25] MEDS: nicotine 4 mg lozenge MUCOUS MEM (17:17)
[2024-04-25] MEDS: nicotine 2 mg Gum 4 MG BUCCAL (17:17)
[2024-04-25] MEDS: LORazepam 1 mg Tablet PO (20:32)
[2024-04-26] VITALS (7 sets, daily range): BP systolic 111–133; BP diastolic 27–87; PULSE 74–100; RESP 17–18; TEMP 36.3–37.3; O2SAT 98–100
[2024-04-26] MEDS: pantoprazole 40 mg SDV IVP (01:27)
[2024-04-26] MEDS: LORazepam 2 mg/mL INJ 1 mL 1 MG IVP (01:27)
--- NOTE | 2024-04-26 01:31 | PC.NURSE ---
Pts mother called stating the pt has been texting her stating that he is anxious and wanting to leave. Mother called and spoke w/this nurse stating that she was going to come in a sit with him and requests IVP ativan b/c the po doesn't work b/c he has a high tolerance . Upon entry to pt room to administer 1x dose of ativan pt is resting w/his eyes closed. Pt does awake to verbal stimuli. Ativan administered per orders.
[2024-04-26] MEDS: piperacillin-tazobactam 3.375 GM in sodium chloride 0.9% (plus) 50 ML IV ×2 (05:14→12:12)
[2024-04-26 06:53] LABS: Basophils % 0.4 %; Eosinophils # 0.2 10^3/uL (0.0-0.8); Eosinophils % 2.9 %; Hematocrit 37.7 % (37-53); Lymphocytes # 2.1 10^3/uL (0.8-4.8); Mean Corpuscular Hemoglobin 31.1 pg (27-33); Mean Corpuscular Volume 91.5 fl (82-101); Mean Platelet Volume 9.9 fL (7.4-10.4); Monocytes # 0.7 10^3/uL (0.2-0.9); Monocytes % 9.9 %; Neutrophils # 4.37 10^3/uL (1.8-7.7); Neutrophils % 58.4 %; Nucleated Red Blood Cells % 0 %; Platelet Count 214 10^3/cmm (157-399); Red Blood Count 4.12 10^6/uL (3.85-5.65); Red Cell Distribution Width 11.9 % (12.1-15.1); White Blood Count 7.49 10^3/uL (3.29-11.43)
[2024-04-26 07:11] LABS: Anion Gap 13.1 (5-19); Blood Urea Nitrogen 7 mg/dL (6-20); Calcium 8.6 mg/dL (8.5-10.5); Carbon Dioxide 25 mmol/L (22-29); Chloride 107 mmol/L (98-107); Creatinine Clr Calc Pharmacy 152.7105; Glucose 96 mg/dL (65-115); Osmolality Calculated 290 mOsm/kg (285-295); Potassium 4.1 mmol/L (3.5-5.1); Sodium 141 mmol/L (136-145)
[2024-04-26 07:12] LABS: Vancomycin Trough 12.2 ug/mL (10-15)
[2024-04-26] MEDS: vancomycin 1,000 MG in sodium chloride 0.9% 250 ML 250 MG IV (08:23)
[2024-04-26] MEDS: morphine 4 mg/mL SDV 1 mL IVP ×2 (08:24→12:37)
[2024-04-26] MEDS: HYDROmorphone 1 mg/mL INJ 1 mL IVP (09:58)
[2024-04-26] MEDS: sodium chloride 0.9% 1,000 ML 125 ML IV (09:58)
--- NOTE | 2024-04-26 10:23 | P.PN_ITS ---
Subjective 2 Subjective: Patient is postoperative day 1 status post I&D of left antecubital fossa abscess. Patient has been having very good progression, edema and erythema Significantly improved, pain is improving, no other complaints. Vitals/I&O/Wt Last Vital Signs Temp 97.4 F L 04/26/24 07:50 Pulse 74 04/26/24 07:50 Resp 17 04/26/24 08:24 BP 111/74 04/26/24 07:50 Pulse Ox 99 04/26/24 07:50 O2 Del Method Room Air 04/26/24 07:50 O2 Flow Rate 6 04/25/24 13:08 04/25/24 04/26/24 04/26/24 22:59 06:59 14:59 Intake Total 1350 / 2650 314.583 / 2964.583 1756.459 / 1756.459 Balance 1350 / 2648 314.583 / 2962.583 1756.459 / 1756.459 Weight last 48 hrs Weight 177 lb 1 oz Weight 179 lb 8 oz Weight 170 lb Weight 160 lb Physical Exam 2 Extremity: NARRATIVE EXTREMITY EXAM: Left upper extremity dressing was removed, no evidence of purulence, no bleeding, wound appears to be healing well, there is minimal edema and erythema surrounding the wound but is significantly improved from yesterday. Packing was replaced Data 04/26/24 06:33 04/26/24 06:33 Micro: Microbiology 04/24/24 22:34 Blood Culture - Preliminary Blood NEGATIVE TO DATE 04/24/24 22:31 Blood Culture - Preliminary Blood NEGATIVE TO DATE 04/25/24 12:35 Gram Stain - Final Other Source A&P Assessment and plan (1) Opioid use disorder, severe, dependence: (2) Active intravenous drug use: (3) Abscess of antecubital fossa: (4) Cellulitis: Plan Excellent progression after I&D of left antecubital fossa abscess, wound care provided at bedside today. White count of the patient has improved and is now normal, vital signs are stable. Patient is cleared for discharge from the general surgery standpoint, he can receive local wound care daily according to the patient he has a friend who Is nursing training who will help him with the dressing, the dressing should be done by quarter inch packing followed by gauze and Suzanne wrap. Patient should receive also a 7 to 10-day course of antibiotics as outpatient. All other care per primary team. Attestations 2 Medical Necessity Statement*: Per medical team Coding Level of Care Code Acute Code for [facility] Fwd Diagnoses Opioid use disorder, severe, dependence F11.20 Active intravenous drug use F19.90 Abscess of antecubital fossa L02.419 Cellulitis L03.90
--- NOTE | 2024-04-26 10:53 | P.DS_ITS ---
Discharge Providers Date of Admission: 04/24/24 23:47 Date of Discharge: April 26, 2024 Attending Provider at Admission: Yelena Alvarez MD Attending Provider at Discharge: Aiden Evangelista Primary Care Provider: LASHONDA Evangelista Diagnoses at Discharge Discharge Diagnosis (1) Opioid use disorder, severe, dependence: Status: Acute (2) Active intravenous drug use: Status: Acute (3) Abscess of antecubital fossa: Status: Acute (4) Cellulitis: Status: Acute Reason for Visit Reason for Visit: Left arm pain/weakness Hospital Course Hospital Course 34-year-old gentleman with substance use disorder with IV use of fentanyl, methamphetamine, presented with swelling and pain of the left arm, with erythema, warmth, finding of cellulitis and abscess. Antecubital fossa abscess visualized on CT, in addition incidentally seen to have superficial thrombophlebitis in the surrounding area. Cultures were sent, started on antibiotic treatment with vancomycin and Zosyn. Was assessed by surgery and underwent I&D of the abscess site. Additional culture sent from the wound. Cultures are pending. Today he is doing much better. Swelling is decreasing. He remains afebrile, leukocytosis resolved. Wound was repacked and reassessed with surgery. He has a friend who will help him with repacking and dressing the wound. He is also accompanied by his grandmother. He states that he has arrangements underway for rehabilitation which is also court ordered for him. We additionally discussed with him risks of substance use and intravenous injection, including risk of endocarditis, sepsis with distal spread, disability and . She verbalized understanding. She will complete antibiotic course with cephalexin and linezolid unless there are changes needed based on culture. Please follow-up final culture results. He will treat superficial, but is conservatively. We discussed and he knows to seek medical attention in case of worsening or new concerning symptoms. Physical Exam Narrative: Accompanied by his grandmother. Const: COMMON NORMALS: patient oriented x3 and alert GENERAL APPEARANCE: cooperative and disheveled ORIENTATION/CONSCIOUSNESS: Yes awake HENMT: COMMON NORMALS: oropharynx normal Neck/C-Spine: COMMON NORMALS: no JVD Resp: COMMON NORMALS: normal respiratory effort and clear to auscultation bilaterally AUSCULTATION: clear to auscultation bilaterally Cardio: COMMON NORMALS: no JVD, regular rhythm, S1 normal heart sound present, S2 normal heart sound present and No murmurs present (Cardio) RHYTHM: regular rhythm HEART SOUNDS: S1 normal heart sound present and S2 normal heart sound present GI: COMMON NORMALS: Normal to inspection, nondistended, normoactive bowel sounds present, Soft to palpation and non-tender PALPATION: Yes Soft to palpation Extremity: COMMON NORMALS: no pedal edema NARRATIVE EXTREMITY EXAM: Improving swelling of the left proximal forearm. Distal upper arm. Neuro: COMMON NORMALS: patient oriented x3 and moves all extremities SENSORIUM/ORIENTATION: Yes alert Skin: COMMON NORMALS: no rashes or lesions noted GENERAL SKIN EXAM: no rashes or lesions noted Discharge Data Studies Completed and Pending Completed Studies During Hospitalization Category Date Time Status CT elbow LT w con [id number] Stat Cat Scan 04/24/24 22:23 Completed US venous duplex upper extremity LT [CV venous duplex Ultrasound 04/24/24 22:23 [place] [id number]] Stat Pending at discharge Category Date Time Status Anaerobic Culture Routine Lab 04/25/24 12:35 Results Blood Culture Stat Lab 04/24/24 22:34 Results Wound Culture and Gram Stain Routine Lab 04/25/24 12:35 Results Radiology Impressions Elbow CT 04/24/24 22:23 IMPRESSION: 1. Abscess in the region of the antecubital fossa. No evidence of joint involvement or acute osseous abnormality. 2. Hypodensity within a branch of the brachial vein concerning for DVT. Correlation with Doppler ultrasound is recommended. 3. Superficial thrombophlebitis in the region of the abscess. Laboratory Results WBC 7.49 10^3/uL (3.29-11.43) 04/26/24 06:33 RBC 4.12 10^6/uL (3.85-5.65) 04/26/24 06:33 Hgb 12.80 g/dL (11.27-16.99) 04/26/24 06:33 Hct 37.7 % (37-53) 04/26/24 06:33 MCV 91.5 fl (82-101) 04/26/24 06:33 MCH 31.1 pg (27-33) 04/26/24 06:33 MCHC 34.0 g/dL (30-55) 04/26/24 06:33 RDW 11.9 % (12.1-15.1) L 04/26/24 06:33 Plt Count 214 10^3/cmm (157-399) 04/26/24 06:33 MPV 9.9 fL (7.4-10.4) 04/26/24 06:33 Neut % (Auto) 58.4 % 04/26/24 06:33 Lymph % (Auto) 28.0 % 04/26/24 06:33 Cassia % (Auto) 9.9 % 04/26/24 06:33 Eos % (Auto) 2.9 % 04/26/24 06:33 Baso % (Auto) 0.4 % 04/26/24 06:33 Neut # (Auto) 4.37 10^3/uL (1.8-7.7) 04/26/24 06:33 Lymph # (Auto) 2.1 10^3/uL (0.8-4.8) 04/26/24 06:33 Cassia # (Auto) 0.7 10^3/uL (0.2-0.9) 04/26/24 06:33 Eos # (Auto) 0.2 10^3/uL (0.0-0.8) 04/26/24 06:33 Baso # (Auto) 0.0 10^3/uL (0.0-0.1) 04/26/24 06:33 Nucleated RBC % (auto) 0 % 04/26/24 06:33 Nucleated RBCs # 0.0 /100WBC 04/26/24 06:33 ESR 16 mm/hr (0-10) H 04/24/24 22:31 Sodium 141 mmol/L (136-145) 04/26/24 06:33 Potassium 4.1 mmol/L (3.5-5.1) 04/26/24 06:33 Chloride 107 mmol/L (98-107) 04/26/24 06:33 Carbon Dioxide 25 mmol/L (22-29) 04/26/24 06:33 Anion Gap 13.1 (5-19) 04/26/24 06:33 BUN 7 mg/dL (6-20) 04/26/24 06:33 Creatinine 0.8 mg/dL (0.7-1.2) 04/26/24 06:33 GFR Calculation 112.0 mL/min (90-130) 04/26/24 06:33 Glucose 96 mg/dL (65-115) 04/26/24 06:33 Calculated Osmolality 290 mOsm/kg (285-295) 04/26/24 06:33 Lactic Acid 0.9 mmol/L (0.5-2.2) 04/25/24 01:51 Calcium 8.6 mg/dL (8.5-10.5) 04/26/24 06:33 Magnesium 1.6 mg/dL (1.7-2.3) L 04/25/24 01:51 Total Bilirubin 0.4 mg/dL (0.15-1.2) 04/24/24 22:31 AST 11 U/L (0-40) 04/24/24 22:31 ALT 9 U/L (0-41) 04/24/24 22:31 Alkaline Phosphatase 80 U/L (40-130) 04/24/24 22:31 C-Reactive Protein 114.7 mg/L (0.0-4.9) H 04/25/24 01:51 Total Protein 6.9 g/dL (6.6-8.7) 04/24/24 22:31 Albumin 3.7 g/dL (3.5-5.2) 04/24/24 22:31 Globulin 3.2 g/dL (1.3-4.6) 04/24/24 22:31 Procalcitonin 0.16 ng/mL (0-0.5) 04/25/24 01:51 Vancomycin Trough 12.2 ug/mL (10-15) 04/26/24 06:33 Vitals Last Vital Signs Temp 97.4 F L 04/26/24 07:50 Pulse 74 04/26/24 07:50 Resp 17 04/26/24 08:24 BP 111/74 04/26/24 07:50 Pulse Ox 99 04/26/24 07:50 O2 Del Method Room Air 04/26/24 07:50 O2 Flow Rate 6 04/25/24 13:08 Discharge Plan Discharge Patient Disposition: Home Condition: Stable Prescriptions: New cephalexin 500 mg capsule 500 mg PO BID Qty: 12 0RF ibuprofen 200 mg Tablet 400 mg PO Q6H PRN (Reason: Mild/Mod Pain Or Temp >/= 101) Qty: 40 0RF nicotine (polacrilex) 4 mg Lozenge 4 mg mucous membrane Q2H PRN (Reason: Nicotine Cravings) Qty: 90 2RF nicotine 21 mg/24 hr Patch 24 Hour 2 patch transdermal Q24H Qty: 90 2RF linezolid 600 mg tablet 600 mg PO BID Qty: 12 0RF No Action No Known Home Medications Discharge Orders: Discharge Order (Routine); Ordered 04/26/24 Ordered By: Aiden Evangelista Referrals: [facility] [Other] (7 days/week 8am-6pm) [facility] [Outside] (? Follow up as a walk in at [facility], walk in hours are Sunday-Sunday from 7:30AM-3:00PM, first come, first seen. Once you do this assessment you will be referred for appropriate services.) Guanaco Reynoso MD [Physician] - 2 weeks Guy Razo FNP-C [Primary Care Provider] - 4-7 days Patient Instructions: Acute Wound Care (DC), Methamphetamine Use Disorder (DC), Opioid Safety, Post Anesthesia Care Activity Restrictions/Additional Instructions: Continue with arrangements for rehabilitation for substance use disorder due to multiple risks as discussed including risk of bacteremia, infection settling on the heart, going to the spine, brain, etc. Continue dressing changes as per surgery instruction. Complete antibiotic course and follow-up with surgery for reassessment of the wound. Keep elevatede to the level of the heart when possible to help decrease swelling. Seek medical attention discussed in case of any worsening or new concerning symptoms. Work on quitting smoking as continued smoking increases your risk of cardiovascular disease including heart attack, stroke, lung disease and several different cancers. Discharge Attestations Time Spent in Discharge Care*: greater than 30 min Quality Metrics Clinical Quality Measures [ No reported AMI, CVA or VTE this stay] Coding Level of Care Code 17393 Total time (in minutes) for Discharge: 45 Diagnoses Opioid use disorder, severe, dependence F11.20 Active intravenous drug use F19.90 Abscess of antecubital fossa L02.419 Cellulitis L03.90
== END 2024-04-26 14:05 | disposition home or self-care (01) | DRG 603 ==
LOC: ER 22:15 → MEDSURG 23:48
PROVIDERS: Surgery; Admitting Provider Internal Medicine; Emergency Provider Physician Assistant; PCP Nurse Practitioner; Visit Provider Internal Medicine
PROC: 0X9C0ZZ Drainage of Left Elbow Region, Open Approach (ICD-10-PCS; principal; 2024-04-25 12:00)
DX: L02.414 Cutaneous abscess of left upper limb (principal); F11.20 Opioid dependence, uncomplicated; F15.10 Other stimulant abuse, uncomplicated; L03.114 Cellulitis of left upper limb; I80.8 Phlebitis and thrombophlebitis of other sites; F17.210 Nicotine dependence, cigarettes, uncomplicated
CPT/HCPCS: 36415; 73201; 80048; 80053; 80202; 83605; 83735; 84145; 85025; 85651; 86140; 87040; 87070; 87075; 87077; 87186; 87205; 93971; 96365; 96375; 99285; C9113; J1170; J2060; J2250; J2270; J2405; J2543; J2704; J3010; J3370; J3475; J7030; J7050; Q9967

== ENCOUNTER 2024-10-17 04:51 | Observation (INO) | payer BC, MEDICAID, SELFPAY ==
[2024-10-17] VITALS (18 sets, daily range): BP systolic 94–144; BP diastolic 58–100; PULSE 76–126; RESP 16–18; TEMP 36.3–36.7; O2SAT 92–100; BMI 22.2
--- NOTE | 2024-10-17 05:00 | US_ITS ---
WS: [id number] ULTRASOUND SOFT TISSUES LEFT antecubital space. HISTORY: left ac space red swollen mass, suspect abscess COMPARISON: CT was also performed. TECHNIQUE: 2-D and color Doppler imaging is submitted. There is a complex collection with increased vascularity in the LEFT antecubital fossa. Collection me asures 3.1 x 1.8 x 3.1 cm. US/US soft tissue/extremity 23230 IMPRESSION: LEFT antecubital space abscess.
--- NOTE | 2024-10-17 05:02 | W.ED.GENADLT ---
Documented by User: Bimal Rivera DO 10/17/24 05:14 HPI - General Adult General: Chief complaint: Skin/Abscess/Foreign Body Stated complaint: bump on left arm Time Seen by Provider: 10/17/24 04:55 History of Present Illness: Patient presents to the ER with a complaint of a bump on his left arm. There is a red swollen area on his left AC space he says started out to be a very small lump about 2 to 3 days ago but just progressed over time a very large painful lump. There is no red streaking or obvious drainage. It is too tender to palpate for fluctuance. From previous records patient is a IV drug user and has had an I&D and infectious disease consult and inpatient stay with surgical drainage from an abscess in the exact same area back in April of this year. Related Data Previous Rx's Medication Instructions Recorded lorazepam 1 mg tablet (Ativan) 1 mg PO TID #90 tabs 09/29/24 Allergies Allergy/AdvReac Type Severity Reaction Status Date / Time No Known Allergies Allergy Verified 09/16/24 16:09 Review of Systems General: Reports: 10 or more systems reviewed and unremarkable except in HPI and below PFSH ED PFSH: Medical History Anxiety Methamphetamine abuse Opioid use disorder, severe, dependence Surgical History No pertinent past surgical history Family History Other Diabetes Leukemia No pertinent family history in first degree relatives Denies family history of TIA (transient ischemic attack) Cancer Social History Smoking and tobacco/nicotine status: current every day tobacco/nicotine user Alcohol intake: unknown Substance/Drug Use: current Substance/Drug use frequency: few times a week Adopted: No Caregiver/support person: No Lives independently: Yes Household members: family Housing: House Marital status: Single Number of children: 1 service: No Current occupational status: unemployed Current occupational exposures/hazards: No Pets and animals: No Do you think of yourself as: Straight/Heterosexual Current gender identity: Male Physical Exam Const: COMMON NORMALS: no acute distress, average body habitus, patient oriented x3, no limitations, healthy appearing, alert and well nourished HENMT: COMMON NORMALS: normocephalic, atraumatic, hearing grossly normal bilaterally, external ears normal, Normal external nose present and moist oral mucous membranes HEAD & SCALP: normocephalic and atraumatic NOSE: Normal external nose present EXTERNAL EAR: Yes external ears normal Neck/C-Spine: COMMON NORMALS: no JVD Chest: COMMONS NORMALS: normal inspection of the chest and normal palpation of entire chest wall Resp: COMMON NORMALS: normal respiratory effort, No retractions, No use of accessory muscles and clear to auscultation bilaterally AUSCULTATION: clear to auscultation bilaterally Cardio: COMMON NORMALS: no JVD, regular rate, regular rhythm, S1 normal heart sound present, S2 normal heart sound present, No gallops present (Cardio), No clicks present (Cardio), No murmurs present (Cardio) and No rub (Cardio) RATE: regular rate RHYTHM: regular rhythm HEART SOUNDS: S1 normal heart sound present and S2 normal heart sound present GI: COMMON NORMALS: Normal to inspection, nondistended, normoactive bowel sounds present, Soft to palpation, non-tender, No hepatosplenomegaly present and no masses PALPATION: Yes Soft to palpation and Yes No hepatosplenomegaly present Extremity: NARRATIVE EXTREMITY EXAM: Large firm red indurated lesion in the AC space very tender to palpate, no obvious drainage streaking or fluctuance with minimal palpation allowed by the patient due to pain. Suspect abscess. Neuro: COMMON NORMALS: patient oriented x3 SENSORIUM/ORIENTATION: Yes alert Course Vital Signs: Vital signs: Vital Signs Pulse Rate 89 10/17/24 08:39 Respiratory Rate 16 10/17/24 05:00 Blood Pressure 121/69 10/17/24 08:39 Pulse Oximetry 97 10/17/24 08:39 Oxygen Delivery Me thod Room Air 10/17/24 06:00 [facility] - General Adult Medical Records I reviewed the patient's medical records. Lab Data I reviewed the patient's lab results. 10/17/24 06:50 10/17/24 06:28 Radiology Impressions Soft Tissue Ultrasound 10/17/24 05:00 IMPRESSION: LEFT antecubital space abscess. Elbow CT 10/17/24 08:17 IMPRESSION: 1. Antecubital fossa abscess is localized to the soft tissues. Abscess measures 5.0 x 2.0 x 3.1 cm. 2. There is no joint effusion. The fat in the anterior and posterior joint space is normal. 3. Marked surrounding cellulitis along the anterior elbow. Laboratory Results WBC 11.03 10^3/uL (3.29-11.43) 10/17/24 06:50 RBC 4.95 10^6/uL (3.85-5.65) 10/17/24 06:50 Hgb 15.10 g/dL (11.27-16.99) 10/17/24 06:50 Hct 44.8 % (37-53) 10/17/24 06:50 MCV 90.5 fl (82-101) 10/17/24 06:50 MCH 30.5 pg (27-33) 10/17/24 06:50 MCHC 33.7 g/dL (30-55) 10/17/24 06:50 RDW 12.2 % (12.1-15.1) 10/17/24 06:50 Plt Count 281 10^3/cmm (157-399) 10/17/24 06:50 MPV 9.5 fL (7.4-10.4) 10/17/24 06:50 Neut % (Auto) 63.8 % 10/17/24 06:50 Lymph % (Auto) 24.3 % 10/17/24 06:50 Russell % (Auto) 10.8 % 10/17/24 06:50 Eos % (Auto) 0.5 % 10/17/24 06:50 Baso % (Auto) 0.2 % 10/17/24 06:50 Neut # (Auto) 7.04 10^3/uL (1.8-7.7) 10/17/24 06:50 Lymph # (Auto) 2.7 10^3/uL (0.8-4.8) 10/17/24 06:50 Russell # (Auto) 1.2 10^3/uL (0.2-0.9) H 10/17/24 06:50 Eos # (Auto) 0.1 10^3/uL (0.0-0.8) 10/17/24 06:50 Baso # (Auto) 0.0 10^3/uL (0.0-0.1) 10/17/24 06:50 Nucleated RBC % (auto) 0 % 10/17/24 06:50 Nucleated RBCs # 0.0 /100WBC 10/17/24 06:50 Sodium 139 mmol/L (136-145) 10/17/24 06:28 Potassium 3.7 mmol/L (3.5-5.1) 10/17/24 06:28 Chloride 105 mmol/L (98-107) 10/17/24 06:28 Carbon Dioxide 23 mmol/L (22-29) 10/17/24 06:28 Anion Gap 14.7 (5-19) 10/17/24 06:28 BUN 11 mg/dL (6-20) 10/17/24 06:28 Creatinine 1.0 mg/dL (0.7-1.2) 10/17/24 06:28 GFR Calculation 86.6 mL/min (90-130) L 10/17/24 06:28 Glucose 98 mg/dL (65-115) 10/17/24 06:28 Calculated Osmolality 287 mOsm/kg (285-295) 10/17/24 06:28 Lactic Acid 0.9 mmol/L (0.5-2.2) 10/17/24 06:28 Calcium 9.0 mg/dL (8.5-10.5) 10/17/24 06:28 Total Bilirubin 0.3 mg/dL (0.15-1.2) 10/17/24 06:28 AST 10 U/L (0-40) 10/17/24 06:28 ALT 7 U/L (0-41) 10/17/24 06:28 Alkaline Phosphatase 87 U/L (40-130) 10/17/24 06:28 C-Reactive Protein 13.4 mg/L (0.0-4.9) H 10/17/24 06:28 Total Protein 6.6 g/dL (6.6-8.7) 10/17/24 06:28 Albumin 3.9 g/dL (3.5-5.2) 10/17/24 06:28 Globulin 2.7 g/dL (1.3-4.6) 10/17/24 06:28 Procalcitonin 0.18 ng/mL (0-0.5) 10/17/24 06:28 All radiology interpretation(s) finalized by discharge Discharge Plan Discharge Patient Disposition: Admitted As Inpatient Clinical Impression: Abscess of skin or subcutaneous tissue, Methamphetamine abuse Condition: Stable Prescriptions: No Action lorazepam [Ativan] 1 mg tablet 1 mg PO TID Qty: 90 0RF Referrals: Guy Razo FNP-C [Primary Care Provider] - Sign Out Sign Out Data: Patient Sign Out occurred on 10/17/24 at 07:48. Patient's care was discussed, and care was transferred from Bimal Rivera DO to Yogi Elena DO. Coding Level of Care Code ED Documentation Nurse for Chg Fwd Documented by User: Yogi Elena DO 10/17/24 09:56 HPI - General Adult General: Chief complaint: Skin/Abscess/Foreign Body Stated complaint: bump on left arm Time Seen by Provider: 10/17/24 04:55 History of Present Illness: Patient presents to the ER with a complaint of a bump on his left arm. There is a red swollen area on his left AC space he says started out to be a very small lump about 2 to 3 days ago but just progressed over time a very large painful lump. There is no red streaking or obvious drainage. It is too tender to palpate for fluctuance. From previous records patient is a IV drug user and has had an I&D and infectious disease consult and inpatient stay with surgical drainage from an abscess in the same area back in April of this year. Related Data Previous Rx's Medication Instructions Recorded lorazepam 1 mg tablet (Ativan) 1 mg PO TID #90 tabs 09/29/24 Allergies Allergy/AdvReac Type Severity Reaction Status Date / Time No Known Allergies Allergy Verified 09/16/24 16:09 [facility] ED PFS: Medical History Anxiety Methamphetamine abuse Opioid use disorder, severe, dependence Surgical History No pertinent past surgical history Family History Other Diabetes Leukemia No pertinent family history in first degree relatives Denies family history of TIA (transient ischemic attack) Cancer Social History Smoking and tobacco/nicotine status: current every day tobacco/nicotine user Alcohol intake: unknown Substance/Drug Use: current Substance/Drug use frequency: few times a week Adopted: No Caregiver/support person: No Lives independently: Yes Household members: family Housing: House Marital status: Single Number of children: 1 service: No Current occupational status: unemployed Current occupational exposures/hazards: No Pets and animals: No Do you think of yourself as: Straight/Heterosexual Current gender identity: Male Course Vital Signs: Vital signs: Vital Signs Pulse Rate 89 10/17/24 08:39 Respiratory Rate 16 10/17/24 05:00 Blood Pressure 121/69 10/17/24 08:39 Pulse Oximetry 97 10/17/24 08:39 Oxygen Delivery Me thod Room Air 10/17/24 06:00 MDM - General Adult Medical Decision Making Patient is abscess antecubital fossa. Ultrasound appears to be mostly soft tissue discussed Dr. Markham could not completely rule out joint involvement. Her recommendation is CT was done. We are able to confirm there is no joint involvement the abscess measures 5 by 2 x 3.1 cm. Patient unable to tolerate nearly any palpation of the region. Will admit to Dr. Laird for incision and drainage patient last ate around midnight. Cultures have been done and has been given a dose of linezolid. Lab Data 10/17/24 06:50 10/17/24 06:28 Radiology Impressions Soft Tissue Ultrasound 10/17/24 05:00 IMPRESSION: LEFT antecubital space abscess. Elbow CT 10/17/24 08:17 IMPRESSION: 1. Antecubital fossa abscess is localized to the soft tissues. Abscess measures 5.0 x 2.0 x 3.1 cm. 2. There is no joint effusion. The fat in the anterior and posterior joint space is normal. 3. Marked surrounding cellulitis along the anterior elbow. Laboratory Results WBC 11.03 10^3/uL (3.29-11.43) 10/17/24 06:50 RBC 4.95 10^6/uL (3.85-5.65) 10/17/24 06:50 Hgb 15.10 g/dL (11.27-16.99) 10/17/24 06:50 Hct 44.8 % (37-53) 10/17/24 06:50 MCV 90.5 fl (82-101) 10/17/24 06:50 MCH 30.5 pg (27-33) 10/17/24 06:50 MCHC 33.7 g/dL (30-55) 10/17/24 06:50 RDW 12.2 % (12.1-15.1) 10/17/24 06:50 Plt Count 281 10^3/cmm (157-399) 10/17/24 06:50 MPV 9.5 fL (7.4-10.4) 10/17/24 06:50 Neut % (Auto) 63.8 % 10/17/24 06:50 Lymph % (Auto) 24.3 % 10/17/24 06:50 Russell % (Auto) 10.8 % 10/17/24 06:50 Eos % (Auto) 0.5 % 10/17/24 06:50 Baso % (Auto) 0.2 % 10/17/24 06:50 Neut # (Auto) 7.04 10^3/uL (1.8-7.7) 10/17/24 06:50 Lymph # (Auto) 2.7 10^3/uL (0.8-4.8) 10/17/24 06:50 Russell # (Auto) 1.2 10^3/uL (0.2-0.9) H 10/17/24 06:50 Eos # (Auto) 0.1 10^3/uL (0.0-0.8) 10/17/24 06:50 Baso # (Auto) 0.0 10^3/uL (0.0-0.1) 10/17/24 06:50 Nucleated RBC % (auto) 0 % 10/17/24 06:50 Nucleated RBCs # 0.0 /100WBC 10/17/24 06:50 Sodium 139 mmol/L (136-145) 10/17/24 06:28 Potassium 3.7 mmol/L (3.5-5.1) 10/17/24 06:28 Chloride 105 mmol/L (98-107) 10/17/24 06:28 Carbon Dioxide 23 mmol/L (22-29) 10/17/24 06:28 Anion Gap 14.7 (5-19) 10/17/24 06:28 BUN 11 mg/dL (6-20) 10/17/24 06:28 Creatinine 1.0 mg/dL (0.7-1.2) 10/17/24 06:28 GFR Calculation 86.6 mL/min (90-130) L 10/17/24 06:28 Glucose 98 mg/dL (65-115) 10/17/24 06:28 Calculated Osmolality 287 mOsm/kg (285-295) 10/17/24 06:28 Lactic Acid 0.9 mmol/L (0.5-2.2) 10/17/24 06:28 Calcium 9.0 mg/dL (8.5-10.5) 10/17/24 06:28 Total Bilirubin 0.3 mg/dL (0.15-1.2) 10/17/24 06:28 AST 10 U/L (0-40) 10/17/24 06:28 ALT 7 U/L (0-41) 10/17/24 06:28 Alkaline Phosphatase 87 U/L (40-130) 10/17/24 06:28 C-Reactive Protein 13.4 mg/L (0.0-4.9) H 10/17/24 06:28 Total Protein 6.6 g/dL (6.6-8.7) 10/17/24 06:28 Albumin 3.9 g/dL (3.5-5.2) 10/17/24 06:28 Globulin 2.7 g/dL (1.3-4.6) 10/17/24 06:28 Procalcitonin 0.18 ng/mL (0-0.5) 10/17/24 06:28 Discharge Plan Discharge Patient Disposition: Admitted As Inpatient Clinical Impression: Abscess of skin or subcutaneous tissue, Methamphetamine abuse Condition: Stable Prescriptions: No Action lorazepam [Ativan] 1 mg tablet 1 mg PO TID Qty: 90 0RF Referrals: Guy Razo, [employer]-[facility] [Primary Care Provider] - Sign Out Sign Out Data: Patient Sign Out occurred on 10/17/24 at 07:48. Patient's care was discussed, and care was transferred from Bimal Rivera DO to Yogi Elena DO. Coding Level of Care Code ED Documentation Nurse for Sreedhar Bhat
[2024-10-17 06:55] LABS: Basophils % 0.2 %; Eosinophils # 0.1 10^3/uL (0.0-0.8); Eosinophils % 0.5 %; Hematocrit 44.8 % (37-53); Lymphocytes # 2.7 10^3/uL (0.8-4.8); Lymphocytes % 24.3 %; Mean Corpuscular HGB Conc 33.7 g/dL (30-55); Mean Corpuscular Hemoglobin 30.5 pg (27-33); Mean Corpuscular Volume 90.5 fl (82-101); Mean Platelet Volume 9.5 fL (7.4-10.4); Monocytes # 1.2 10^3/uL (0.2-0.9); Monocytes % 10.8 %; Neutrophils # 7.04 10^3/uL (1.8-7.7); Neutrophils % 63.8 %; Nucleated Red Blood Cells % 0 %; Platelet Count 281 10^3/cmm (157-399); Red Blood Count 4.95 10^6/uL (3.85-5.65); Red Cell Distribution Width 12.2 % (12.1-15.1); White Blood Count 11.03 10^3/uL (3.29-11.43)
[2024-10-17 06:59] LABS: Alanine Aminotransferase 7 U/L (0-41); Albumin Level 3.9 g/dL (3.5-5.2); Alkaline Phosphatase 87 U/L (40-130); Anion Gap 14.7 (5-19); Aspartate Amino Transferase 10 U/L (0-40); Blood Urea Nitrogen 11 mg/dL (6-20); C Reactive Protein 13.4 mg/L (0.0-4.9); Carbon Dioxide 23 mmol/L (22-29); Chloride 105 mmol/L (98-107); Creatinine Clr Calc Pharmacy 116.1642; Globulin 2.7 g/dL (1.3-4.6); Glomerular Filtration Rate 86.6 mL/min (90-130); Glucose 98 mg/dL (65-115); Osmolality Calculated 287 mOsm/kg (285-295); Potassium 3.7 mmol/L (3.5-5.1); Sodium 139 mmol/L (136-145); Total Bilirubin 0.3 mg/dL (0.15-1.2); Total Protein 6.6 g/dL (6.6-8.7)
[2024-10-17 07:00] LABS: Lactic Sepsis W/Reflex 0.9 mmol/L (0.5-2.2)
[2024-10-17 07:04] LABS: Procalcitonin 0.18 ng/mL (0-0.5)
--- NOTE | 2024-10-17 08:17 | CT_ITS ---
WS: [id number] CT LEFT ELBOW, WITH CONTRAST HISTORY: Antecubital fossa abscess Technique: All CT scans at [facility] use at least one of these dose optimization techniques: automated exposure control; mA and/or kV adjustment per patient size (includes targeted exams where dose is matched to clinical indication); or iterative reconstruction. DLP: 96.27 mGy.cm COMPARISON: 10/17/2024 ultrasound Complex fluid collection in the antecubital fossa along with surrounding cellulitis is identified. Co llection extends over a length of 5.0 cm, AP by 2.0 and transversely by 3.1 cm. There is no air in th is collection. Large amount of surrounding edema. Abscess abuts and is anterior to the muscle groups. There is no intra-articular extension identified. The surrounding vessels are normally enhancing. No fracture. CT/CT elbow LT w con [id number] IMPRESSION: 1. Antecubital fossa abscess is localized to the soft tissues. Abscess measure s 5.0 x 2.0 x 3.1 cm. 2. There is no joint effusion. The fat in the anterior and posterior joint spa ce is normal. 3. Marked surrounding cellulitis along the anterior elbow.
[2024-10-17] MEDS: linezolid premix 600 MG/300 ML PREMIX 300 MG IV (08:36)
[2024-10-17] MEDS: iohexol 350 mg/mL 500 mL Btl (per mL) IV (08:59)
--- NOTE | 2024-10-17 12:06 | ANES.PREANE2 ---
Pre-Anesthetic Assessment Height/Weight: Height 1.88 m Weight 70.307 kg Temp Pulse Resp BP Pulse Ox O2 Del Method 97.7 F 82 18 116/73 92 Room Air 10/17/24 10:54 10/17/24 10:54 10/17/24 10:54 10/17/24 10:54 10/17/24 10:54 10/17/24 10:54 Operation Date: 10/17/24 14:00 Proposed Procedures p Incision And Drainage left upper extremity abscess(Left) - Deepak Laird DO Familial anesthetic complications: NOne Was Beta Shirin taken within 24 hours: N/A Was Clonidine taken within 24 hours: N/A Last intake: Intake Last Liquid Date 10/16/24 Last Liquid Time 23:49 Last Solid Date 10/16/24 Last Solid Time 23:49 Social No alcohol and No tobacco Meth use Airway Mallampati: Class II Dentition: chipped Anesthetic Plan ASA status: 3 Anesthesia: MAC Other Pertinent Information patient with history of abuse of multiple substances, has been found unresponsive from overdose multiple times. H required CPR and intubation and developed shock liver, ARF, and metabolic acidosis as a result. Medications/Allergies Home Medications Medication Instructions Recorded Confirmed Last Taken Type lorazepam 1 mg tablet (Ativan) 1 mg PO TID #90 tabs 09/29/24 10/17/24 Unknown Rx Allergies Allergy/AdvReac Type Severity Reaction Status Date / Time No Known Allergies Allergy Verified 09/16/24 16:09 [facility] Anesthesia Medical History Anxiety Methamphetamine abuse Opioid use disorder, severe, dependence Surgical History No pertinent past surgical history Family History Other Diabetes Leukemia No pertinent family history in first degree relatives Denies family history of TIA (transient ischemic attack) Cancer Social History Smoking and tobacco/nicotine status: current every day tobacco/nicotine user Alcohol intake: unknown Substance/Drug Use: current Substance/Drug use frequency: few times a week Adopted: No Caregiver/support person: No Lives independently: Yes Household members: family Housing: House Marital status: Single Number of children: 1 service: No Current occupational status: unemployed Current occupational exposures/hazards: No Pets and animals: No Do you think of yourself as: Straight/Heterosexual Current gender identity: Male Data Anesthesia 10/17/24 06:50 10/17/24 06:28 Short CBC 10/17/24 Range/Units 06:50 WBC 11.03 (3.29-11.43) 10^3/uL Hgb 15.10 (11.27-16.99) g/dL Hct 44.8 (37-53) % MCV 90.5 (82-101) fl Plt Count 281 (157-399) 10^3/cmm Neut % (Auto) 63.8 % Neut # (Auto) 7.04 (1.8-7.7) 10^3/uL BMP 10/17/24 06:28 Sodium 139 Potassium 3.7 Chloride 105 Carbon Dioxide 23 BUN 11 Creatinine 1.0 Glucose 98 Calcium 9.0 Liver Function 10/17/24 Range/Units 06:28 Total Bilirubin 0.3 (0.15-1.2) mg/dL AST 10 (0-40) U/L ALT 7 (0-41) U/L Alkaline Phosphatase 87 (40-130) U/L Albumin 3.9 (3.5-5.2) g/dL Coags 10/17/24 06:28 C-Reactive Protein 13.4 H Microbiology 10/17/24 06:50 Blood Culture - Preliminary Blood SPECIMEN COLLECTED 10/17/24 06:28 Blood Culture - Preliminary Blood SPECIMEN COLLECTED Cardiac Studies: Echocardiogram 02/11/23
--- NOTE | 2024-10-17 12:57 | P.HP_ITS ---
Providers/Chief Complaint 2 Admitting Physician: Deepak Laird DO Primary Care Provider: LASHONDA Evangelista Chief Complaint: bump on left arm History of Present Illness Tu Koehler is a 34 year old male presents to the hospital with a 2-day history of pain and swelling in his left antecubital fossa. He is an IV drug user and injected at the site 2 or 3 days ago. Pain is constant and does not radiate. Palpation makes pain worse. Nothing makes pain better. Imaging showed an abscess. He denies any fever or chills Review of Systems 2 General: Reports: 10 or more systems reviewed and unremarkable except in HPI and below Medications/Allergies Home Medications Medication Instructions Recorded Confirmed Last Taken Type lorazepam 1 mg tablet (Ativan) 1 mg PO TID #90 tabs 09/29/24 10/17/24 Unknown Rx Allergies Allergy/AdvReac Type Severity Reaction Status Date / Time No Known Allergies Allergy Verified 09/16/24 16:09 PFSH Acute 2 PFSH: Medical History Anxiety Methamphetamine abuse Opioid use disorder, severe, dependence Surgical History No pertinent past surgical history Family History Other Diabetes Leukemia No pertinent family history in first degree relatives Denies family history of TIA (transient ischemic attack) Cancer Social History Smoking and tobacco/nicotine status: current every day tobacco/nicotine user Alcohol intake: unknown Substance/Drug Use: current Substance/Drug use frequency: few times a week Adopted: No Caregiver/support person: No Lives independently: Yes Household members: family Housing: House Marital status: Single Number of children: 1 service: No Current occupational status: unemployed Current occupational exposures/hazards: No Pets and animals: No Do you think of yourself as: Straight/Heterosexual Current gender identity: Male Vitals/I&O/Wt Last Vital Signs Temp 97.7 F 10/17/24 10:54 Pulse 82 10/17/24 10:54 Resp 18 10/17/24 10:54 BP 116/73 10/17/24 10:54 Pulse Ox 92 10/17/24 10:54 O2 Del Method Room Air 10/17/24 10:54 Weight last 48 hrs Weight 155 lb Physical Exam 2 Narrative: General : Patient is well developed , no acute distress, oriented x3 Head : Normal cephalic, a-traumatic. Ears : Pinnae and external canal are normal. Hearing is normal. Eyes : PERRLA, Sclera and injection are normal. No conjunctival discharge. Nose : Mucous membranes are without erythema. Throat : buccal mucosa is normal, gums are without significant recession or hypertrophy. Lungs : Equal chest rise bilaterally, no use of accessory muscles, trachea is midline. Cor : Rate and rhythm are normal. Abdomen : Soft, ND, NT, no g/r/m Extremities : There is an abscess in his left antecubital fossa with induration and erythema Back : non-tender to palpation, no CVA tenderness. Neuro : CN II - XII intact, Upper and lower extremities have equal and full strength Data 10/17/24 06:50 10/17/24 06:28 Micro: Microbiology 10/17/24 06:50 Blood Culture - Preliminary Blood SPECIMEN COLLECTED 10/17/24 06:28 Blood Culture - Preliminary Blood SPECIMEN COLLECTED A&P Assessment and plan (1) Abscess of left upper extremity: (2) Active intravenous drug use: (3) Methamphetamine abuse: (4) Opioid use disorder, severe, dependence: Plan Incision and drainage left upper extremity abscess The risks and benefits of the procedure, including but not limited to, bleeding, scar, numbness, pain, damage to surrounding structures, need for further surgery, were explained to the patient. He was understanding of the risks and wished to proceed. Attestations 2 Medical Necessity Statement*: Patient will need to stay at least 1 night in the hospital for IV antibiotics and dressing changes tomorrow Coding Level of Care Code 24776 Diagnoses Abscess of left upper extremity L02.414 Active intravenous drug use F19.90 Methamphetamine abuse F15.10 Opioid use disorder, severe, dependence F11.20
--- NOTE | 2024-10-17 13:41 | PM.OP ---
Operative Report Date of procedure: October 17, 2024 Pre-op diagnosis: Left upper extremity abscess Post-op diagnosis: same Procedure done: Incision and drainage left upper extremity abscess Implants: Half-inch iodoform packing gauze Specimens removed/disposition: Cultures Surgeon: Deepak Laird DO Anesthesia: MAC and Local Estimated blood loss (mL): 5 Complications: None apparent Brief History: This is a very pleasant 34-year-old gentleman who came in with an abscess in his left antecubital fossa from injecting methamphetamine. Incision and drainage was indicated. The risk and benefits were explained and documented. Procedure: Patient was will not room and remained on the hospital bed in the supine position. Propofol sedation was provided by the part of anesthesia. The left upper extremity was inspected prepped and draped in usual sterile fashion. A timeout was performed. All present were in agreement. 2% lidocaine with epinephrine was used anesthetize the skin overlying the abscess. A 15 blade scalpel was used to make a 1.5 cm incision over the area of most fluctuance. Copious amounts of purulence were expelled. Cultures were taken. All abscess cavities were broken with hemostats. Wound was irrigated with normal saline. Half-inch iodoform packing gauze was packed into the wound. Sterile dressing was applied. Patient tolerated procedure well.
--- NOTE | 2024-10-17 14:15 | ANE.PACU2 ---
Inpatient post-anesthesia follow up: Airway intact: Yes Vital signs: Temperature 97.8 F Pulse Rate 91 Respiratory Rate 16 Blood Pressure 112/73 Pulse Oximetry 100 Oxygen Delivery Me thod Room Air Oxygen Flow Rate Fraction of Inspir ed Oxygen Hydration adequate: Yes Nausea and vomiting: No Pain level: 1 Mental status: Baseline
[2024-10-17] MEDS: LORazepam 1 mg Tablet PO (16:01)
[2024-10-17] MEDS: HYDROcodone-acetaminophen 7.5-325 mg Tablet 1 TAB PO (16:17)
== END 2024-10-17 18:20 | disposition left against medical advice (07) ==
LOC: ER 10:00 → OR 10:34 → MEDSURG 18:19
PROVIDERS: Emergency Medicine; Admitting Provider Surgery; Emergency Provider Family Medicine; PCP Nurse Practitioner; Visit Provider Surgery
PROC: (CPT 10060; principal; 2024-10-17 13:50)
DX: L02.414 Cutaneous abscess of left upper limb (principal); F41.9 Anxiety disorder, unspecified; F17.200 Nicotine dependence, unspecified, uncomplicated; F15.10 Other stimulant abuse, uncomplicated; F11.20 Opioid dependence, uncomplicated
CPT/HCPCS: 10060; 73201; 76882; 80053; 83605; 84145; 85025; 86140; 87040; 87070; 87075; 87077; 87205; 96365; 99285; G0378; J2020; J2250; J2704; J3010

== ENCOUNTER 2025-01-27 00:21 | Emergency (ER) | payer BC, MEDICAID, SELFPAY ==
[2025-01-27 00:44] VITALS: BP 110/67; PULSE 121; RESP 18; TEMP 37.2; O2SAT 97; BMI 18.2
[2025-01-27 02:00] VITALS: BP 116/71; PULSE 74; O2SAT 99
--- NOTE | 2025-01-27 02:12 | CTR_ITS ---
PROCEDURE INFORMATION: Exam: CT Head Without Contrast Exam date and time: 01/27/2025 2:24 AM Age: 34 years old Clinical indication: Pain; Headache not specified; Additional info: Headache, pain in temples and behind eyes. Tachycardia TECHNIQUE: Imaging protocol: Computed tomography of the head without contrast. Radiation optimization: All CT scans at this facility use at least one of these dose optimization techniques: automated exposure control; mA and/or kV adjustment per patient size (includes targeted exams where dose is matched to clinical indication); or iterative reconstruction. COMPARISON: CT head wo con* [id number] 02/10/2023 4:10 PM RADIATION DOSE METRICS: Total DLP (mGy-cm): 1181.68 FINDINGS: Brain: Normal. No hemorrhage. Unremarkable white matter. No mass effect. Cerebral ventricles: No ventriculomegaly. Paranasal sinuses: Mild ethmoid air cell and left maxillary sinus mucosal thickening. Paranasal sinuses otherwise clear. Mastoid air cells: Visualized mastoid air cells are well aerated. Bones: Unremarkable. No acute fracture. Soft tissues: Unremarkable. CT/CT head wo con* [id number] IMPRESSION: 1. No visualized acute intracranial pathology. 2. Mild, chronic ethmoid and left maxillary sinusitis.
--- NOTE | 2025-01-27 02:12 | ED_ITS ---
HPI - Headache General: Chief Complaint: Headache Stated Complaint: Headache Time Seen by Provider: 01/27/25 02:09 History of Present Illness: Patient presents to the ER by EMS with complaints of a headache. Open he bilateral congregation region behind his eyes. And in the frontal head. He says he feels his heartbeat in his temples. Feels like his head is being smashed with a hammer. Patient says he normally does not get headaches at all or specially headaches like these. Patient denies any other symptoms or trauma at this time. Related Data Previous Rx's ?Medication ?Instructions ?Recorded lorazepam 1 mg tablet (Ativan) 1 mg PO TID #90 tabs Allergies Allergy/AdvReac Type Severity Reaction Status Date / Time No Known Allergies Allergy Verified 11/05/24 15:10 Review of Systems General: Reports: 10 or more systems reviewed and unremarkable except in HPI and below PFSH ED PFSH: Medical History Anxiety Methamphetamine abuse Opioid use disorder, severe, dependence Surgical History No pertinent past surgical history Family History Other Diabetes Leukemia No pertinent family history in first degree relatives Denies family history of TIA (transient ischemic attack) Cancer Social History Smoking and tobacco/nicotine status: current every day tobacco/nicotine user Alcohol intake: unknown Substance/Drug Use: current Substance/Drug use frequency: few times a week Adopted: No Caregiver/support person: No Lives independently: Yes Household members: family Housing: House Marital status: Single Number of children: 1 service: No Current occupational status: unemployed Current occupational exposures/hazards: No Pets and animals: No Do you think of yourself as: Straight/Heterosexual Current gender identity: Male Physical Exam Const: COMMON NORMALS: no acute distress, average body habitus, patient oriented x3, no limitations, healthy appearing, alert and well nourished HENMT: COMMON NORMALS: normocephalic, atraumatic, hearing grossly normal bilaterally, external ears normal, Normal external nose present, moist oral mucous membranes and oropharynx normal HEAD & SCALP: normocephalic and atraumatic NOSE: Normal external nose present EXTERNAL EAR: Yes external ears normal Eye: COMMON NORMALS: Equal, round and reactive pupils present, EOMs intact bilaterally, conjunctivae normal and no scleral icterus CONJUNCTIVA: Yes conjunctivae normal PUPIL: Yes Equal, round and reactive pupils present Neck/C-Spine: COMMON NORMALS: full ROM, no lymphadenopathy, supple, no meningeal signs, no JVD and Thyroid normal THYROID: Thyroid normal Chest: COMMONS NORMALS: normal inspection of the chest and normal palpation of entire chest wall Resp: COMMON NORMALS: normal respiratory effort, No retractions, No use of accessory muscles and clear to auscultation bilaterally AUSCULTATION: clear to auscultation bilaterally Cardio: COMMON NORMALS: no JVD, regular rhythm, S1 normal heart sound present, S2 normal heart sound present, No gallops present (Cardio), No clicks present (Cardio) and No murmurs present (Cardio); negative for regular rate (Tachycardic) RATE: abnormal rate (Tachycardic) RHYTHM: regular rhythm HEART SOUNDS: S1 normal heart sound present and S2 normal heart sound present Neuro: COMMON NORMALS: patient oriented x3 SENSORIUM/ORIENTATION: Yes alert MENINGEAL SIGNS: Yes no meningeal signs Course Vital Signs: Vital signs: Vital Signs Temperature 98.9 F 01/27/25 00:44 Pulse Rate 71 01/27/25 04:49 Respiratory Rate 18 01/27/25 00:44 Blood Pressure 103/69 01/27/25 04:49 Pulse Oximetry 98 01/27/25 04:49 MDM - Headache Medical Decision Making Head CT read off by radiologist as negative. Patient be discharged home. Medical Records I reviewed the patient's medical records. Lab Data I reviewed the patient's lab results. Radiology Impressions Head CT 01/27/25 02:12 IMPRESSION: 1. No visualized acute intracranial pathology. 2. Mild, chronic ethmoid and left maxillary sinusitis. All radiology interpretation(s) finalized by discharge Discharge Plan Discharge Patient Disposition: Home Clinical Impression: Headache Qualifiers: Headache type: unspecified Headache chronicity pattern: acute headache Intractability: not intractable Qualified Code(s): R51.9 - Headache, unspecified Condition: Stable Prescriptions: No Action lorazepam [Ativan] 1 mg tablet 1 mg PO TID Qty: 90 0RF Discharge Orders: Discharge ED (Routine); Ordered 01/27/25 Ordered By: Bimal Rivera Referrals: Guy Razo, [employer] MACHINE OPERATOR-C [Primary Care Provider] - 1 week Patient Instructions: Headache Activity Restrictions/Additional Instructions: Thank you for choosing [facility] for your healthcare needs today. Please realize that you were seen in the emergency department and that we are providing you with an emergency medical screening exam and this may not be a complete and all exclusive of all testing and/or medical workup we may need to determine your element or severity of your illness. It is very important that you follow-up as instructed with your primary care provider or specialist for the additional evaluation and to discuss your medical treatment plan. You may return to the emergency department should you have concerns or if your condition changes or worsens in any way. Print Language: Armenian Coding Level of Care Code ED Chief Ii Dispatcher for Sreedhar Bhat
[2025-01-27 03:15] VITALS: BP 113/70; PULSE 73; O2SAT 96
[2025-01-27 04:49] VITALS: BP 103/69; PULSE 71; O2SAT 98
[2025-01-27 05:17] VITALS: BP 106/69; PULSE 65; O2SAT 97
== END 2025-01-27 05:18 | disposition home or self-care (01) ==
PROVIDERS: Emergency Provider Emergency Medicine; PCP Nurse Practitioner
DX: R51.9 Headache, unspecified (principal); Z72.0 Tobacco use
CPT/HCPCS: 70450; 99284

== ENCOUNTER 2025-02-10 03:39 | Emergency (ER) | payer BC, MEDICAID, SELFPAY ==
[2025-02-10 03:40] VITALS: BP 106/90; PULSE 81; RESP 18; TEMP 36.8; O2SAT 96; BMI 22.4
[2025-02-10] MEDS: BUPivacaine 0.5% INJ 10 mL INJECTION (03:49)
--- NOTE | 2025-02-10 03:49 | W.ED.DENTAL ---
HPI - Dental/Oral General: Chief complaint: Dental/Oral Stated complaint: dental pain Time Seen by Provider: 02/10/25 03:42 Source: patient Mode of arrival: ambulatory Limitations: no limitations History of Present Illness: 34-year-old male states that he had right lower dental pain throughout the day he is here from skilled nursing states the pain is currently 9 out of 10 has a history of poor dentition denies any fevers denies any trismus denies any vomiting or diarrhea or difficulty swallowing Associated symptoms: Denies fever(s) Related Data Previous Rx's ?Medication ?Instructions ?Recorded lorazepam 1 mg tablet (Ativan) 1 mg PO TID #90 tabs 11/05/24 cephalexin 500 mg capsule 500 mg PO TID 7 days #21 caps 02/10/25 Allergies Allergy/AdvReac Type Severity Reaction Status Date / Time No Known Allergies Allergy Verified 11/05/24 15:10 Review of Systems Const: Denies: fever(s), chills, body aches or change in appetite ENMT: Reports: dental pain; Denies: throat pain Card: Denies: chest pain Resp: Denies: dyspnea GI: Denies: abdominal pain, nausea, vomiting or diarrhea Musc: Denies: neck pain or back pain Skin/Breast: Denies: rash Neuro: Denies: headache(s) PFSH ED PFSH: Medical History Anxiety Methamphetamine abuse Opioid use disorder, severe, dependence Surgical History No pertinent past surgical history Family History Other Diabetes Leukemia No pertinent family history in first degree relatives Denies family history of TIA (transient ischemic attack) Cancer Social History Smoking and tobacco/nicotine status: current every day tobacco/nicotine user Alcohol intake: unknown Substance/Drug Use: current Substance/Drug use frequency: few times a week Adopted: No Caregiver/support person: No Lives independently: Yes Household members: family Housing: House Marital status: Single Number of children: 1 service: No Current occupational status: unemployed Current occupational exposures/hazards: No Pets and animals: No Do you think of yourself as: Straight/Heterosexual Current gender identity: Male Physical Exam Const: COMMON NORMALS: no acute distress, patient oriented x3 and healthy appearing HENMT: COMMON NORMALS: normocephalic and atraumatic HEAD & SCALP: normocephalic and atraumatic OTHER: Tenderness over right lower molar no abscess or trismus Neck/C-Spine: COMMON NORMALS: full ROM and supple Chest: COMMONS NORMALS: normal inspection of the chest Resp: COMMON NORMALS: normal respiratory effort Cardio: COMMON NORMALS: regular rate RATE: regular rate Extremity: COMMON NORMALS: normal to inspection Neuro: COMMON NORMALS: patient oriented x3, moves all extremities and no focal motor deficits Psych: COMMON NORMALS: mental status grossly normal, Normal thought process present and cooperative THOUGHT PROCESS: Normal thought process present Skin: COMMON NORMALS: no rashes or lesions noted and no wounds GENERAL SKIN EXAM: no rashes or lesions noted Procedures Nerve Block Nerve Block 1: Local Anesthetic: bupivacaine 0.5% Amount of anesthesia used (mL): 8 Side: left Intraoral Nerve Block: infraorbital Procedure Successful: Yes Patient Tolerated Procedure: well Complications: none Course Vital Signs: Vital signs: Vital Signs Temperature 98.2 F 02/10/25 03:40 Pulse Rate 81 02/10/25 03:40 Respiratory Rate 18 02/10/25 03:40 Blood Pressure 106/90 02/10/25 03:40 Pulse Oximetry 96 02/10/25 03:40 Oxygen Delivery Me thod Room Air 02/10/25 03:40 MDM - Dental/Oral Medical Decision Making Patient presents here with dental pain he has no trismus or abscess did do a dental block with good relief we will place him on Keflex he has to follow-up with a dentist return if worsening Medical Records I reviewed the patient's medical records. No radiology studies performed this visit Discharge Plan Discharge Patient Disposition: Home Clinical Impression: Toothache Condition: Stable Prescriptions: New cephalexin 500 mg capsule 500 mg PO TID 7 Days Qty: 21 0RF No Action lorazepam [Ativan] 1 mg tablet 1 mg PO TID Qty: 90 0RF Discharge Orders: Discharge ED (Routine); Ordered 02/10/25 Ordered By: Jacqueline Crane Referrals: Guy Razo, [employer] BEAUTICIAN-C [Primary Care Provider] - 4-7 days Discharge Diet: Advance as tolerated Discharge Activity: Resume usual activity Patient Instructions: Toothache (ED) Print Language: Macedonian Coding Level of Care Code ED Cue Selector for Sreedhar Bhat
[2025-02-10] MEDS: HYDROcodone-acetaminophen 5-325 mg Tablet 1 TAB PO (03:52)
[2025-02-10] MEDS: cephALEXin 500 mg Capsule PO (03:52)
[2025-02-10 03:57] VITALS: BP 106/90; PULSE 76; O2SAT 99
== END 2025-02-10 03:58 | disposition home or self-care (01) ==
PROVIDERS: Emergency Provider Emergency Medicine; PCP Nurse Practitioner
DX: K08.89 Other specified disorders of teeth and supporting structures (principal); Z72.0 Tobacco use
CPT/HCPCS: 99283; J3490; J9999